=== PATIENT | male | born 1975 | race Caucasian/White ===

== ENCOUNTER 2019-10-26 13:00 | Inpatient (IN) | payer BC ==
[~2019-10-26] VITALS: Ht 180.3 cm; Wt 99.1 kg
[2019-10-26] MEDS ORDERED: GLUCOSE 4 GM CHEW TABLET PO PRN (14:00)
[2019-10-26] MEDS ORDERED: ACETAMINOPHEN TAB 650MG DOSE (2X325MG) PO PRN (14:00)
[2019-10-26] MEDS ORDERED: GLUCAGON FOR INJ 1 MG VIAL (J1610) SC PRN (14:00)
[2019-10-26] MEDS ORDERED: DEXTROSE 50% 50 ML SYRINGE IV PRN (14:00)
[2019-10-26] MEDS ORDERED: MOM 30ML SUSPENSION UDC PO PRN (14:00)
--- NOTE | 2019-10-26 14:39 | HPEPDOC ---
[place] [place] Worker Note DATE OF ADMISSION: 10-26-19 DATE OF SERVICE: 10-26-19 TIME OF ADMISSION: Please refer to physician's admission order. SOURCE OF ADMISSION INFORMATION:[facility] records and patient CHIEF COMPLAINT: stroke HISTORY OF PRESENT ILLNESS: 44 pmh htn, dm2, hereditary hypertriglyceridemia, smoker, obesity admitted to [facility] on 10-21-19 for left sided weakness and slurred speech and diagnosed with MRI finding of Acute infarct in the primarily [right] temporoparietal and right inferior lateral frontal region associated with punctate hemorrhages. CTH was negative for acute intracranial hemorrhage and he received TPA for a large vessel right MCA, inferior branch region and right SUPERVISORY AIDE territory occlusion. ECHO on 10-24-19 showed no interatrial shunt with an LVEF of 55-60%. The source of his stroke was deemed to be cardio embolic and he was instructed to follow-up as an outpatient for a loop recorder. . Repeat CTH on 10-24-19 showed, Redemonstration of an evolving infarct in the right temporal parietal region with no acute intracranial hemorrhage identified. No significant interval changes seen. He complained of left hip pain for which imaging was negative for fracture. He was evaluated by therapy, found to have impairments in mobility and ADLs and deemed medically appropriate for discharge to ARU on 10-26-19. REVIEW OF SYSTEMS: The following is a completed review of systems and has been reviewed. Review of systems otherwise unremarkable. PAIN: Patient self reports no pain EYES: No recent vision changes EARS, NOSE, & THROAT: +dysphagia CARDIOVASCULAR: Denies chest pain or palpitations PULMONARY: Denies shortness of breath GASTROINTESTINAL: Denies constipation/diarrhea GENITOURINARY: denies dysuria MUSCULOSKELETAL: left sided weakness NEUROLOGICAL:left sided paresis HEMATOLOGICAL: denies easy bruising SKIN:scattered shiny erythematous and papular lesions PSYCHIATRIC: Unremarkable All other review of systems found to be negative. PAST MEDICAL HISTORY: as per HPI PAST SURGICAL HISTORY: +pilonidal cyst removal ALLERGIES: Please see below. MEDICATIONS: Please see below. 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 GENERAL: Pleasant and cooperative. No acute distress. HEENT: PERRL. Extraocular movements intact. Clear conjunctiva CARDIOVASCULAR: Regular rate and rhythm. No murmurs, rubs, or gallops LUNGS: Clear to auscultation bilaterally. RLL + wheezes. No rhonchi ABDOMEN: Soft, nontender, nondistended. Positive bowel sounds. Normal active bowel sounds NEUROLOGICAL: Alert and oriented times three. Cranial nerves II through XII grossly intact. decreased sensation to light touch on LUE and LLE with left sdied inattention EXTREMITIES: 5\5 strength right upper extremities. Left 2/5 elbow flexors, 1/5 elbow extenors, 3/5 wrist extension, liberal arts dean 2/5 5\5 strength right lower extremity. 2/5 left hip flexors, 4/5 knee extensors/ankle DF/EHL. PF SKIN: sacral fold with healed incision, left elbow effusion, bilat anterior shins with shiny erythematous plaques with yellow pigmented papules, scattered papular lesions LABORATORY DATA: Please see below. IMAGING:Imaging documentation personally reviewed by record FUNCTIONAL STATUS: Premorbid: Independent with all activities of daily life as well as mobility On Admission: Maximum assistance for bathing, upper body dressing, bed chair and wheelchair transfers, toilet transfers, ambulation. GOALS: Mod-I household distances for ambulation, stairs, functional transfers, dressing, toileting, supervision for bathing, medical optimization ASSESSMENT:44-year-old M with past medical history of DM who presents status post right MCA territory infarct PLAN: 1. Rehab- PT/OT advance gait and ADL training, dynamic balance training, stren gthen/stretch/maintain ROM all 4 limbs -[employer] OFFICER evaluate for of and dysphagia- on level 2 and nectar 2. Neuro: s/p right MCA infarct having received tpa with left sided paresis and neglect -c/u ASA and statin for secondary stroke prevention, BP control -prozac for motor recovery -patient reporting right sided headache, suspect nicotine and caffeine withdrawal- will start Nicoderm patch, Fiorecet prn, and standing tylenol 3. Cardiac: hx of HTN, will start metoprolol here, c/u monitor-medicine consulted to assist in management -HLD with hypertriglyceridemia with scattered Xanthoma lesions-c/u statin and Tricor 4. resp: encourage incentive spirometry, monitor for infection -duonebs 5. Endo: pmh DM c/u Levemir and ISS, adjust prn 6. : with with urinary retention at LEO started on Flomax, will c/u- monitor PVRs 7. DVT ppx: Lovenox and TEDs, will order admission doppler 8. GI ppx: protonix 9. Pain: tylenol prn 10. Psych: trazodone qHS 11. Dispo: TBD POST ADMISSION PHYSICIAN EVALUATION: Medical and functional status: Description of medical status, medical assessment: As above. Rehabilitation diagnosis and current and prior cold morbid medical conditions as above. Risk of complications and plans to mitigate them as above. Description of functional status current status is as above. Prior status as above. Status compared to preadmission: There are no clinically significant differences between the patient's current status and the information described on the preadmission screening document. Treatment plan anticipated: Treatment plan is as described above. Required dis ciplines including physical therapy, occupational therapy, others as noted above. Intensity of services: 3 hours a day, 6 days a week. Special considerations: There are no specific special or safety considerations that would likely preclude immediate implementation of an intensive rehabilitation program or subsequently influence the plan of care. ATTESTATION: Considering all the information above, it is my best judgment that this patient requires intensive rehabilitation therapy as described above and an inpatient hospital environment due to the complexity of nursing, medical, and rehabilitation needs required by the patient. Furthermore, this patient can reasonably be expected to participate in an benefit from an inpatient rehabilitation stay with an interdisciplinary team approach to the delivery of rehabilitation care under the direction and supervision of rehabilitation physician. PROGNOSIS:good ESTIMATED LENGTH OF STAY: 28-31 days. PROJECTED DISCHARGE DESTINATION: Home with family support and any durable medical equipment required to increase functional safety and mobility. TIME SPENT COUNSELING AND COORDINATING INITIAL CARE: Greater than 70 minutes. Vital Signs Vital Signs Date Time Temp Pulse Resp B/P (MAP) Pulse Ox O2 Delivery O2 Flow Rate FiO2 10/26/19 14:55 97.9 72 20 166/87 (113) 95 Room Air Home Medications Scheduled Aspirin (Aspirin) 81 Mg Tab.chew, 81 MG PO DAILY, (Reported) Atorvastatin Calcium (Atorvastatin Calcium) 80 Mg Tablet, 80 MG PO DAILY, (Reported) Enoxaparin Sodium (Lovenox) 40 Mg/0.4 Ml Syringe, 40 MG SC DAILY, (Reported) Fenofibrate Nanocrystallized (Fenofibrate) 145 Mg Tablet, 145 MG PO DAILY, (Reported) Fluoxetine HCl (Prozac) 20 Mg Capsule, 20 MG PO DAILY, (Reported) Insulin Glargine (Lantus) 100 Unit/1 Ml Vial, 10 UNITS SC QHS, (Reported) Insulin Human Lispro (Humalog) 100 Unit/1 Ml Vial, 1 DOSE SC AC, (Reported) PER SLIDING SCALE Magnesium Oxide (Magnesium Oxide) 400 Mg Tablet, 400 MG PO DAILY, (Reported) Tamsulosin HCl (Flomax) 0.4 Mg Capsule, 0.4 MG PO DAILY, (Reported) Scheduled PRN Acetaminophen (Tylenol) 325 Mg Tablet, 650 MG PO Q6H PRN for PAIN, (Reported) Diclofenac Sodium (Voltaren) 100 Gm Gel..gram., 2 GRAMS TOP TID PRN for PAIN, (Reported) APPLY TO RIGHT HIP Ketorolac Tromethamine (Ketorolac Tromethamine) 10 Mg Tablet, 10 MG PO Q6H PRN for PAIN, (Reported) Allergies Coded Allergies: lactose (Verified Adverse Reaction, Mild, GI UPSET, 10/26/19) A-FIB/CHADSVASC A-FIB History Current/History of A-Fib/PAF?: No TERRANCE PULIDO MD Oct 26, 2019 14:38
[2019-10-26 14:55] VITALS: BP 166/87
[2019-10-26] MEDS ORDERED: FLOM0.4C39 PO (15:41)
[2019-10-26] MEDS ORDERED: KETO10TAB PO (15:41)
[2019-10-26] MEDS ORDERED: ATOR80TA59 PO (15:41)
[2019-10-26] MEDS ORDERED: ACET-907 PO (15:41)
[2019-10-26] MEDS ORDERED: FENO145T7 PO (15:41)
[2019-10-26] MEDS ORDERED: ASPI81CH33 PO (15:41)
[2019-10-26] MEDS ORDERED: PROZ20CA11 PO (15:41)
[2019-10-26] MEDS ORDERED: LOVE1INJ SC (15:41)
[2019-10-26] MEDS ORDERED: INSUHUMDS SC (15:41)
[2019-10-26] MEDS ORDERED: VOLT1GEL15 TOP (15:41)
[2019-10-26] MEDS ORDERED: MAGN400T2 PO (15:41)
[2019-10-26] MEDS ORDERED: INSULANT SC (15:41)
[2019-10-26] MEDS: NICOTINE 14 MG/24 HR TRANSDERMAL TD SCH (17:58)
[2019-10-26] MEDS: HumaLOG INSULIN (NovoLOG) PER UNIT SC SCH ×2 (17:58→21:00)
[2019-10-26] MEDS: ACETAMINOPHEN TAB 650MG DOSE (2X325MG) PO SCH ×2 (17:58→21:58)
[2019-10-26] MEDS: IPRATROPIUM 0.5MG/ALBUTEROL 2.5MG INH SOL UD 3ML (DUONEB)(J7620) NEB SCH ×2 (18:09→19:39)
[2019-10-26] MEDS ORDERED: LEVEMIR (INSULIN DETEMIR) 1 UNITS/0.01ML SC SCH (21:00)
[2019-10-26 21:17] VITALS: BP 150/79
[2019-10-26] MEDS: traZODone 25MG PER 1/2 TABLET PO SCH (21:57)
[2019-10-26] MEDS: METOPROLOL TART 25 MG TABLET PO SCH (21:58)
[2019-10-26] MEDS: DOCUSATE SODIUM 100 MG CAP PO SCH (21:58)
[2019-10-26] MEDS: SENNA 8.6 MG TAB (SENOKOT) PO SCH (21:59)
[2019-10-27] VITALS (9 sets, daily range): BP systolic 146–211; BP diastolic 71–110
[2019-10-27] MEDS: FIORICET TAB PO PRN ×3 (01:24→12:37)
[2019-10-27] MEDS: IPRATROPIUM 0.5MG/ALBUTEROL 2.5MG INH SOL UD 3ML (DUONEB)(J7620) NEB SCH ×3 (07:02→19:56)
[2019-10-27 07:06] LABS: BASO % 0.2 % (0.0-1.0); EOS # 0.3 10^3/uL (0.0-0.5); EOS % 4.6 % (0.0-3.0); HEMATOCRIT 42.7 % (42.0-52.0); HEMOGLOBIN 14.6 g/dl (13.5-17.5); LYMPH # 1.5 10^3/uL (1.5-5.0); LYMPH % 25.4 % (24.0-44.0); MEAN CORPUSCULAR HEMOGLOBIN 29.9 pg (27.0-33.0); MEAN CORPUSCULAR HGB CONC 34.2 g/dl (32.0-36.5); MEAN CORPUSCULAR VOLUME 87.3 fl (80.0-96.0); MONO # 0.6 10^3/uL (0.0-0.8); NEUTROPHILS # 3.5 10^3/uL (1.5-8.5); NEUTROPHILS % 59.5 % (36.0-66.0); PLATELET COUNT, AUTOMATED 180 10^3/uL (150-450); RED BLOOD COUNT 4.89 10^6/uL (4.30-6.10); WHITE BLOOD COUNT 5.9 10^3/uL (4.0-10.0)
[2019-10-27 07:41] LABS: ALBUMIN 3.2 GM/DL (3.2-5.2); ALT/SGPT 49 U/L (12-78); BLOOD UREA NITROGEN 15 MG/DL (7-18); CALCIUM LEVEL 8.6 MG/DL (8.5-10.1); CARBON DIOXIDE LEVEL 32 MEQ/L (21-32); CHLORIDE LEVEL 104 MEQ/L (98-107); GLOMERULAR FILTRATION RATE > 60.0 (>60); GLUCOSE, FASTING 164 MG/DL (70-100); SODIUM LEVEL 137 MEQ/L (136-145); TOTAL PROTEIN 6.3 GM/DL (6.4-8.2)
--- NOTE | 2019-10-27 08:44 | REP ---
Clinical: Immobility . Technique: Davila scale and color Doppler evaluation of the right and left lower extremities using linear high frequency transducer. Findings: Ultrasound examination of the right and left lower extremity deep venous structures from the common femoral vein to the popliteal vein demonstrates normal compressibility flow and wave patterns in response to respiration and augmentation. There is no evidence for deep venous thrombosis. Incidental duplicated left mid femoral vein. Impression: No evidence for deep venous thrombosis the bilateral lower extremities . Electronically Signed by Sina Wick MD 10/27/2019 08:36 A
[2019-10-27] MEDS: NICOTINE 14 MG/24 HR TRANSDERMAL TD SCH (08:55)
[2019-10-27] MEDS: HumaLOG INSULIN (NovoLOG) PER UNIT SC SCH ×4 (08:56→21:00)
[2019-10-27] MEDS: DOCUSATE SODIUM 100 MG CAP PO SCH ×2 (08:57→21:00)
[2019-10-27] MEDS: FLUoxetine 20 MG CAP PO SCH (08:57)
[2019-10-27] MEDS: ENOXAPARIN 40 MG/0.4 ML SYRINGE (J1650) SC SCH (08:57)
[2019-10-27] MEDS: ACETAMINOPHEN TAB 650MG DOSE (2X325MG) PO SCH ×3 (08:58→22:23)
[2019-10-27] MEDS: FENOFIBRATE 145 MG TAB (TRICOR) PO SCH (08:58)
[2019-10-27] MEDS: TAMSULOSIN 0.4 MG CAP PO SCH (08:59)
[2019-10-27] MEDS: ASPIRIN 81 MG ENTERIC TAB PO SCH (08:59)
[2019-10-27] MEDS: PANTOPRAZOLE 40MG TAB (PROTONIX) PO SCH (08:59)
[2019-10-27] MEDS: MAGNESIUM OXIDE 400 MG TAB (MAG-OX) PO SCH (08:59)
[2019-10-27] MEDS: METOPROLOL TART 25 MG TABLET PO SCH ×2 (08:59→22:23)
[2019-10-27] MEDS: REMEDY PHYTOPLEX Z-GUARD PASTE 113GM TUBE (FROM STOREROOM PRODUCT) TOP SCH ×3 (09:00→21:00)
[2019-10-27] MEDS ORDERED: BISACODYL 10 MG SUPP PR PRN (10:45)
[2019-10-27] MEDS ORDERED: LABETALOL 100 MG TAB PO ONE (12:30)
[2019-10-27] MEDS: traMADol 50 MG TAB PO PRN (12:38)
[2019-10-27] MEDS ORDERED: ASPIRIN 325 MG TAB PO STA (13:16)
[2019-10-27] MEDS ORDERED: NITROGLYCERIN 0.4 MG SUBL TABLET As Ordered ONE (13:22)
[2019-10-27] MEDS ORDERED: NITROGLYCERIN 0.4 MG SUBL TABLET SL PRN (13:30)
[2019-10-27] MEDS ORDERED: ONDANSETRON 4 MG ORAL DISINTEGRATING TAB (Q0162 PER 1MG) PO PRN (13:30)
[2019-10-27] MEDS ORDERED: ONDANSETRON 4MG/2ML VIAL (J2405) IV ONE ×2 (13:45→20:30)
--- NOTE | 2019-10-27 14:35 | REP ---
Clinical: Recent acute infarction. Findings: Large area of low density and vasogenic edema involves the right frontotemporal and parietal regions consistent with the given history of recent infarction there is mild mass effect with subtle compression to the right lateral ventricle without significant midline shift or evidence for obstructive hydrocephalus. No evidence for hemorrhage. Remainder of the examination appears relatively normal. Findings: 1. Progressive encephalomalacia and low density changes in the right hemisphere consistent with the given history of recent acute infarction. Mild mass effect without complete compression to the right lateral ventricle and without significant midline shift. 2. No evidence for parenchymal or extra-axial hemorrhage. Electronically Signed by Sina Wick MD 10/27/2019 02:27 P
[2019-10-27] MEDS: SENNA 8.6 MG TAB (SENOKOT) PO SCH (21:00)
--- NOTE | 2019-10-27 21:25 | HPEPDOC ---
General Date of Admission Oct 26, 2019 at 14:55 Date of Service: Oct 27, 2019 Attending Physician: BRIELLE CARTER MD Chief Complaint The patient is a 44-year-old male admitted with a reason for visit of Stroke. Source: Patient, Family Exam Limitations: No limitations Severity: Severe Associated Symptoms: Chest Pain, Headaches History of Present Illness 44 yo man with a history of DM2, familial hypertriglyceridemia, active smoker, obesity who is admitted to the ARU for rehabilitation post CVA who was recently admitted to [facility] on 10/21 for acute L sided weakness and slurred speech and had was diagnosed with R MCA stock, seen evolving on initial non con head CT without bleeding and therefore received tPA, had an MRI that confirmed R temporoparietal and right inferior lateral frontal lobe CVA with punctate hemorrhages within the R MCA distribution. Ultimately his stroke was deemed embolic though TTE with bubble study on 10/24 did not show a PFO and he did not have evidence of cardiac thrombi and EF was 55-60% and he was instructed to follow-up as an outpatient for a loop recorder and otherwise not started on anticoagulation. His repeat noncon headt CT on 10/24 did not show any interval bleeding and redemonstrated the initial findings. His course was c/b new onset severe headache that were managed with pain medications, with the best response being from toradol, as well as high anxiety. He was admitted to the ARU on 10/26 and his course was uneventful until this morning when I was called to bedside by nursing reporting an unremitting headache with associated hypertension and 2 hours later was having chest pain/pressure. I ordered an EKG that was stable from prior with RBBB and LAFB without ischemic changes, troponin that was negative, and gave him [id number] and SL nitro that tremendously unfortunately worsened his headache. However, given that he had a recent large CVA and tPA, I did a non con head CT that showed some vasogenic edema with mild midline shift but no hemorrhagic conversion. His headache finally remitted. Home Medications Scheduled Aspirin (Aspirin) 81 Mg Tab.chew, 81 MG PO DAILY, (Reported) Atorvastatin Calcium (Atorvastatin Calcium) 80 Mg Tablet, 80 MG PO DAILY, (Reported) Enoxaparin Sodium (Lovenox) 40 Mg/0.4 Ml Syringe, 40 MG SC DAILY, (Reported) Fenofibrate Nanocrystallized (Fenofibrate) 145 Mg Tablet, 145 MG PO DAILY, (Reported) Fluoxetine HCl (Prozac) 20 Mg Capsule, 20 MG PO DAILY, (Reported) Insulin Glargine (Lantus) 100 Unit/1 Ml Vial, 10 UNITS SC QHS, (Reported) Insulin Human Lispro (Humalog) 100 Unit/1 Ml Vial, 1 DOSE SC AC, (Reported) PER SLIDING SCALE Magnesium Oxide (Magnesium Oxide) 400 Mg Tablet, 400 MG PO DAILY, (Reported) Tamsulosin HCl (Flomax) 0.4 Mg Capsule, 0.4 MG PO DAILY, (Reported) Scheduled PRN Acetaminophen (Tylenol) 325 Mg Tablet, 650 MG PO Q6H PRN for PAIN, (Reported) Diclofenac Sodium (Voltaren) 100 Gm Gel..gram., 2 GRAMS TOP TID PRN for PAIN, (Reported) APPLY TO RIGHT HIP Ketorolac Tromethamine (Ketorolac Tromethamine) 10 Mg Tablet, 10 MG PO Q6H PRN for PAIN, (Reported) Allergies Coded Allergies: lactose (Verified Adverse Reaction, Mild, GI UPSET, 10/26/19) Past Medical History Medical History as per HPI Family History Significant Family History: No pertinent family hx Social History * Smoker: current smoker Alcohol: Denies Drugs: denies Recent Travel/Sick Contacts: Denies: Recent travel, Recent sick contacts Psychosocial History: Anxiety 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, 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, no 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/+ smoking/illicit drugs A-FIB/CHADSVASC A-FIB History Current/History of A-Fib/PAF?: No Current PO Anticoag Therapy: No Age/Risk Factor Scoring CHADSVASC: CHADSVASC Response (Comments) Value Age Risk Factor Age < 65 years old 0 Gender Risk Factor Male 0 Hx of CHF No 0 Hx of HTN Yes 1 Hx of Stroke/TIA/or VTE Yes 2 Hx of Diabetes Yes 1 Hx of Vascular Disease No 0 Total 4 Treatment Treatment ordered: NONE Reason Anticoagulant not given: Not indicated/[id number] Review of Systems Constitutional: Reports: Other (severe headaches recently); Denies: Chills, Fever, Night Sweats Eyes: Denies: Pain, Vision change ENT: Denies: Head Aches, Ear Pain, Dysphagia Skin: Denies: Rash, Lesions, Breakdown Pulmonary: Denies: Dyspnea, Cough Cardiovascular: Denies: Chest Pain, Palpitations, Orthopnea, Paroxysmal Noc. Dyspnea, Lt Headedness Gastrointestinal: Reports: Nausea, Vomiting; Denies: Abdominal Pain, Diarrhea Genitourinary: Denies: Dysuria, Frequency, Incontinence, Retention Hematologic: Denies: Bruising, Bleeding Excessively Endocrine: Denies: Polydipsia, Polyphagia, Polyuria, Heat Intolerance, Cold Intolerance, Other Endocrine Sx Neurological: Reports: Other Symptoms (Left sided hemiparesis) Psych: Reports: Anxiety Physical Examination General Exam: Positive: Alert, No Acute Distress, Other (initially when I met him, he was in no acute distress but he was in moderate distress by the time we were performing the noted work up, and when I returned, he was comfortably laying in bed a few hours later) Eye Exam: Positive: PERRLA, Conjunctiva & lids normal, EOMI; Negative: Sclera icteric ENT Exam: Positive: Atraumatic, Mucous membr. moist/pink, Pharynx Normal Neck Exam: Positive: Supple; Negative: JVD, thyromegaly Chest Exam: Positive: Clear to auscultation, Normal air movement Heart Exam: Positive: Rate Normal, Regular Rhythm, Normal S1, Normal S2; Negative: Murmurs, Rubs Abdomen Exam: Positive: Normal bowel sounds, Soft; Negative: Tenderness, Hepatospenomegaly Extremity Exam: Positive: Normal pulses; Negative: Clubbing, Cyanosis, Edema Skin Exam: Positive: Nl turgor and temperature; Negative: Breakdown, Lesion Neuro Exam: Positive: Strength at 5/5 X4 ext (Full strength, tone and sensation on R and flaccid L upper and lower extremities with little to no sensation at this time. Speech is clear. CN 2-12 are grossly normal) Psych Exam: Positive: Anxiety, Oriented x 3 Vital Signs Vital Signs Date Time Temp Pulse Resp B/P (MAP) Pulse Ox O2 Delivery O2 Flow Rate FiO2 10/27/19 16:15 98.3 76 20 160/88 (112) 95 Room Air Laboratory Data Labs 24H Laboratory Tests 2 10/26/19 20:47: Bedside Glucose (Misc Panel) 214H 10/27/19 06:15: Bedside Glucose (Misc Panel) 147H 10/27/19 06:48: Immature Granulocyte % (Auto) 0.3, Neutrophils (%) (Auto) 59.5, Lymphocytes (%) (Auto) 25.4, Monocytes (%) (Auto) 10.0H, Eosinophils (%) (Auto) 4.6H, Basophils (%) (Auto) 0.2, Neutrophils # (Auto) 3.5, Lymphocytes # (Auto) 1.5, Monocytes # (Auto) 0.6, Eosinophils # (Auto) 0.3, Basophils # (Auto) 0.0, Nucleated Red Blood Cells % (auto) 0.0, Anion Gap 1L, Glomerular Filtration Rate > 60.0, Calcium Level 8.6, Total Bilirubin 1.0, Aspartate Amino Transf (AST/SGOT) 33, Alanine Aminotransferase (ALT/SGPT) 49, Alkaline Phosphatase 64, Total Protein 6.3L, Albumin 3.2, Albumin/Globulin Ratio 1.03 10/27/19 11:39: Bedside Glucose (Misc Panel) 189H 10/27/19 13:37: Troponin I < 0.02 10/27/19 13:41: Bedside Glucose (Misc Panel) 170H 10/27/19 16:50: Bedside Glucose (Misc Panel) 178H CBC/BMP Laboratory Tests 10/27/19 06:48 Assessment/Plan 44-year-old M with past medical history of DM, smoker and HTN who is admitted to the ARU s/p large right MCA CVA with L sided hemiparesis and dysphagia with ongoing intensive rehabilitation with course c/b severe post CVA headaches and non cardiac, likely anxiety related chest pain. s/p right MCA CVA s/p tPA with left sided paresis: -continue ASA -maintain adequate BP control to SBP<160. Switch lopressor BID to amlodipine 10 daily Ongoing episodic severe headaches: -While he has a history of nicotine and caffeine addiction, the severity of the headaches may be due to post CVA with vasogenic edema - continue nicotine patch, Fiorecet prn, and standing tylenol started by PMR physician -Add tramadol 50Q8H PRN for severe headache, and if severe and not responsive to tramadol may give toradol (he reports that it worked well at [facility]) HTN: -may discontinue lopressor BID and start amlodipine 10 tomorrow morning HLD: -lipitor 80mg Hypertriglyceridemia: -fenofibrate DM: -continue home levemir and SSI, FSBG AC/HS and hypoglycemia protocol Dysphagia: -nectar thick per swallow eval recs Rehabilitation: per PMR recommendations DVT ppx: on TEDs and lovenox. Note sure why he had a doppler ultrasound. Plan / VTE VTE Prophylaxis Ordered?: Yes BRIELLE CARTER MD Oct 27, 2019 21:24
[2019-10-27] MEDS: traZODone 25MG PER 1/2 TABLET PO SCH (22:23)
[2019-10-27] MEDS: ATORVASTATIN 20 MG TAB PO SCH (22:23)
[2019-10-27] MEDS: LEVEMIR (INSULIN DETEMIR) 1 UNITS/0.01ML SC SCH (22:26)
--- NOTE | 2019-10-27 22:27 | ECGEPIP ---
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 No prior ECG available for comparison at the time of interpretation. Electronically Signed on 10-27-2019 22:26:57 EST by Jorge Lawson
[2019-10-28] MEDS: traMADol 50 MG TAB PO PRN (01:36)
[2019-10-28] MEDS ORDERED: KETOROLAC 30 MG/ML VIAL (J1885) IV ONE (03:30)
[2019-10-28] MEDS: FIORICET TAB PO PRN (04:53)
[2019-10-28 06:00] VITALS: BP 180/74
[2019-10-28] MEDS: IPRATROPIUM 0.5MG/ALBUTEROL 2.5MG INH SOL UD 3ML (DUONEB)(J7620) NEB SCH ×3 (07:21→19:58)
[2019-10-28] MEDS: METOPROLOL TART 25 MG TABLET PO SCH (07:23)
[2019-10-28] MEDS: ACETAMINOPHEN TAB 650MG DOSE (2X325MG) PO SCH ×4 (07:23→21:49)
[2019-10-28] MEDS: ASPIRIN 81 MG ENTERIC TAB PO SCH (08:47)
[2019-10-28] MEDS: HumaLOG INSULIN (NovoLOG) PER UNIT SC SCH ×4 (08:47→21:00)
[2019-10-28] MEDS: MAGNESIUM OXIDE 400 MG TAB (MAG-OX) PO SCH (08:47)
[2019-10-28] MEDS: TAMSULOSIN 0.4 MG CAP PO SCH (08:47)
[2019-10-28] MEDS: ENOXAPARIN 40 MG/0.4 ML SYRINGE (J1650) SC SCH (08:48)
[2019-10-28] MEDS: FENOFIBRATE 145 MG TAB (TRICOR) PO SCH (08:48)
[2019-10-28] MEDS: DOCUSATE SODIUM 100 MG CAP PO SCH ×2 (08:48→21:49)
[2019-10-28] MEDS: FLUoxetine 20 MG CAP PO SCH (08:48)
[2019-10-28] MEDS: NICOTINE 14 MG/24 HR TRANSDERMAL TD SCH (08:48)
[2019-10-28] MEDS: PANTOPRAZOLE 40MG TAB (PROTONIX) PO SCH (08:48)
[2019-10-28] MEDS: REMEDY PHYTOPLEX Z-GUARD PASTE 113GM TUBE (FROM STOREROOM PRODUCT) TOP SCH ×3 (08:49→21:00)
[2019-10-28] MEDS: **hydrALAZINE HCL** 25 MG TAB PO SCH ×3 (10:33→21:50)
[2019-10-28] MEDS ORDERED: ONDANSETRON 4MG/2ML VIAL (J2405) IV PRN (10:45)
[2019-10-28 14:26] VITALS: BP 140/79
[2019-10-28 20:30] VITALS: BP 132/74
[2019-10-28] MEDS: traZODone 25MG PER 1/2 TABLET PO SCH (21:48)
[2019-10-28] MEDS: SENNA 8.6 MG TAB (SENOKOT) PO SCH (21:48)
[2019-10-28] MEDS: ATORVASTATIN 20 MG TAB PO SCH (21:48)
[2019-10-28] MEDS: METOPROLOL TART 50 MG TAB PO SCH (21:49)
[2019-10-28] MEDS: LEVEMIR (INSULIN DETEMIR) 1 UNITS/0.01ML SC SCH (21:49)
[2019-10-29 05:23] VITALS: BP_SYST 128; BP_SYST 158; BP_DIAS 60; BP_DIAS 74
[2019-10-29] MEDS: FIORICET TAB PO PRN (06:00)
[2019-10-29] MEDS: traMADol 50 MG TAB PO PRN (06:05)
[2019-10-29 06:45] VITALS: BP 146/74
[2019-10-29] MEDS: IPRATROPIUM 0.5MG/ALBUTEROL 2.5MG INH SOL UD 3ML (DUONEB)(J7620) NEB SCH ×3 (07:35→20:36)
[2019-10-29] MEDS: DOCUSATE SODIUM 100 MG CAP PO SCH ×2 (07:58→20:43)
[2019-10-29] MEDS: ACETAMINOPHEN TAB 650MG DOSE (2X325MG) PO SCH ×3 (08:05→20:43)
[2019-10-29] MEDS: FENOFIBRATE 145 MG TAB (TRICOR) PO SCH (08:05)
[2019-10-29] MEDS: HumaLOG INSULIN (NovoLOG) PER UNIT SC SCH ×4 (08:05→20:44)
[2019-10-29] MEDS: ENOXAPARIN 40 MG/0.4 ML SYRINGE (J1650) SC SCH (08:05)
[2019-10-29] MEDS: NICOTINE 14 MG/24 HR TRANSDERMAL TD SCH (08:06)
[2019-10-29] MEDS: FLUoxetine 20 MG CAP PO SCH (08:06)
[2019-10-29] MEDS: TAMSULOSIN 0.4 MG CAP PO SCH (08:06)
[2019-10-29] MEDS: ASPIRIN 81 MG ENTERIC TAB PO SCH (08:06)
[2019-10-29] MEDS: PANTOPRAZOLE 40MG TAB (PROTONIX) PO SCH (08:06)
[2019-10-29] MEDS: MAGNESIUM OXIDE 400 MG TAB (MAG-OX) PO SCH (08:06)
[2019-10-29] MEDS: **hydrALAZINE HCL** 25 MG TAB PO SCH ×3 (08:06→20:43)
[2019-10-29] MEDS: METOPROLOL TART 50 MG TAB PO SCH ×2 (08:06→20:43)
[2019-10-29 08:52] LABS: HEMOGLOBIN 14.9 g/dl (13.5-17.5); MEAN CORPUSCULAR HEMOGLOBIN 30.3 pg (27.0-33.0); MEAN CORPUSCULAR HGB CONC 34.7 g/dl (32.0-36.5); MEAN CORPUSCULAR VOLUME 87.6 fl (80.0-96.0); PLATELET COUNT, AUTOMATED 177 10^3/uL (150-450); RED BLOOD COUNT 4.91 10^6/uL (4.30-6.10); WHITE BLOOD COUNT 6.7 10^3/uL (4.0-10.0)
[2019-10-29] MEDS: REMEDY PHYTOPLEX Z-GUARD PASTE 113GM TUBE (FROM STOREROOM PRODUCT) TOP SCH ×3 (09:00→20:45)
[2019-10-29] MEDS: GABAPENTIN 100 MG CAP PO SCH ×3 (10:50→20:42)
[2019-10-29] MEDS: DULoxetine 30 MG CAP (CYMBALTA) PO SCH (10:50)
[2019-10-29 14:00] VITALS: BP 138/70
[2019-10-29] MEDS: ATORVASTATIN 20 MG TAB PO SCH (20:43)
[2019-10-29] MEDS: traZODone 25MG PER 1/2 TABLET PO SCH (20:43)
[2019-10-29] MEDS: SENNA 8.6 MG TAB (SENOKOT) PO SCH (20:44)
[2019-10-29] MEDS: LEVEMIR (INSULIN DETEMIR) 1 UNITS/0.01ML SC SCH (20:45)
[2019-10-29 22:21] VITALS: BP 150/86
[2019-10-30 05:57] VITALS: BP 148/84
[2019-10-30] MEDS: IPRATROPIUM 0.5MG/ALBUTEROL 2.5MG INH SOL UD 3ML (DUONEB)(J7620) NEB SCH ×3 (07:14→19:46)
[2019-10-30] MEDS: HumaLOG INSULIN (NovoLOG) PER UNIT SC SCH ×4 (07:27→21:00)
[2019-10-30] MEDS: PANTOPRAZOLE 40MG TAB (PROTONIX) PO SCH (07:27)
[2019-10-30] MEDS: GABAPENTIN 100 MG CAP PO SCH ×3 (07:27→21:24)
[2019-10-30] MEDS: ENOXAPARIN 40 MG/0.4 ML SYRINGE (J1650) SC SCH (07:27)
[2019-10-30] MEDS: ASPIRIN 81 MG ENTERIC TAB PO SCH (07:28)
[2019-10-30] MEDS: FENOFIBRATE 145 MG TAB (TRICOR) PO SCH (07:28)
[2019-10-30] MEDS: DULoxetine 30 MG CAP (CYMBALTA) PO SCH (07:28)
[2019-10-30] MEDS: TAMSULOSIN 0.4 MG CAP PO SCH (07:28)
[2019-10-30] MEDS: MAGNESIUM OXIDE 400 MG TAB (MAG-OX) PO SCH (07:28)
[2019-10-30] MEDS: DOCUSATE SODIUM 100 MG CAP PO SCH ×2 (07:28→21:00)
[2019-10-30] MEDS: METOPROLOL TART 50 MG TAB PO SCH ×2 (07:28→21:21)
[2019-10-30] MEDS: **hydrALAZINE HCL** 25 MG TAB PO SCH ×3 (07:29→21:22)
[2019-10-30] MEDS: NICOTINE 14 MG/24 HR TRANSDERMAL TD SCH (07:29)
[2019-10-30] MEDS: ACETAMINOPHEN TAB 650MG DOSE (2X325MG) PO SCH ×3 (07:29→21:22)
[2019-10-30] MEDS: REMEDY PHYTOPLEX Z-GUARD PASTE 113GM TUBE (FROM STOREROOM PRODUCT) TOP SCH ×3 (07:29→21:00)
[2019-10-30 08:26] LABS: BLOOD UREA NITROGEN 18 MG/DL (7-18); CALCIUM LEVEL 8.8 MG/DL (8.5-10.1); CARBON DIOXIDE LEVEL 29 MEQ/L (21-32); CHLORIDE LEVEL 103 MEQ/L (98-107); CREATININE FOR GFR 0.85 MG/DL (0.70-1.30); GLOMERULAR FILTRATION RATE > 60.0 (>60); GLUCOSE, FASTING 199 MG/DL (70-100); SODIUM LEVEL 137 MEQ/L (136-145)
[2019-10-30] MEDS ORDERED: DULoxetine 30 MG CAP (CYMBALTA) PO SCH (09:00)
[2019-10-30] MEDS: traMADol 50 MG TAB PO PRN (12:32)
[2019-10-30 14:00] VITALS: BP 110/56
[2019-10-30 20:00] VITALS: BP 130/67
[2019-10-30] MEDS: SENNA 8.6 MG TAB (SENOKOT) PO SCH ×2 (21:00→21:20)
[2019-10-30] MEDS: LEVEMIR (INSULIN DETEMIR) 1 UNITS/0.01ML SC SCH (21:20)
[2019-10-30] MEDS: traZODone 25MG PER 1/2 TABLET PO SCH (21:23)
[2019-10-30] MEDS: ATORVASTATIN 20 MG TAB PO SCH (21:23)
[2019-10-31] VITALS: BP 146/77
[2019-10-31 06:00] VITALS: BP 144/70
[2019-10-31] MEDS: IPRATROPIUM 0.5MG/ALBUTEROL 2.5MG INH SOL UD 3ML (DUONEB)(J7620) NEB SCH ×3 (07:30→19:33)
--- NOTE | 2019-10-31 07:42 | REP ---
AP pelvis: There are no pelvic fractures. The hip articulations and sacroiliac articulations are unremarkable. Mineralization is normal. Impression: Negative AP pelvis. Right hip two views: There is no fracture or dislocation. Mineralization joint space are unremarkable. There are no calcifications or foreign bodies. Impression: Negative right hip. Electronically Signed by Philip Bryan MD 10/31/2019 07:33 A
[2019-10-31] MEDS: PANTOPRAZOLE 40MG TAB (PROTONIX) PO SCH (09:09)
[2019-10-31] MEDS: ASPIRIN 81 MG ENTERIC TAB PO SCH (09:09)
[2019-10-31] MEDS: DULoxetine 30 MG CAP (CYMBALTA) PO SCH (09:09)
[2019-10-31] MEDS: TAMSULOSIN 0.4 MG CAP PO SCH (09:09)
[2019-10-31] MEDS: NICOTINE 14 MG/24 HR TRANSDERMAL TD SCH (09:09)
[2019-10-31] MEDS: FENOFIBRATE 145 MG TAB (TRICOR) PO SCH (09:09)
[2019-10-31] MEDS: HumaLOG INSULIN (NovoLOG) PER UNIT SC SCH ×4 (09:09→20:32)
[2019-10-31] MEDS: **hydrALAZINE HCL** 25 MG TAB PO SCH ×3 (09:10→20:31)
[2019-10-31] MEDS: MAGNESIUM OXIDE 400 MG TAB (MAG-OX) PO SCH (09:11)
[2019-10-31] MEDS: DOCUSATE SODIUM 100 MG CAP PO SCH ×2 (09:11→20:30)
[2019-10-31] MEDS: GABAPENTIN 100 MG CAP PO SCH ×3 (09:12→20:30)
[2019-10-31] MEDS: ACETAMINOPHEN TAB 650MG DOSE (2X325MG) PO SCH ×3 (09:12→20:30)
[2019-10-31] MEDS: METOPROLOL TART 50 MG TAB PO SCH ×2 (09:12→20:31)
[2019-10-31] MEDS: REMEDY PHYTOPLEX Z-GUARD PASTE 113GM TUBE (FROM STOREROOM PRODUCT) TOP SCH ×3 (09:13→20:32)
[2019-10-31] MEDS: ENOXAPARIN 40 MG/0.4 ML SYRINGE (J1650) SC SCH (09:13)
[2019-10-31] MEDS ORDERED: traMADol 50 MG TAB PO PRN (11:15)
[2019-10-31] MEDS ORDERED: PILL CUTTER 1 EACH XX PRN (11:30)
[2019-10-31 14:00] VITALS: BP 116/64
--- NOTE | 2019-10-31 15:04 | IPNPDOC ---
PM&R Progress Note DATE OF SERVICE: Oct 31, 2019 [employer] Fore[employer] Progress Note Subjective: Patient reports his headaches are much better since starting cymalta and gabapentin. He denies ay new weakness. REVIEW OF SYSTEMS: The following is a completed review of systems and has been reviewed. Review of systems otherwise unremarkable. PAIN: Patient self reports no pain EYES: No recent vision changes EARS, NOSE, & THROAT: +dysphagia CARDIOVASCULAR: Denies chest pain or palpitations PULMONARY: Denies shortness of breath GASTROINTESTINAL: Denies constipation/diarrhea GENITOURINARY: denies dysuria MUSCULOSKELETAL: left sided weakness NEUROLOGICAL:left sided paresis HEMATOLOGICAL: denies easy bruising SKIN:scattered shiny erythematous and papular lesions PSYCHIATRIC: Unremarkable All other review of systems found to be negative. PHYSICAL EXAMINATION: VITAL SIGNS: Please see below. GENERAL: Pleasant and cooperative. No acute distress. HEENT: PERRL. Extraocular movements intact. Clear conjunctiva CARDIOVASCULAR: Regular rate and rhythm. No murmurs, rubs, or gallops LUNGS: Clear to auscultation bilaterally. RLL + wheezes. No rhonchi ABDOMEN: Soft, nontender, nondistended. Positive bowel sounds. Normal active bowel sounds NEUROLOGICAL: Alert and oriented times three. Cranial nerves II through XII grossly intact. decreased sensation to light touch on LUE and LLE with left sdied inattention EXTREMITIES: 5\5 strength right upper extremities. Left 2/5 elbow flexors, 1/5 elbow extenors, 3/5 wrist extension, collections director 2/5 5\5 strength right lower extremity. 2/5 left hip flexors, 4/5 knee extensors/ ankle DF/EHL. PF SKIN: sacral fold with healed incision, left elbow effusion, bilat anterior shins with shiny erythematous plaques with yellow pigmented papules, scattered papular lesions ASSESSMENT:44-year-old M with past medical history of DM who presents status post right MCA territory infarct PLAN: 1. 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 Neuro: s/p right MCA infarct having received tpa with left sided paresis and neglect -c/u ASA and statin for secondary stroke prevention, BP control -prozac for motor recovery -patient reporting right sided headache, suspect nicotine and caffeine withdrawal as patient reports he had >10 cups of coffee a day, headaches improving since initiation of Cymbalta and gabapentin over the weekend -CTH on 10-27-19 negative for new infarct, no new deficit on exam 3. Cardiac: hx of HTN-c/u metoprolol and hydralazine, c/u monitor-medicine consulted to assist in management -HLD with hypertriglyceridemia with scattered Xanthoma lesions-c/u statin and Tricor 4. resp: encourage incentive spirometry, monitor for infection -c/u duonebs 5. Endo: pmh DM c/u Levemir and ISS, adjust prn 6. : with with urinary retention at [facility] started on Flomax, will c/u- monitor PVRs 7. DVT ppx: Lovenox and TEDs,admission dopplers negative 8. GI ppx: protonix 9. Pain: patient with right sided headaches, c/u Cymbalta and gabapentin dosing, tramadol prn (patient not taking) 10. Psych: trazodone qHS, will increase to 50mg 11. Dispo: TBD Allergies Coded Allergies: lactose (Verified Adverse Reaction, Mild, GI UPSET, 10/26/19) Vital Signs Vital Signs Date Time Temp Pulse Resp B/P (MAP) Pulse Ox O2 Delivery O2 Flow Rate FiO2 10/31/19 14:00 97.4 75 16 116/64 (81) 96 Room Air Laboratory Data Labs 24H Laboratory Tests 2 10/30/19 16:31: Bedside Glucose (Misc Panel) 219H 10/30/19 20:08: Bedside Glucose (Misc Panel) 171H 10/31/19 08:18: Bedside Glucose (Misc Panel) 180H 10/31/19 12:08: Bedside Glucose (Misc Panel) 130H Current Medications Current Medications Current Medications Medications (Trade) Dose Ordered Sig/Anthony Route PRN Reason Start Time Stop Time Status Last Admin Dose Admin Acetaminophen (Tylenol Tab) 650 mg Q4HP PRN PO fever/MILD PAIN (PS 1-4) 10/26/19 14:00 10/26/19 17:07 DC Acetaminophen (Tylenol Tab) 650 mg TID PO 10/26/19 16:00 10/31/19 09:12 Acetaminophen/ Butalbital/ Caffeine (Fioricet) 1 ea Q4HP PRN PO HEADACHE 2/19/20 17:15 10/29/19 06:00 Albuterol/ Ipratropium (Duoneb (Ipr 0.5mg/Alb 2.5mg)) 3 ml RTID NEB 10/26/19 20:00 10/31/19 07:30 Aspirin (Aspirin) 325 mg STAT STAT PO 10/27/19 13:16 10/27/19 13:21 DC 10/27/19 13:26 Aspirin (Ecotrin) 81 mg DAILY PO 10/27/19 09:00 10/31/19 09:09 Atorvastatin Calcium (Lipitor) 80 mg QHS PO 10/27/19 21:00 10/30/19 21:23 Bisacodyl (Dulcolax Suppository) 10 mg DAILYPRN PRN GA BOWEL CARE/CONSTIPATION 10/27/19 10:45 Dextrose (Dextrose 50%) 25 ml ASDIRECTED PRN IV SEE LABEL COMMENTS 10/26/19 14:00 Docusate Sodium (Colace) 100 mg BID PO 10/26/19 21:00 10/31/19 09:11 Duloxetine HCl (Cymbalta) 30 mg DAILY PO 10/29/19 09:00 10/31/19 09:09 Duloxetine HCl (Cymbalta) 30 mg DAILY PO 10/30/19 09:00 10/29/19 10:05 DC Enoxaparin Sodium (Lovenox) 40 mg DAILY SC 10/27/19 09:00 10/31/19 09:13 Fenofibrate (Tricor) 145 mg DAILY PO 10/27/19 09:00 10/31/19 09:09 Fluoxetine HCl (PROzac) 20 mg DAILY PO 10/27/19 09:00 10/29/19 09:29 DC 10/29/19 08:06 Gabapentin (Neurontin) 100 mg TID PO 10/29/19 09:00 10/31/19 11:46 DC 10/31/19 09:12 Gabapentin (Neurontin) 200 mg TID PO 10/31/19 16:00 Glucagon (Glucagon) 1 mg ASDIRECTED PRN SC SEE LABEL COMMENTS 10/26/19 14:00 Glucose (Glucose) 16 GM ASDIRECTED PRN PO SEE LABEL COMMENTS 10/26/19 14:00 Home Med (Med Rec Complete!) ASDIRECTED XX 10/26/19 15:45 10/26/19 15:51 DC Hydralazine HCl (Apresoline) 25 mg TID PO 10/28/19 09:00 10/31/19 09:10 Insulin Detemir (Levemir Insulin) 5 units QHS SC 10/26/19 21:00 10/27/19 09:52 DC 10/26/19 21:59 Insulin Detemir (Levemir Insulin) 8 units QHS SC 10/27/19 21:00 10/30/19 21:20 Insulin Human Lispro (HumaLOG INSULIN) SEE PROTOCOL TABLE AC SC 10/26/19 17:30 10/31/19 13:15 Insulin Human Lispro (HumaLOG INSULIN) SEE PROTOCOL TABLE QHS OR 10/26/19 21:00 Magnesium Hydroxide (Milk Of Magnesia) 30 ml DAILYPRN PRN PO CONSTIPATION 10/26/19 14:00 Magnesium Oxide (Mag-Ox) 400 mg DAILY PO 10/27/19 09:00 10/31/19 09:11 Metoprolol Tartrate (Lopressor) 25 mg BID PO 10/26/19 21:00 10/28/19 09:40 DC 10/28/19 07:23 Metoprolol Tartrate (Lopressor) 50 mg BID PO 10/28/19 21:00 10/31/19 09:12 Nicotine (Nicoderm Cq 14mg) 1 patch DAILY TD 10/26/19 09:00 10/31/19 09:09 Nitroglycerin (Nitrostat (1/ 150)) 0.4 mg Q5MP PRN SL CHEST PAIN 10/27/19 13:30 10/27/19 15:57 Ondansetron HCl (ZOFRAN INJection) 4 mg Q8HP PRN IV NAUSEA OR VOMITING 10/28/19 10:45 Ondansetron HCl (Zofran Odt) 4 mg Q6HP PRN PO NAUSEA OR VOMITING 10/27/19 13:30 10/29/19 07:10 Pantoprazole Sodium (Protonix) 40 mg DAILY PO 10/27/19 09:00 10/31/19 09:09 Senna (Senokot) 1 tab QHS PO 10/26/19 21:00 10/28/19 21:48 Tamsulosin HCl (Flomax) 0.4 mg DAILY PO 10/27/19 09:00 10/31/19 09:09 Tramadol HCl (Ultram) 25 mg Q6H PRN PO SEVERE HEADACHE 10/31/19 11:15 Tramadol HCl (Ultram) 50 mg Q4H PRN PO SEVERE HEADACHE 10/28/19 09:45 10/31/19 11:15 DC 10/30/19 12:32 Tramadol HCl (Ultram) 50 mg Q8H PRN PO SEVERE HEADACHE 10/27/19 12:30 10/28/19 09:40 DC 10/28/19 01:36 Trazodone HCl (Desyrel) 25 mg QHS PO 10/26/19 21:00 10/31/19 11:46 DC 10/30/19 21:23 Trazodone HCl (Desyrel) 50 mg QHS PO 10/31/19 21:00 TERRANCE PULIDO MD Oct 31, 2019 15:04
[2019-10-31 20:00] VITALS: BP 134/78
[2019-10-31] MEDS: ATORVASTATIN 20 MG TAB PO SCH (20:30)
[2019-10-31] MEDS: traZODone 50 MG TAB PO SCH (20:31)
[2019-10-31] MEDS: LEVEMIR (INSULIN DETEMIR) 1 UNITS/0.01ML SC SCH (20:32)
[2019-10-31] MEDS: SENNA 8.6 MG TAB (SENOKOT) PO SCH (20:32)
[2019-11-01 06:00] VITALS: BP 133/67
[2019-11-01] MEDS: IPRATROPIUM 0.5MG/ALBUTEROL 2.5MG INH SOL UD 3ML (DUONEB)(J7620) NEB SCH ×3 (07:14→20:08)
[2019-11-01] MEDS: HumaLOG INSULIN (NovoLOG) PER UNIT SC SCH ×4 (07:32→20:01)
[2019-11-01] MEDS: GABAPENTIN 100 MG CAP PO SCH ×3 (07:33→21:09)
[2019-11-01] MEDS: ACETAMINOPHEN TAB 650MG DOSE (2X325MG) PO SCH ×3 (07:34→21:09)
[2019-11-01] MEDS: DOCUSATE SODIUM 100 MG CAP PO SCH ×2 (07:34→21:00)
[2019-11-01] MEDS: MAGNESIUM OXIDE 400 MG TAB (MAG-OX) PO SCH (07:34)
[2019-11-01] MEDS: DULoxetine 30 MG CAP (CYMBALTA) PO SCH (07:34)
[2019-11-01] MEDS: PANTOPRAZOLE 40MG TAB (PROTONIX) PO SCH (07:35)
[2019-11-01] MEDS: TAMSULOSIN 0.4 MG CAP PO SCH (07:35)
[2019-11-01] MEDS: **hydrALAZINE HCL** 25 MG TAB PO SCH ×3 (07:35→21:10)
[2019-11-01] MEDS: ASPIRIN 81 MG ENTERIC TAB PO SCH (07:35)
[2019-11-01] MEDS: METOPROLOL TART 50 MG TAB PO SCH ×2 (07:35→21:10)
[2019-11-01] MEDS: FENOFIBRATE 145 MG TAB (TRICOR) PO SCH (07:35)
[2019-11-01] MEDS: ENOXAPARIN 40 MG/0.4 ML SYRINGE (J1650) SC SCH (07:36)
[2019-11-01] MEDS: NICOTINE 14 MG/24 HR TRANSDERMAL TD SCH (07:36)
[2019-11-01 08:04] LABS: HEMATOCRIT 44.3 % (42.0-52.0); HEMOGLOBIN 15.3 g/dl (13.5-17.5); MEAN CORPUSCULAR HEMOGLOBIN 30.2 pg (27.0-33.0); MEAN CORPUSCULAR HGB CONC 34.5 g/dl (32.0-36.5); MEAN CORPUSCULAR VOLUME 87.5 fl (80.0-96.0); PLATELET COUNT, AUTOMATED 191 10^3/uL (150-450); RED BLOOD COUNT 5.06 10^6/uL (4.30-6.10); WHITE BLOOD COUNT 6.2 10^3/uL (4.0-10.0)
[2019-11-01 08:27] LABS: BLOOD UREA NITROGEN 17 MG/DL (7-18); CALCIUM LEVEL 8.7 MG/DL (8.5-10.1); CARBON DIOXIDE LEVEL 30 MEQ/L (21-32); CHLORIDE LEVEL 104 MEQ/L (98-107); CREATININE FOR GFR 0.83 MG/DL (0.70-1.30); GLOMERULAR FILTRATION RATE > 60.0 (>60); GLUCOSE, FASTING 164 MG/DL (70-100); POTASSIUM SERUM 4.4 MEQ/L (3.5-5.1); SODIUM LEVEL 139 MEQ/L (136-145)
[2019-11-01] MEDS: REMEDY PHYTOPLEX Z-GUARD PASTE 113GM TUBE (FROM STOREROOM PRODUCT) TOP SCH ×3 (09:00→21:00)
[2019-11-01 14:00] VITALS: BP 133/60
[2019-11-01 15:47] VITALS: BP 119/56
--- NOTE | 2019-11-01 17:49 | IPNPDOC ---
PM&R Progress Note DATE OF SERVICE: Nov 01, 2019 Digital Communications Manager Progress Note Subjective: Patient reports he is feeling well, but that he is having difficulty coordinating his left leg to move because his left arm starts to move instead. REVIEW OF SYSTEMS: The following is a completed review of systems and has been reviewed. Review of systems otherwise unremarkable. PAIN: Patient self reports no pain EYES: No recent vision changes EARS, NOSE, & THROAT: +dysphagia CARDIOVASCULAR: Denies chest pain or palpitations PULMONARY: Denies shortness of breath GASTROINTESTINAL: Denies constipation/diarrhea GENITOURINARY: denies dysuria MUSCULOSKELETAL: left sided weakness NEUROLOGICAL:left sided paresis HEMATOLOGICAL: denies easy bruising SKIN:scattered shiny erythematous and papular lesions PSYCHIATRIC: Unremarkable All other review of systems found to be negative. PHYSICAL EXAMINATION: VITAL SIGNS: Please see below. GENERAL: Pleasant and cooperative. No acute distress. HEENT: PERRL. Extraocular movements intact. Clear conjunctiva CARDIOVASCULAR: Regular rate and rhythm. No murmurs, rubs, or gallops LUNGS: Clear to auscultation bilaterally. no wheezes. No rhonchi ABDOMEN: Soft, nontender, nondistended. Positive bowel sounds. Normal active bowel sounds NEUROLOGICAL: Alert and oriented times three. Cranial nerves II through XII g rossly intact. decreased sensation to light touch on LUE and LLE with left sided inattention EXTREMITIES: 5\5 strength right upper extremities. Left 3/5 elbow flexors, 2/5 elbow extensors, 3/5 wrist extension, paper handler 2/5 5\5 strength right lower extremity. 3/5 left hip flexors, 4/5 knee extensors/a nkle DF/EHL. PF SKIN: sacral fold with healed incision, left elbow effusion, bilat anterior shins with shiny erythematous plaques with yellow pigmented papules, scattered papular lesions ASSESSMENT:44-year-old M with past medical history of DM who presents status post right MCA territory infarct PLAN: 1. 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 Neuro: s/p right MCA infarct having received tpa with left sided paresis and neglect -c/u ASA and statin for secondary stroke prevention, BP control -prozac for motor recovery -patient reporting right sided headache, suspect nicotine and caffeine withdrawal as patient reports he had >10 cups of coffee a day, headaches improving since initiation of Cymbalta and gabapentin over the weekend -CTH on 10-27-19 negative for new infarct, no new deficit on exam 3. Cardiac: hx of HTN-c/u metoprolol and hydralazine, c/u monitor-medicine consulted to assist in management -HLD with hypertriglyceridemia with scattered Xanthoma lesions-c/u statin and Tricor 4. resp: encourage incentive spirometry, monitor for infection -c/u duonebs 5. Endo: pmh DM c/u Levemir and ISS, adjust prn 6. : with with urinary retention at [facility] started on Flomax, will c/u- monitor PVRs, voiding well 7. DVT ppx: Lovenox and TEDs,admission dopplers negative 8. GI ppx: protonix 9. Pain: patient with right sided headaches that have resolved, c/u Cymbalta and gabapentin dosing, tramadol prn (patient not taking) 10. Psych: trazodone 50mg qHS 11. Dispo: 11-22-19 to home, progressing towards goals Allergies Coded Allergies: lactose (Verified Adverse Reaction, Mild, GI UPSET, 10/26/19) Vital Signs Vital Signs Date Time Temp Pulse Resp B/P (MAP) Pulse Ox O2 Delivery O2 Flow Rate FiO2 11/01/19 15:47 119/56 (77) 11/01/19 14:00 98.0 80 18 94 Room Air Laboratory Data CBC/BMP Laboratory Tests 11/01/19 07:42 Labs 24H Laboratory Tests 2 10/31/19 19:52: Bedside Glucose (Misc Panel) 195H 11/01/19 05:36: Bedside Glucose (Misc Panel) 162H 11/01/19 07:42: Nucleated Red Blood Cells % (auto) 0.0, Anion Gap 5L, Glomerular Filtration Rate > 60.0, Calcium Level 8.7 11/01/19 11:31: Bedside Glucose (Misc Panel) 292H 11/01/19 16:45: Bedside Glucose (Misc Panel) 187H Current Medications Current Medications Current Medications Medications (Trade) Dose Ordered Sig/Anthony Route PRN Reason Start Time Stop Time Status Last Admin Dose Admin Acetaminophen (Tylenol Tab) 650 mg Q4HP PRN PO fever/MILD PAIN (PS 1-4) 10/26/19 14:00 10/26/19 17:07 DC Acetaminophen (Tylenol Tab) 650 mg TID PO 10/26/19 16:00 11/01/19 15:43 Acetaminophen/ Butalbital/ Caffeine (Fioricet) 1 ea Q4HP PRN PO HEADACHE 10/26/19 17:15 10/29/19 06:00 Albuterol/ Ipratropium (Duoneb (Ipr 0.5mg/Alb 2.5mg)) 3 ml RTID NEB 10/26/19 20:00 11/01/19 13:19 Aspirin (Aspirin) 325 mg STAT STAT PO 10/27/19 13:16 10/27/19 13:21 DC 10/27/19 13:26 Aspirin (Ecotrin) 81 mg DAILY PO 10/27/19 09:00 11/01/19 07:35 Atorvastatin Calcium (Lipitor) 80 mg QHS PO 10/27/19 21:00 10/31/19 20:30 Bisacodyl (Dulcolax Suppository) 10 mg DAILYPRN PRN SD BOWEL CARE/CONSTIPATION 10/27/19 10:45 Dextrose (Dextrose 50%) 25 ml ASDIRECTED PRN IV SEE LABEL COMMENTS 10/26/19 14:00 Docusate Sodium (Colace) 100 mg BID PO 10/26/19 21:00 11/01/19 07:34 Duloxetine HCl (Cymbalta) 30 mg DAILY PO 10/29/19 09:00 11/01/19 07:34 Duloxetine HCl (Cymbalta) 30 mg DAILY PO 10/30/19 09:00 10/29/19 10:05 DC Enoxaparin Sodium (Lovenox) 40 mg DAILY SC 10/27/19 09:00 11/01/19 07:36 Fenofibrate (Tricor) 145 mg DAILY PO 10/27/19 09:00 11/01/19 07:35 Fluoxetine HCl (PROzac) 20 mg DAILY PO 10/27/19 09:00 10/29/19 09:29 DC 10/29/19 08:06 Gabapentin (Neurontin) 100 mg TID PO 10/29/19 09:00 10/31/19 11:46 DC 10/31/19 09:12 Gabapentin (Neurontin) 200 mg TID PO 10/31/19 16:00 11/01/19 15:43 Glucagon (Glucagon) 1 mg ASDIRECTED PRN SC SEE LABEL COMMENTS 10/26/19 14:00 Glucose (Glucose) 16 GM ASDIRECTED PRN PO SEE LABEL COMMENTS 10/26/19 14:00 Home Med (Med Rec Complete!) ASDIRECTED XX 10/26/19 15:45 10/26/19 15:51 DC Hydralazine HCl (Apresoline) 25 mg TID PO 10/28/19 09:00 11/01/19 15:43 Insulin Detemir (Levemir Insulin) 5 units QHS SC 10/26/19 21:00 10/27/19 09:52 DC 10/26/19 21:59 Insulin Detemir (Levemir Insulin) 8 units QHS SC 10/27/19 21:00 10/31/19 20:32 Insulin Human Lispro (HumaLOG INSULIN) SEE PROTOCOL TABLE AC SC 10/26/19 17:30 11/01/19 16:59 Insulin Human Lispro (HumaLOG INSULIN) SEE PROTOCOL TABLE QHS SC 10/26/19 21:00 Magnesium Hydroxide (Milk Of Magnesia) 30 ml DAILYPRN PRN PO CONSTIPATION 10/26/19 14:00 Magnesium Oxide (Mag-Ox) 400 mg DAILY PO 10/27/19 09:00 11/01/19 07:34 Metoprolol Tartrate (Lopressor) 25 mg BID PO 10/26/19 21:00 10/28/19 09:40 DC 10/28/19 07:23 Metoprolol Tartrate (Lopressor) 50 mg BID PO 10/28/19 21:00 11/01/19 07:35 Nicotine (Nicoderm Cq 14mg) 1 patch DAILY TD 10/26/19 09:00 11/01/19 07:36 Nitroglycerin (Nitrostat (1/ 150)) 0.4 mg Q5MP PRN SL CHEST PAIN 10/27/19 13:30 10/27/19 15:57 Ondansetron HCl (ZOFRAN INJection) 4 mg Q8HP PRN IV NAUSEA OR VOMITING 10/28/19 10:45 Ondansetron HCl (Zofran Odt) 4 mg Q6HP PRN PO NAUSEA OR VOMITING 10/27/19 13:30 10/29/19 07:10 Pantoprazole Sodium (Protonix) 40 mg DAILY PO 10/27/19 09:00 11/01/19 07:35 Senna (Senokot) 1 tab QHS PO 10/26/19 21:00 10/28/19 21:48 Tamsulosin HCl (Flomax) 0.4 mg DAILY PO 10/27/19 09:00 11/01/19 07:35 Tramadol HCl (Ultram) 25 mg Q6H PRN PO SEVERE HEADACHE 10/31/19 11:15 Tramadol HCl (Ultram) 50 mg Q4H PRN PO SEVERE HEADACHE 10/28/19 09:45 10/31/19 11:15 DC 10/30/19 12:32 Tramadol HCl (Ultram) 50 mg Q8H PRN PO SEVERE HEADACHE 10/27/19 12:30 10/28/19 09:40 DC 10/28/19 01:36 Trazodone HCl (Desyrel) 25 mg QHS PO 10/26/19 21:00 10/31/19 11:46 DC 10/30/19 21:23 Trazodone HCl (Desyrel) 50 mg QHS PO 10/31/19 21:00 10/31/19 20:31 TERRANCE PULIDO MD Nov 01, 2019 17:49
[2019-11-01 20:00] VITALS: BP 132/85
[2019-11-01] MEDS: SENNA 8.6 MG TAB (SENOKOT) PO SCH (21:00)
[2019-11-01] MEDS: LEVEMIR (INSULIN DETEMIR) 1 UNITS/0.01ML SC SCH (21:09)
[2019-11-01] MEDS: ATORVASTATIN 20 MG TAB PO SCH (21:09)
[2019-11-01] MEDS: traZODone 50 MG TAB PO SCH (21:10)
[2019-11-02 06:00] VITALS: BP 137/74
[2019-11-02] MEDS: IPRATROPIUM 0.5MG/ALBUTEROL 2.5MG INH SOL UD 3ML (DUONEB)(J7620) NEB SCH ×3 (07:18→20:00)
[2019-11-02] MEDS: ASPIRIN 81 MG ENTERIC TAB PO SCH (08:26)
[2019-11-02] MEDS: METOPROLOL TART 50 MG TAB PO SCH ×2 (08:26→21:16)
[2019-11-02] MEDS: PANTOPRAZOLE 40MG TAB (PROTONIX) PO SCH (08:26)
[2019-11-02] MEDS: ENOXAPARIN 40 MG/0.4 ML SYRINGE (J1650) SC SCH (08:26)
[2019-11-02] MEDS: TAMSULOSIN 0.4 MG CAP PO SCH (08:26)
[2019-11-02] MEDS: **hydrALAZINE HCL** 25 MG TAB PO SCH ×3 (08:26→21:16)
[2019-11-02] MEDS: GABAPENTIN 100 MG CAP PO SCH ×3 (08:26→21:16)
[2019-11-02] MEDS: DULoxetine 30 MG CAP (CYMBALTA) PO SCH (08:27)
[2019-11-02] MEDS: ACETAMINOPHEN TAB 650MG DOSE (2X325MG) PO SCH ×3 (08:27→21:18)
[2019-11-02] MEDS: FENOFIBRATE 145 MG TAB (TRICOR) PO SCH (08:27)
[2019-11-02] MEDS: MAGNESIUM OXIDE 400 MG TAB (MAG-OX) PO SCH (08:27)
[2019-11-02] MEDS: DOCUSATE SODIUM 100 MG CAP PO SCH ×2 (08:27→21:00)
[2019-11-02] MEDS: NICOTINE 14 MG/24 HR TRANSDERMAL TD SCH (08:27)
[2019-11-02] MEDS: REMEDY PHYTOPLEX Z-GUARD PASTE 113GM TUBE (FROM STOREROOM PRODUCT) TOP SCH ×3 (08:28→21:00)
[2019-11-02] MEDS: HumaLOG INSULIN (NovoLOG) PER UNIT SC SCH ×4 (08:28→21:00)
[2019-11-02 14:00] VITALS: BP 136/66
[2019-11-02] MEDS: SENNA 8.6 MG TAB (SENOKOT) PO SCH (21:00)
[2019-11-02] MEDS: ATORVASTATIN 20 MG TAB PO SCH (21:16)
[2019-11-02] MEDS: traZODone 50 MG TAB PO SCH (21:16)
[2019-11-02] MEDS: LEVEMIR (INSULIN DETEMIR) 1 UNITS/0.01ML SC SCH (21:17)
[2019-11-02 21:20] VITALS: BP 133/60
[2019-11-03 05:53] VITALS: BP 129/62
[2019-11-03] MEDS: IPRATROPIUM 0.5MG/ALBUTEROL 2.5MG INH SOL UD 3ML (DUONEB)(J7620) NEB SCH ×3 (06:12→19:16)
[2019-11-03] MEDS: REMEDY PHYTOPLEX Z-GUARD PASTE 113GM TUBE (FROM STOREROOM PRODUCT) TOP SCH ×3 (09:00→21:00)
[2019-11-03] MEDS: DOCUSATE SODIUM 100 MG CAP PO SCH ×2 (09:00→21:00)
[2019-11-03] MEDS: HumaLOG INSULIN (NovoLOG) PER UNIT SC SCH ×4 (09:16→21:00)
[2019-11-03] MEDS: ACETAMINOPHEN TAB 650MG DOSE (2X325MG) PO SCH ×3 (09:17→22:05)
[2019-11-03] MEDS: GABAPENTIN 100 MG CAP PO SCH ×3 (09:17→22:04)
[2019-11-03] MEDS: PANTOPRAZOLE 40MG TAB (PROTONIX) PO SCH (09:18)
[2019-11-03] MEDS: METOPROLOL TART 50 MG TAB PO SCH ×2 (09:18→22:04)
[2019-11-03] MEDS: MAGNESIUM OXIDE 400 MG TAB (MAG-OX) PO SCH (09:18)
[2019-11-03] MEDS: TAMSULOSIN 0.4 MG CAP PO SCH (09:18)
[2019-11-03] MEDS: DULoxetine 30 MG CAP (CYMBALTA) PO SCH (09:18)
[2019-11-03] MEDS: ASPIRIN 81 MG ENTERIC TAB PO SCH (09:18)
[2019-11-03] MEDS: FENOFIBRATE 145 MG TAB (TRICOR) PO SCH (09:19)
[2019-11-03] MEDS: ENOXAPARIN 40 MG/0.4 ML SYRINGE (J1650) SC SCH (09:19)
[2019-11-03] MEDS: **hydrALAZINE HCL** 25 MG TAB PO SCH ×3 (09:19→22:04)
[2019-11-03] MEDS: NICOTINE 14 MG/24 HR TRANSDERMAL TD SCH (09:20)
--- NOTE | 2019-11-03 12:08 | IPNPDOC ---
Text Note Date of Service The patient was seen on 11/03/19. NOTE Pt was seen and examined this morning. Now new complaints No over night events. PHYSICAL EXAMINATION: GENERAL: No acute distress. HEENT: PERRL. Extraocular movements intact. Clear conjunctiva CARDIOVASCULAR: Regular rate and rhythm. No murmurs, rubs, or gallops LUNGS: Clear to auscultation bilaterally. mild exp wheezes rt mid lung field. No rhonchi ABDOMEN: Soft, nontender, nondistended. Positive bowel sounds. Normal active bowel sounds NEUROLOGICAL: Alert and oriented times three. Cranial nerves II through XII grossly intact. decreased sensation to touch on LUE and LLE with left sided neglect. 5\5 strength right upper extremities. Left 2/5 elbow flexors, 1/5 elbow extenors, 3/5 wrist extension, 5\5 strength right lower extremity. 2/5 left hip flexors. SKIN: bilateral anterior shins with shiny erythematous plaques with yellow pigmented papules, scattered papular lesions Assessment/Plan 44-year-old M with past medical history of DM, smoker and HTN who is admitted to the ARU s/p large right MCA CVA with L sided hemiparesis and dysphagia with ongoing intensive rehabilitation with course c/b severe post CVA headaches 1: Right MCA CVA s/p tPA with left sided paresis: continue ASA and statin. maintain adequate BP control to SBP<160. amlodipine 10 daily 2: Ongoing episodic severe headaches: Cont symptomatic meds PRN . 3: HTN: amlodipine 10 daily 4: HLD: lipitor 80mg, and fenofibrate 5: DM: continue home levemir and SSI, FSBG AC/HS and hypoglycemia protocol 6: Dysphagia: nectar thick per swallow eval recs Rehabilitation: per PMR recommendations DVT ppx: on TEDs and lovenox. VS,Fishbone, I+O VS, Fishbone, I+O Vital Signs Date Time Temp Pulse Resp B/P (MAP) Pulse Ox O2 Delivery O2 Flow Rate FiO2 11/03/19 09:18 88 132/60 11/03/19 05:53 97.0 18 95 Room Air I&O- Last 24 Hours up to 6 AM 11/03/19 06:00 Intake Total 1110 ml Output Total 400 ml Balance 710 ml GAMA FRANZ MD Nov 03, 2019 12:08
--- NOTE | 2019-11-03 12:37 | IPNPDOC ---
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 He reports he is pleased with his progress. REVIEW OF SYSTEMS: The following is a completed review of systems and has been reviewed. Review of systems otherwise unremarkable. PAIN: Patient self reports no pain EYES: No recent vision changes EARS, NOSE, & THROAT: +dysphagia CARDIOVASCULAR: Denies chest pain or palpitations PULMONARY: Denies shortness of breath GASTROINTESTINAL: Denies constipation/diarrhea GENITOURINARY: denies dysuria MUSCULOSKELETAL: left sided weakness NEUROLOGICAL:left sided paresis HEMATOLOGICAL: denies easy bruising SKIN:scattered shiny erythematous and papular lesions PSYCHIATRIC: Unremarkable All other review of systems found to be negative. PHYSICAL EXAMINATION: VITAL SIGNS: Please see below. GENERAL: Pleasant and cooperative. No acute distress. HEENT: PERRL. Extraocular movements intact. Clear conjunctiva CARDIOVASCULAR: Regular rate and rhythm. No murmurs, rubs, or gallops LUNGS: Clear to auscultation bilaterally. no wheezes. No rhonchi ABDOMEN: Soft, nontender, nondistended. Positive bowel sounds. Normal active belinda wel sounds NEUROLOGICAL: Alert and oriented times three. Cranial nerves II through XII grossly intact. decreased sensation to light touch on LUE and LLE with left sided inattention EXTREMITIES: 5\5 strength right upper extremities. Left 3/5 elbow flexors, 2/5 elbow extensors, 3/5 wrist extension, health care recruiter 2/5 5\5 strength right lower extremity. 3/5 left hip flexors, 4/5 knee extenso rs/ankle DF/EHL. PF SKIN: sacral fold with healed incision, left elbow effusion, bilat anterior shins with shiny erythematous plaques with yellow pigmented papules, scattered papular lesions ASSESSMENT:44-year-old M with past medical history of DM who presents status post right MCA territory infarct PLAN: 1. Rehab- PT/OT advance gait and ADL training, dynamic balance training, strengthen/stretch/maintain ROM all 4 limbs- able to advance his left leg in PT -STUMP SHOOTER evaluate for of and dysphagia- on level 2 and upgraded to thins 2. Neuro: s/p right MCA infarct having received tpa with left sided paresis and neglect -c/u ASA and statin for secondary stroke prevention, BP control -prozac for motor recovery -patient reporting right sided headache, suspect nicotine and caffeine withdrawal as patient reports he had >10 cups of coffee a day, headaches improving since initiation of Cymbalta and gabapentin over the weekend -CTH on 10-27-19 negative for new infarct, no new deficit on exam 3. Cardiac: hx of HTN-c/u metoprolol and hydralazine, c/u monitor-medicine consulted to assist in management -HLD with hypertriglyceridemia with scattered Xanthoma lesions-c/u statin and Tricor 4. resp: encourage incentive spirometry, monitor for infection -c/u duonebs 5. Endo: pmh DM c/u Levemir and ISS, adjust prn 6. : with with urinary retention at [facility] started on Flomax, will c/u- monitor PVRs, voiding well 7. DVT ppx: Lovenox and TEDs,admission dopplers negative- 8. GI ppx: protonix 9. Pain: patient with right sided headaches that have resolved, c/u Cymbalta and gabapentin dosing, tramadol prn (patient not taking) 10. Psych: trazodone 50mg qHS 11. Dispo: 11-22-19 to home, progressing towards goals Allergies Coded Allergies: lactose (Verified Adverse Reaction, Mild, GI UPSET, 10/26/19) Vital Signs Vital Signs Date Time Temp Pulse Resp B/P (MAP) Pulse Ox O2 Delivery O2 Flow Rate FiO2 11/03/19 09:18 88 132/60 11/03/19 05:53 97.0 18 95 Room Air Laboratory Data Labs 24H Laboratory Tests 2 11/02/19 16:51: Bedside Glucose (Misc Panel) 163H 11/02/19 20:40: Bedside Glucose (Misc Panel) 209H 11/03/19 06:07: Bedside Glucose (Misc Panel) 197H 11/03/19 11:47: Bedside Glucose (Misc Panel) 165H Current Medications Current Medications Current Medications Medications (Trade) Dose Ordered Sig/Anthony Route PRN Reason Start Time Stop Time Status Last Admin Dose Admin Acetaminophen (Tylenol Tab) 650 mg Q4HP PRN PO fever/MILD PAIN (PS 1-4) 10/26/19 14:00 10/26/19 17:07 DC Acetaminophen (Tylenol Tab) 650 mg TID PO 10/26/19 16:00 11/03/19 09:17 Acetaminophen/ Butalbital/ Caffeine (Fioricet) 1 ea Q4HP PRN PO HEADACHE 10/26/19 17:15 10/29/19 06:00 Albuterol/ Ipratropium (Duoneb (Ipr 0.5mg/Alb 2.5mg)) 3 ml RTID NEB 10/26/19 20:00 11/03/19 06:12 Aspirin (Aspirin) 325 mg STAT STAT PO 10/27/19 13:16 10/27/19 13:21 DC 10/27/19 13:26 Aspirin (Ecotrin) 81 mg DAILY PO 10/27/19 09:00 11/03/19 09:18 Atorvastatin Calcium (Lipitor) 80 mg QHS PO 10/27/19 21:00 11/02/19 21:16 Bisacodyl (Dulcolax Suppository) 10 mg DAILYPRN PRN [place] BOWEL CARE/CONSTIPATION 10/27/19 10:45 Dextrose (Dextrose 50%) 25 ml ASDIRECTED PRN IV SEE LABEL COMMENTS 10/26/19 14:00 Docusate Sodium (Colace) 100 mg BID PO 10/26/19 21:00 11/01/19 07:34 Duloxetine HCl (Cymbalta) 30 mg DAILY PO 10/29/19 09:00 11/03/19 09:18 Duloxetine HCl (Cymbalta) 30 mg DAILY PO 10/30/19 09:00 10/29/19 10:05 DC Enoxaparin Sodium (Lovenox) 40 mg DAILY SC 10/27/19 09:00 11/03/19 09:19 Fenofibrate (Tricor) 145 mg DAILY PO 10/27/19 09:00 11/03/19 09:19 Fluoxetine HCl (PROzac) 20 mg DAILY PO 10/27/19 09:00 10/29/19 09:29 DC 10/29/19 08:06 Gabapentin (Neurontin) 100 mg TID PO 10/29/19 09:00 10/31/19 11:46 DC 10/31/19 09:12 Gabapentin (Neurontin) 200 mg TID PO 10/31/19 16:00 11/03/19 09:17 Glucagon (Glucagon) 1 mg ASDIRECTED PRN SC SEE LABEL COMMENTS 10/26/19 14:00 Glucose (Glucose) 16 GM ASDIRECTED PRN PO SEE LABEL COMMENTS 10/26/19 14:00 Home Med (Med Rec Complete!) ASDIRECTED XX 10/26/19 15:45 10/26/19 15:51 DC Hydralazine HCl (Apresoline) 25 mg TID PO 10/28/19 09:00 11/03/19 09:19 Insulin Detemir (Levemir Insulin) 5 units QHS SC 10/26/19 21:00 10/27/19 09:52 DC 10/26/19 21:59 Insulin Detemir (Levemir Insulin) 8 units QHS SC 10/27/19 21:00 11/02/19 10:45 DC 11/01/19 21:09 Insulin Detemir (Levemir Insulin) 10 units QHS SC 11/02/19 21:00 11/02/19 21:17 Insulin Human Lispro (HumaLOG INSULIN) SEE PROTOCOL TABLE AC SC 10/26/19 17:30 11/03/19 12:15 Insulin Human Lispro (HumaLOG INSULIN) SEE PROTOCOL TABLE QHS SC 10/26/19 21:00 Magnesium Hydroxide (Milk Of Magnesia) 30 ml DAILYPRN PRN PO CONSTIPATION 10/26/19 14:00 Magnesium Oxide (Mag-Ox) 400 mg DAILY PO 10/27/19 09:00 11/03/19 09:18 Metoprolol Tartrate (Lopressor) 25 mg BID PO 10/26/19 21:00 10/28/19 09:40 DC 10/28/19 07:23 Metoprolol Tartrate (Lopressor) 50 mg BID PO 10/28/19 21:00 11/03/19 09:18 Miscellaneous (Unresolved Clarification Entry) SEE LABEL COMMENTS DAILY XX 11/02/19 09:00 Nicotine (Nicoderm Cq 14mg) 1 patch DAILY TD 10/26/19 09:00 11/03/19 09:20 Nitroglycerin (Nitrostat (1/ 150)) 0.4 mg Q5MP PRN SL CHEST PAIN 10/27/19 13:30 10/27/19 15:57 Ondansetron HCl (ZOFRAN INJection) 4 mg Q8HP PRN IV NAUSEA OR VOMITING 10/28/19 10:45 Ondansetron HCl (Zofran Odt) 4 mg Q6HP PRN PO NAUSEA OR VOMITING 10/27/19 13:30 10/29/19 07:10 Pantoprazole Sodium (Protonix) 40 mg DAILY PO 10/27/19 09:00 11/03/19 09:18 Senna (Senokot) 1 tab QHS PO 10/26/19 21:00 10/28/19 21:48 Tamsulosin HCl (Flomax) 0.4 mg DAILY PO 10/27/19 09:00 11/03/19 09:18 Tramadol HCl (Ultram) 25 mg Q6H PRN PO SEVERE HEADACHE 10/31/19 11:15 Tramadol HCl (Ultram) 50 mg Q4H PRN PO SEVERE HEADACHE 10/28/19 09:45 10/31/19 11:15 DC 10/30/19 12:32 Tramadol HCl (Ultram) 50 mg Q8H PRN PO SEVERE HEADACHE 10/27/19 12:30 10/28/19 09:40 DC 10/28/19 01:36 Trazodone HCl (Desyrel) 25 mg QHS PO 10/26/19 21:00 10/31/19 11:46 DC 10/30/19 21:23 Trazodone HCl (Desyrel) 50 mg QHS PO 10/31/19 21:00 11/02/19 21:16 TERRANCE PULIDO MD Nov 03, 2019 12:37
--- NOTE | 2019-11-03 12:45 | IPNPDOC ---
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 He denies fevers or chills. REVIEW OF SYSTEMS: The following is a completed review of systems and has been reviewed. Review of systems otherwise unremarkable. PAIN: Patient self reports no pain EYES: No recent vision changes EARS, NOSE, & THROAT: +dysphagia CARDIOVASCULAR: Denies chest pain or palpitations PULMONARY: Denies shortness of breath GASTROINTESTINAL: Denies constipation/diarrhea GENITOURINARY: denies dysuria MUSCULOSKELETAL: left sided weakness NEUROLOGICAL:left sided paresis HEMATOLOGICAL: denies easy bruising SKIN:scattered shiny erythematous and papular lesions PSYCHIATRIC: Unremarkable All other review of systems found to be negative. PHYSICAL EXAMINATION: VITAL SIGNS: Please see below. GENERAL: Pleasant and cooperative. No acute distress. HEENT: PERRL. Extraocular movements intact. Clear conjunctiva CARDIOVASCULAR: Regular rate and rhythm. No murmurs, rubs, or gallops LUNGS: Clear to auscultation bilaterally. no wheezes. No rhonchi ABDOMEN: Soft, nontender, nondistended. Positive bowel sounds. Normal active bowel sounds NEUROLOGICAL: Alert and oriented times three. Cranial nerves II through XII grossly intact. decreased sensation to light touch on LUE and LLE with left sided inattention EXTREMITIES: 5\5 strength right upper extremities. Left 3/5 elbow flexors, 2/5 elbow extensors, 3/5 wrist extension, esthetician/spa coordinator 2/5 5\5 strength right lower extremity. 3/5 left hip flexors, 4/5 knee extensors/ankle DF/EHL. PF SKIN: sacral fold with healed incision, left elbow effusion, bilat anterior shins with shiny erythematous plaques with yellow pigmented papules, scattered papular lesions ASSESSMENT:44-year-old M with past medical history of DM who presents status p ost right MCA territory infarct PLAN: 1. 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 Neuro: s/p right MCA infarct having received tpa with left sided paresis and neglect -c/u ASA and statin for secondary stroke prevention, BP control -prozac for motor recovery -patient reporting right sided headache, suspect nicotine and caffeine w ithdrawal as patient reports he had >10 cups of coffee a day, headaches improving since initiation of Cymbalta and gabapentin -CTH on 10-27-19 negative for new infarct, no new deficit on exam 3. Cardiac: hx of HTN-c/u metoprolol and hydralazine, c/u monitor-medicine consulted to assist in management -HLD with hypertriglyceridemia with scattered Xanthoma lesions-c/u statin and Tricor 4. resp: encourage incentive spirometry, monitor for infection -c/u duonebs 5. Endo: pmh DM c/u Levemir and ISS, adjust prn 6. : with with urinary retention at [facility] started on Flomax, will c/u- monitor PVRs, voiding well 7. DVT ppx: Lovenox and TEDs, dopplers negative x2 8. GI ppx: protonix 9. Pain: patient with right sided headaches that have resolved, c/u Cymbalta and gabapentin dosing, tramadol (will d/c) 10. Psych: trazodone 50mg qHS 11. Dispo: 11-22-19 to home, progressing towards goals Allergies Coded Allergies: lactose (Verified Adverse Reaction, Mild, GI UPSET, 10/26/19) Vital Signs Vital Signs Date Time Temp Pulse Resp B/P (MAP) Pulse Ox O2 Delivery O2 Flow Rate FiO2 11/03/19 09:18 88 132/60 11/03/19 05:53 97.0 18 95 Room Air Laboratory Data Labs 24H Laboratory Tests 2 11/02/19 16:51: Bedside Glucose (Misc Panel) 163H 11/02/19 20:40: Bedside Glucose (Misc Panel) 209H 11/03/19 06:07: Bedside Glucose (Misc Panel) 197H 11/03/19 11:47: Bedside Glucose (Misc Panel) 165H Current Medications Current Medications Current Medications Medications (Trade) Dose Ordered Sig/Anthony Route PRN Reason Start Time Stop Time Status Last Admin Dose Admin Acetaminophen (Tylenol Tab) 650 mg Q4HP PRN PO fever/MILD PAIN (PS 1-4) 10/26/19 14:00 10/26/19 17:07 DC Acetaminophen (Tylenol Tab) 650 mg TID PO 2/19/20 16:00 11/03/19 09:17 Acetaminophen/ Butalbital/ Caffeine (Fioricet) 1 ea Q4HP PRN PO HEADACHE 10/26/19 17:15 10/29/19 06:00 Albuterol/ Ipratropium (Duoneb (Ipr 0.5mg/Alb 2.5mg)) 3 ml RTID NEB 10/26/19 20:00 11/03/19 06:12 Aspirin (Aspirin) 325 mg STAT STAT PO 10/27/19 13:16 10/27/19 13:21 DC 10/27/19 13:26 Aspirin (Ecotrin) 81 mg DAILY PO 10/27/19 09:00 11/03/19 09:18 Atorvastatin Calcium (Lipitor) 80 mg QHS PO 10/27/19 21:00 11/02/19 21:16 Bisacodyl (Dulcolax Suppository) 10 mg DAILYPRN PRN [place] BOWEL CARE/CONSTIPATION 10/27/19 10:45 Dextrose (Dextrose 50%) 25 ml ASDIRECTED PRN IV SEE LABEL COMMENTS 10/26/19 14:00 Docusate Sodium (Colace) 100 mg BID PO 10/26/19 21:00 11/01/19 07:34 Duloxetine HCl (Cymbalta) 30 mg DAILY PO 10/29/19 09:00 11/03/19 09:18 Duloxetine HCl (Cymbalta) 30 mg DAILY PO 10/30/19 09:00 10/29/19 10:05 DC Enoxaparin Sodium (Lovenox) 40 mg DAILY SC 10/27/19 09:00 11/03/19 09:19 Fenofibrate (Tricor) 145 mg DAILY PO 10/27/19 09:00 11/03/19 09:19 Fluoxetine HCl (PROzac) 20 mg DAILY PO 10/27/19 09:00 10/29/19 09:29 DC 10/29/19 08:06 Gabapentin (Neurontin) 100 mg TID PO 10/29/19 09:00 10/31/19 11:46 DC 10/31/19 09:12 Gabapentin (Neurontin) 200 mg TID PO 10/31/19 16:00 11/03/19 09:17 Glucagon (Glucagon) 1 mg ASDIRECTED PRN SC SEE LABEL COMMENTS 10/26/19 14:00 Glucose (Glucose) 16 GM ASDIRECTED PRN PO SEE LABEL COMMENTS 10/26/19 14:00 Home Med (Med Rec Complete!) ASDIRECTED XX 10/26/19 15:45 10/26/19 15:51 DC Hydralazine HCl (Apresoline) 25 mg TID PO 10/28/19 09:00 11/03/19 09:19 Insulin Detemir (Levemir Insulin) 5 units QHS SC 10/26/19 21:00 10/27/19 09:52 DC 10/26/19 21:59 Insulin Detemir (Levemir Insulin) 8 units QHS SC 10/27/19 21:00 11/02/19 10:45 DC 11/01/19 21:09 Insulin Detemir (Levemir Insulin) 10 units QHS SC 11/02/19 21:00 11/02/19 21:17 Insulin Human Lispro (HumaLOG INSULIN) SEE PROTOCOL TABLE AC SC 10/26/19 17:30 11/03/19 12:15 Insulin Human Lispro (HumaLOG INSULIN) SEE PROTOCOL TABLE QHS SC 10/26/19 21:00 Magnesium Hydroxide (Milk Of Magnesia) 30 ml DAILYPRN PRN PO CONSTIPATION 10/26/19 14:00 Magnesium Oxide (Mag-Ox) 400 mg DAILY PO 10/27/19 09:00 11/03/19 09:18 Metoprolol Tartrate (Lopressor) 25 mg BID PO 10/26/19 21:00 10/28/19 09:40 DC 10/28/19 07:23 Metoprolol Tartrate (Lopressor) 50 mg BID PO 10/28/19 21:00 11/03/19 09:18 Miscellaneous (Unresolved Clarification Entry) SEE LABEL COMMENTS DAILY XX 11/02/19 09:00 Nicotine (Nicoderm Cq 14mg) 1 patch DAILY TD 10/26/19 09:00 11/03/19 09:20 Nitroglycerin (Nitrostat (1/ 150)) 0.4 mg Q5MP PRN SL CHEST PAIN 10/27/19 13:30 10/27/19 15:57 Ondansetron HCl (ZOFRAN INJection) 4 mg Q8HP PRN IV NAUSEA OR VOMITING 10/28/19 10:45 Ondansetron HCl (Zofran Odt) 4 mg Q6HP PRN PO NAUSEA OR VOMITING 10/27/19 13:30 10/29/19 07:10 Pantoprazole Sodium (Protonix) 40 mg DAILY PO 10/27/19 09:00 11/03/19 09:18 Senna (Senokot) 1 tab QHS PO 10/26/19 21:00 10/28/19 21:48 Tamsulosin HCl (Flomax) 0.4 mg DAILY PO 10/27/19 09:00 11/03/19 09:18 Tramadol HCl (Ultram) 25 mg Q6H PRN PO SEVERE HEADACHE 10/31/19 11:15 Tramadol HCl (Ultram) 50 mg Q4H PRN PO SEVERE HEADACHE 10/28/19 09:45 10/31/19 11:15 DC 10/30/19 12:32 Tramadol HCl (Ultram) 50 mg Q8H PRN PO SEVERE HEADACHE 10/27/19 12:30 10/28/19 09:40 DC 10/28/19 01:36 Trazodone HCl (Desyrel) 25 mg QHS PO 10/26/19 21:00 10/31/19 11:46 DC 10/30/19 21:23 Trazodone HCl (Desyrel) 50 mg QHS PO 10/31/19 21:00 11/02/19 21:16 TERRANCE PULIDO MD Nov 03, 2019 12:45
[2019-11-03 14:36] VITALS: BP 127/73
--- NOTE | 2019-11-03 15:27 | REP ---
Bilateral lower extremity deep vein duplex ultrasound: A comparison is 10/27/2019. The deep veins demonstrate normal compression, normal Doppler color flow and normal Doppler waveforms with respiration augmentation from the popliteal veins to the common femoral veins bilaterally. Impression: There is no deep vein thrombus in the right or left lower extremities. Electronically Signed by Philip Bryan MD 11/03/2019 03:19 P
[2019-11-03] MEDS: SENNA 8.6 MG TAB (SENOKOT) PO SCH (21:00)
[2019-11-03 21:53] VITALS: BP 159/77
[2019-11-03] MEDS: LEVEMIR (INSULIN DETEMIR) 1 UNITS/0.01ML SC SCH (22:03)
[2019-11-03] MEDS: traZODone 50 MG TAB PO SCH (22:04)
[2019-11-03] MEDS: ATORVASTATIN 20 MG TAB PO SCH (22:05)
[2019-11-04 05:44] VITALS: BP 135/70
[2019-11-04] MEDS: IPRATROPIUM 0.5MG/ALBUTEROL 2.5MG INH SOL UD 3ML (DUONEB)(J7620) NEB SCH ×3 (07:40→19:29)
[2019-11-04] MEDS: **hydrALAZINE HCL** 25 MG TAB PO SCH ×3 (08:31→20:54)
[2019-11-04] MEDS: HumaLOG INSULIN (NovoLOG) PER UNIT SC SCH ×4 (08:31→20:57)
[2019-11-04] MEDS: DULoxetine 30 MG CAP (CYMBALTA) PO SCH (08:32)
[2019-11-04] MEDS: TAMSULOSIN 0.4 MG CAP PO SCH (08:32)
[2019-11-04] MEDS: DOCUSATE SODIUM 100 MG CAP PO SCH (08:32)
[2019-11-04] MEDS: NICOTINE 14 MG/24 HR TRANSDERMAL TD SCH (08:32)
[2019-11-04] MEDS: GABAPENTIN 100 MG CAP PO SCH ×3 (08:32→20:53)
[2019-11-04] MEDS: METOPROLOL TART 50 MG TAB PO SCH ×2 (08:32→20:54)
[2019-11-04] MEDS: ACETAMINOPHEN TAB 650MG DOSE (2X325MG) PO SCH ×3 (08:32→20:55)
[2019-11-04] MEDS: ENOXAPARIN 40 MG/0.4 ML SYRINGE (J1650) SC SCH (08:32)
[2019-11-04] MEDS: ASPIRIN 81 MG ENTERIC TAB PO SCH (08:32)
[2019-11-04] MEDS: FENOFIBRATE 145 MG TAB (TRICOR) PO SCH (08:32)
[2019-11-04] MEDS: MAGNESIUM OXIDE 400 MG TAB (MAG-OX) PO SCH (08:32)
[2019-11-04] MEDS: PANTOPRAZOLE 40MG TAB (PROTONIX) PO SCH (08:32)
[2019-11-04] MEDS: REMEDY PHYTOPLEX Z-GUARD PASTE 113GM TUBE (FROM STOREROOM PRODUCT) TOP SCH ×3 (08:33→20:56)
[2019-11-04 08:49] LABS: HEMOGLOBIN 14.4 g/dl (13.5-17.5); MEAN CORPUSCULAR HEMOGLOBIN 30.4 pg (27.0-33.0); MEAN CORPUSCULAR HGB CONC 34.3 g/dl (32.0-36.5); MEAN CORPUSCULAR VOLUME 88.8 fl (80.0-96.0); PLATELET COUNT, AUTOMATED 206 10^3/uL (150-450); RED BLOOD COUNT 4.73 10^6/uL (4.30-6.10)
[2019-11-04 09:14] LABS: BLOOD UREA NITROGEN 16 MG/DL (7-18); CALCIUM LEVEL 8.2 MG/DL (8.5-10.1); CARBON DIOXIDE LEVEL 31 MEQ/L (21-32); CHLORIDE LEVEL 104 MEQ/L (98-107); CREATININE FOR GFR 0.92 MG/DL (0.70-1.30); GLOMERULAR FILTRATION RATE > 60.0 (>60); GLUCOSE, FASTING 236 MG/DL (70-100); POTASSIUM SERUM 4.4 MEQ/L (3.5-5.1); SODIUM LEVEL 139 MEQ/L (136-145)
--- NOTE | 2019-11-04 12:15 | IPNPDOC ---
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 REVIEW OF SYSTEMS: The following is a completed review of systems and has been reviewed. Review of systems otherwise unremarkable. PAIN: Patient self reports no pain EYES: No recent vision changes EARS, NOSE, & THROAT: +dysphagia CARDIOVASCULAR: Denies chest pain or palpitations PULMONARY: Denies shortness of breath GASTROINTESTINAL: Denies constipation/diarrhea GENITOURINARY: denies dysuria MUSCULOSKELETAL: left sided weakness NEUROLOGICAL:left sided paresis HEMATOLOGICAL: denies easy bruising SKIN:scattered shiny erythematous and papular lesions PSYCHIATRIC: Unremarkable All other review of systems found to be negative. PHYSICAL EXAMINATION: VITAL SIGNS: Please see below. GENERAL: Pleasant and cooperative. No acute distress. HEENT: PERRL. Extraocular movements intact. Clear conjunctiva CARDIOVASCULAR: Regular rate and rhythm. No murmurs, rubs, or gallops LUNGS: Clear to auscultation bilaterally. no wheezes. No rhonchi ABDOMEN: Soft, nontender, nondistended. Positive bowel sounds. Normal active bowel sounds NEUROLOGICAL: Alert and oriented times three. Cranial nerves II through XII grossly intact. decreased sensation to light touch on LUE and LLE with left sided inattention EXTREMITIES: 5\5 strength right upper extremities. Left 3/5 elbow flexors, 2/5 elbow extensors, 3/5 wrist extension, theatre manager 2/5 5\5 strength right lower extremity. 3/5 left hip flexors, 4/5 knee extensors/ankle DF/EHL. PF SKIN: sacral fold with healed incision, left elbow effusion, bilat anterior shins with shiny erythematous plaques with yellow pigmented papules, scattered papular lesions ASSESSMENT:44-year-old M with past medical history of DM who presents status post right MCA territory infarct PLAN: 1. 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 Neuro: s/p right MCA infarct having received tpa with left sided paresis and neglect -c/u ASA and statin for secondary stroke prevention, BP control -prozac for motor recovery -patient reporting right sided headache, suspect nicotine and caffeine withdrawal as patient reports he had >10 cups of coffee a day, headaches improving since initiation of Cymbalta and gabapentin -CTH on 10-27-19 negative for new infarct, no new deficit on exam 3. Cardiac: hx of HTN-c/u metoprolol and hydralazine, c/u monitor-medicine consulted to assist in management -HLD with hypertriglyceridemia with scattered Xanthoma lesions-c/u statin and Tricor 4. resp: encourage incentive spirometry, monitor for infection -c/u duonebs 5. Endo: pmh DM c/u Levemir and ISS, adjust prn 6. : with with urinary retention at [facility] started on Flomax, will c/u- monitor PVRs, voiding well 7. DVT ppx: Lovenox and TEDs, dopplers negative x2 8. GI ppx: will hold protonix, colace, senna as can all contribute to loose stools -Imodium prn loose stools 9. Pain: patient with right sided headaches that have resolved, c/u Cymbalta and gabapentin dosing, tramadol (will d/c) 10. Psych: trazodone 50mg qHS 11. Dispo: 11-22-19 to home, progressing towards goals Allergies Coded Allergies: lactose (Verified Adverse Reaction, Mild, GI UPSET, 10/26/19) Vital Signs Vital Signs Date Time Temp Pulse Resp B/P (MAP) Pulse Ox O2 Delivery O2 Flow Rate FiO2 11/04/19 08:32 91 111/59 11/04/19 05:44 97.0 18 93 Room Air Laboratory Data CBC/BMP Laboratory Tests 11/04/19 08:10 Labs 24H Laboratory Tests 2 11/03/19 17:01: Bedside Glucose (Misc Panel) 155H 11/03/19 20:01: Bedside Glucose (Misc Panel) 215H 11/04/19 05:50: Bedside Glucose (Misc Panel) 162H 11/04/19 08:10: Nucleated Red Blood Cells % (auto) 0.0, Anion Gap 4L, Glomerular Filtration Rate > 60.0, Calcium Level 8.2L 11/04/19 11:28: Bedside Glucose (Misc Panel) 184H Current Medications Current Medications Current Medications Medications (Trade) Dose Ordered Sig/Anthony Route PRN Reason Start Time Stop Time Status Last Admin Dose Admin Acetaminophen (Tylenol Tab) 650 mg Q4HP PRN PO fever/MILD PAIN (PS 1-4) 10/26/19 14:00 10/26/19 17:07 DC Acetaminophen (Tylenol Tab) 650 mg TID PO 10/26/19 16:00 11/04/19 08:32 Acetaminophen/ Butalbital/ Caffeine (Fioricet) 1 ea Q4HP PRN PO HEADACHE 10/26/19 17:15 10/29/19 06:00 Albuterol/ Ipratropium (Duoneb (Ipr 0.5mg/Alb 2.5mg)) 3 ml RTID NEB 10/26/19 20:00 11/04/19 07:40 Aspirin (Aspirin) 325 mg STAT STAT PO 10/27/19 13:16 10/27/19 13:21 DC 10/27/19 13:26 Aspirin (Ecotrin) 81 mg DAILY PO 10/27/19 09:00 11/04/19 08:32 Atorvastatin Calcium (Lipitor) 80 mg QHS PO 10/27/19 21:00 11/03/19 22:05 Bisacodyl (Dulcolax Suppository) 10 mg DAILYPRN PRN [place] BOWEL CARE/CONSTIPATION 10/27/19 10:45 Dextrose (Dextrose 50%) 25 ml ASDIRECTED PRN IV SEE LABEL COMMENTS 10/26/19 14:00 Docusate Sodium (Colace) 100 mg BID PO 10/26/19 21:00 11/01/19 07:34 Duloxetine HCl (Cymbalta) 30 mg DAILY PO 10/29/19 09:00 11/04/19 08:32 Duloxetine HCl (Cymbalta) 30 mg DAILY PO 10/30/19 09:00 10/29/19 10:05 DC Enoxaparin Sodium (Lovenox) 40 mg DAILY SC 10/27/19 09:00 11/04/19 08:32 Fenofibrate (Tricor) 145 mg DAILY PO 10/27/19 09:00 11/04/19 08:32 Fluoxetine HCl (PROzac) 20 mg DAILY PO 10/27/19 09:00 10/29/19 09:29 DC 10/29/19 08:06 Gabapentin (Neurontin) 100 mg TID PO 10/29/19 09:00 10/31/19 11:46 DC 10/31/19 09:12 Gabapentin (Neurontin) 200 mg TID PO 10/31/19 16:00 11/04/19 08:32 Glucagon (Glucagon) 1 mg ASDIRECTED PRN SC SEE LABEL COMMENTS 10/26/19 14:00 Glucose (Glucose) 16 GM ASDIRECTED PRN PO SEE LABEL COMMENTS 10/26/19 14:00 Home Med (Med Rec Complete!) ASDIRECTED XX 10/26/19 15:45 10/26/19 15:51 DC Hydralazine HCl (Apresoline) 25 mg TID PO 10/28/19 09:00 11/04/19 08:31 Insulin Detemir (Levemir Insulin) 5 units QHS SC 10/26/19 21:00 10/27/19 09:52 DC 10/26/19 21:59 Insulin Detemir (Levemir Insulin) 8 units QHS SC 10/27/19 21:00 11/02/19 10:45 DC 11/01/19 21:09 Insulin Detemir (Levemir Insulin) 10 units QHS SC 11/02/19 21:00 11/03/19 22:03 Insulin Human Lispro (HumaLOG INSULIN) SEE PROTOCOL TABLE AC SC 10/26/19 17:30 11/04/19 12:06 Insulin Human Lispro (HumaLOG INSULIN) SEE PROTOCOL TABLE QHS SC 10/26/19 21:00 Magnesium Hydroxide (Milk Of Magnesia) 30 ml DAILYPRN PRN PO CONSTIPATION 10/26/19 14:00 Magnesium Oxide (Mag-Ox) 400 mg DAILY PO 10/27/19 09:00 11/04/19 08:32 Metoprolol Tartrate (Lopressor) 25 mg BID PO 10/26/19 21:00 10/28/19 09:40 DC 10/28/19 07:23 Metoprolol Tartrate (Lopressor) 50 mg BID PO 10/28/19 21:00 11/04/19 08:32 Miscellaneous (Unresolved Clarification Entry) SEE LABEL COMMENTS DAILY XX 11/02/19 09:00 11/03/19 14:47 DC Nicotine (Nicoderm Cq 14mg) 1 patch DAILY TD 10/26/19 09:00 11/04/19 08:32 Nitroglycerin (Nitrostat (1/ 150)) 0.4 mg Q5MP PRN SL CHEST PAIN 10/27/19 13:30 10/27/19 15:57 Ondansetron HCl (ZOFRAN INJection) 4 mg Q8HP PRN IV NAUSEA OR VOMITING 10/28/19 10:45 Ondansetron HCl (Zofran Odt) 4 mg Q6HP PRN PO NAUSEA OR VOMITING 10/27/19 13:30 10/29/19 07:10 Pantoprazole Sodium (Protonix) 40 mg DAILY PO 10/27/19 09:00 11/04/19 08:32 Senna (Senokot) 1 tab QHS PO 10/26/19 21:00 10/28/19 21:48 Tamsulosin HCl (Flomax) 0.4 mg DAILY PO 10/27/19 09:00 11/04/19 08:32 Tramadol HCl (Ultram) 25 mg Q6H PRN PO SEVERE HEADACHE 10/31/19 11:15 Tramadol HCl (Ultram) 50 mg Q4H PRN PO SEVERE HEADACHE 10/28/19 09:45 10/31/19 11:15 DC 10/30/19 12:32 Tramadol HCl (Ultram) 50 mg Q8H PRN PO SEVERE HEADACHE 10/27/19 12:30 10/28/19 09:40 DC 10/28/19 01:36 Trazodone HCl (Desyrel) 25 mg QHS PO 10/26/19 21:00 10/31/19 11:46 DC 10/30/19 21:23 Trazodone HCl (Desyrel) 50 mg QHS PO 10/31/19 21:00 11/03/19 22:04 TERRANCE PULIDO MD Nov 04, 2019 12:15
[2019-11-04 14:00] VITALS: BP 129/72
[2019-11-04] MEDS: LEVEMIR (INSULIN DETEMIR) 1 UNITS/0.01ML SC SCH (20:53)
[2019-11-04] MEDS: ATORVASTATIN 20 MG TAB PO SCH (20:54)
[2019-11-04] MEDS: traZODone 50 MG TAB PO SCH (20:54)
[2019-11-04 21:00] VITALS: BP 160/75
[2019-11-05 06:00] VITALS: BP 135/67
[2019-11-05] MEDS: IPRATROPIUM 0.5MG/ALBUTEROL 2.5MG INH SOL UD 3ML (DUONEB)(J7620) NEB SCH ×3 (07:42→20:30)
[2019-11-05] MEDS: NICOTINE 14 MG/24 HR TRANSDERMAL TD SCH (08:57)
[2019-11-05] MEDS: DULoxetine 30 MG CAP (CYMBALTA) PO SCH (08:58)
[2019-11-05] MEDS: GABAPENTIN 100 MG CAP PO SCH ×3 (08:58→20:48)
[2019-11-05] MEDS: **hydrALAZINE HCL** 25 MG TAB PO SCH ×3 (08:58→20:49)
[2019-11-05] MEDS: FENOFIBRATE 145 MG TAB (TRICOR) PO SCH (08:58)
[2019-11-05] MEDS: ENOXAPARIN 40 MG/0.4 ML SYRINGE (J1650) SC SCH (08:58)
[2019-11-05] MEDS: ASPIRIN 81 MG ENTERIC TAB PO SCH (08:58)
[2019-11-05] MEDS: TAMSULOSIN 0.4 MG CAP PO SCH (08:58)
[2019-11-05] MEDS: ACETAMINOPHEN TAB 650MG DOSE (2X325MG) PO SCH ×3 (08:59→20:49)
[2019-11-05] MEDS: METOPROLOL TART 50 MG TAB PO SCH ×2 (08:59→20:48)
[2019-11-05] MEDS: REMEDY PHYTOPLEX Z-GUARD PASTE 113GM TUBE (FROM STOREROOM PRODUCT) TOP SCH ×3 (09:01→20:50)
[2019-11-05] MEDS: HumaLOG INSULIN (NovoLOG) PER UNIT SC SCH ×4 (09:01→20:50)
[2019-11-05 14:02] VITALS: BP 135/74
[2019-11-05 20:00] VITALS: BP 140/71
[2019-11-05] MEDS: traZODone 50 MG TAB PO SCH (20:48)
[2019-11-05] MEDS: ATORVASTATIN 20 MG TAB PO SCH (20:48)
[2019-11-05] MEDS: LEVEMIR (INSULIN DETEMIR) 1 UNITS/0.01ML SC SCH (20:50)
[2019-11-06 06:00] VITALS: BP 142/67
[2019-11-06] MEDS: IPRATROPIUM 0.5MG/ALBUTEROL 2.5MG INH SOL UD 3ML (DUONEB)(J7620) NEB SCH ×3 (07:24→20:06)
[2019-11-06] MEDS: GABAPENTIN 100 MG CAP PO SCH ×3 (07:43→21:11)
[2019-11-06] MEDS: ACETAMINOPHEN TAB 650MG DOSE (2X325MG) PO SCH ×3 (07:43→21:11)
[2019-11-06] MEDS: NICOTINE 14 MG/24 HR TRANSDERMAL TD SCH (07:43)
[2019-11-06] MEDS: ASPIRIN 81 MG ENTERIC TAB PO SCH (07:43)
[2019-11-06] MEDS: DULoxetine 30 MG CAP (CYMBALTA) PO SCH (07:43)
[2019-11-06] MEDS: TAMSULOSIN 0.4 MG CAP PO SCH (07:43)
[2019-11-06] MEDS: FENOFIBRATE 145 MG TAB (TRICOR) PO SCH (07:43)
[2019-11-06] MEDS: **hydrALAZINE HCL** 25 MG TAB PO SCH ×3 (07:44→21:10)
[2019-11-06] MEDS: ENOXAPARIN 40 MG/0.4 ML SYRINGE (J1650) SC SCH (07:44)
[2019-11-06] MEDS: METOPROLOL TART 50 MG TAB PO SCH ×2 (07:44→21:10)
[2019-11-06] MEDS: REMEDY PHYTOPLEX Z-GUARD PASTE 113GM TUBE (FROM STOREROOM PRODUCT) TOP SCH ×3 (07:45→21:00)
[2019-11-06] MEDS: HumaLOG INSULIN (NovoLOG) PER UNIT SC SCH ×4 (07:45→21:00)
[2019-11-06 14:30] VITALS: BP 138/74
[2019-11-06 21:09] VITALS: BP 134/71
[2019-11-06] MEDS: traZODone 50 MG TAB PO SCH (21:10)
[2019-11-06] MEDS: ATORVASTATIN 20 MG TAB PO SCH (21:10)
[2019-11-06] MEDS: LEVEMIR (INSULIN DETEMIR) 1 UNITS/0.01ML SC SCH (21:11)
[2019-11-07 06:34] LABS: HEMATOCRIT 40.9 % (42.0-52.0); MEAN CORPUSCULAR HEMOGLOBIN 29.9 pg (27.0-33.0); MEAN CORPUSCULAR HGB CONC 34.2 g/dl (32.0-36.5); MEAN CORPUSCULAR VOLUME 87.2 fl (80.0-96.0); PLATELET COUNT, AUTOMATED 225 10^3/uL (150-450); RED BLOOD COUNT 4.69 10^6/uL (4.30-6.10); WHITE BLOOD COUNT 5.4 10^3/uL (4.0-10.0)
[2019-11-07 06:44] VITALS: BP 122/61
[2019-11-07 06:56] LABS: BLOOD UREA NITROGEN 15 MG/DL (7-18); CALCIUM LEVEL 8.4 MG/DL (8.5-10.1); CARBON DIOXIDE LEVEL 32 MEQ/L (21-32); CHLORIDE LEVEL 106 MEQ/L (98-107); CREATININE FOR GFR 0.92 MG/DL (0.70-1.30); GLOMERULAR FILTRATION RATE > 60.0 (>60); GLUCOSE, FASTING 165 MG/DL (70-100); POTASSIUM SERUM 4.3 MEQ/L (3.5-5.1); SODIUM LEVEL 141 MEQ/L (136-145)
[2019-11-07] MEDS: FENOFIBRATE 145 MG TAB (TRICOR) PO SCH (07:45)
[2019-11-07] MEDS: DULoxetine 30 MG CAP (CYMBALTA) PO SCH (07:45)
[2019-11-07] MEDS: TAMSULOSIN 0.4 MG CAP PO SCH (07:46)
[2019-11-07] MEDS: ACETAMINOPHEN TAB 650MG DOSE (2X325MG) PO SCH ×3 (07:46→20:42)
[2019-11-07] MEDS: ASPIRIN 81 MG ENTERIC TAB PO SCH (07:46)
[2019-11-07] MEDS: **hydrALAZINE HCL** 25 MG TAB PO SCH ×3 (07:46→20:42)
[2019-11-07] MEDS: GABAPENTIN 100 MG CAP PO SCH ×3 (07:46→20:42)
[2019-11-07] MEDS: METOPROLOL TART 50 MG TAB PO SCH ×2 (07:46→20:42)
[2019-11-07] MEDS: NICOTINE 14 MG/24 HR TRANSDERMAL TD SCH (07:47)
[2019-11-07] MEDS: ENOXAPARIN 40 MG/0.4 ML SYRINGE (J1650) SC SCH (07:47)
[2019-11-07] MEDS: HumaLOG INSULIN (NovoLOG) PER UNIT SC SCH ×4 (07:48→20:10)
[2019-11-07] MEDS: IPRATROPIUM 0.5MG/ALBUTEROL 2.5MG INH SOL UD 3ML (DUONEB)(J7620) NEB SCH ×3 (08:00→20:55)
[2019-11-07] MEDS: REMEDY PHYTOPLEX Z-GUARD PASTE 113GM TUBE (FROM STOREROOM PRODUCT) TOP SCH ×3 (08:23→20:43)
[2019-11-07] MEDS ORDERED: LIDOCAINE 5% (LIDODERM) PATCH TD SCH (09:00)
[2019-11-07 14:00] VITALS: BP 132/65
--- NOTE | 2019-11-07 14:48 | IPNPDOC ---
PM&R Progress Note DATE OF SERVICE: Nov 07, 2019 Insurance Sales Specialist Progress Note Subjective: Patient reporting his loose stools have greatly improved since stopping protonix and bowel meds. He reports his left posterior thigh aches when it is extended, he denies groin or buttock pain. REVIEW OF SYSTEMS: The following is a completed review of systems and has been reviewed. Review of systems otherwise unremarkable. PAIN: Patient self reports no pain EYES: No recent vision changes EARS, NOSE, & THROAT: +dysphagia CARDIOVASCULAR: Denies chest pain or palpitations PULMONARY: Denies shortness of breath GASTROINTESTINAL: Denies constipation/diarrhea GENITOURINARY: denies dysuria MUSCULOSKELETAL: left sided weakness NEUROLOGICAL:left sided paresis HEMATOLOGICAL: denies easy bruising SKIN:scattered shiny erythematous and papular lesions PSYCHIATRIC: Unremarkable All other review of systems found to be negative. PHYSICAL EXAMINATION: VITAL SIGNS: Please see below. GENERAL: Pleasant and cooperative. No acute distress. HEENT: PERRL. Extraocular movements intact. Clear conjunctiva CARDIOVASCULAR: Regular rate and rhythm. No murmurs, rubs, or gallops LUNGS: Clear to auscultation bilaterally. no wheezes. No rhonchi ABDOMEN: Soft, nontender, nondistended. Positive bowel sounds. Normal active bowel sounds NEUROLOGICAL: Alert and oriented times three. Cranial nerves II through XII grossly intact. decreased sensation to light touch on LUE and LLE with left sided inattention EXTREMITIES: 5\\5 strength right upper extremities. 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 3/5 left hip flexors, 4/5 knee extensors/ankle DF/EHL. PF (-) SLR on the left, no groin pain with left hip internal rotation, patient reports a "stretch" in the back of his left leg with extension SKIN: sacral fold with healed incision, left elbow effusion, bilat anterior shins with shiny erythematous plaques with yellow pigmented papules, scattered papular lesions ASSESSMENT:44-year-old M with past medical history of DM who presents status post right MCA territory infarct PLAN: 1. Rehab- PT/OT advance gait and ADL training, dynamic balance training, strengthen/stretch/maintain ROM all 4 limbs- able to advance his left leg in PT -HUC evaluate for of and dysphagia- regular solid and thins 2. Neuro: s/p right MCA infarct having received tpa with left sided paresis and neglect -c/u ASA and statin for secondary stroke prevention, BP control -prozac for motor recovery -patient reporting right sided headache, suspect nicotine and caffeine withdrawal as patient reports he had >10 cups of coffee a day, headaches improving since initiation of Cymbalta and gabapentin -CTH on 10-27-19 negative for new infarct, no new deficit on exam 3. Cardiac: hx of HTN-c/u metoprolol and hydralazine, c/u monitor-medicine consulted to assist in management -HLD with hypertriglyceridemia with scattered Xanthoma lesions-c/u statin and Tricor 4. resp: encourage incentive spirometry, monitor for infection -c/u duonebs 5. Endo: pmh DM c/u Levemir and ISS, adjust prn 6. : with with urinary retention at [facility] started on Flomax, will c/u- monitor PVRs, voiding well 7. DVT ppx: Lovenox and TEDs, dopplers negative x2 8. GI ppx: holding protonix, colace, senna as can all contribute to loose stoo ls- FOBT negative -Imodium prn loose stools 9. Pain: patient with right sided headaches that have resolved, c/u Cymbalta and gabapentin dosing -suspect left biceps femoris tendinitis, will start menthol salicylate rub, encourage stretching in therapy 10. Psych: trazodone 50mg qHS 11. Dispo: 11-22-19 to home, progressing towards goals Allergies Coded Allergies: lactose (Verified Adverse Reaction, Mild, GI UPSET, 10/26/19) Vital Signs Vital Signs Date Time Temp Pulse Resp B/P (MAP) Pulse Ox O2 Delivery O2 Flow Rate FiO2 11/07/19 07:46 128/68 11/07/19 07:46 82 11/07/19 06:44 97.7 18 93 Room Air Laboratory Data CBC/BMP Laboratory Tests 11/07/19 06:19 Labs 24H Laboratory Tests 2 11/06/19 16:27: Bedside Glucose (Misc Panel) 211H 11/06/19 20:04: Bedside Glucose (Misc Panel) 138H 11/07/19 06:11: Bedside Glucose (Misc Panel) 147H 11/07/19 06:19: Nucleated Red Blood Cells % (auto) 0.0, Anion Gap 3L, Glomerular Filtration Rate > 60.0, Calcium Level 8.4L 11/07/19 11:48: Bedside Glucose (Misc Panel) 156H Microbiology Microbiology 11/05/19 Stool Occult Blood (KATARINA) - Final, Complete Current Medications Current Medications Current Medications Medications (Trade) Dose Ordered Sig/Anthony Route PRN Reason Start Time Stop Time Status Last Admin Dose Admin Acetaminophen (Tylenol Tab) 650 mg Q4HP PRN PO fever/MILD PAIN (PS 1-4) 10/26/19 14:00 10/26/19 17:07 DC Acetaminophen (Tylenol Tab) 650 mg TID PO 10/26/19 16:00 11/07/19 07:46 Acetaminophen/ Butalbital/ Caffeine (Fioricet) 1 ea Q4HP PRN PO HEADACHE 10/26/19 17:15 10/29/19 06:00 Albuterol/ Ipratropium (Duoneb (Ipr 0.5mg/Alb 2.5mg)) 3 ml RTID NEB 10/26/19 20:00 11/06/19 20:06 Aspirin (Aspirin) 325 mg STAT STAT PO 10/27/19 13:16 10/27/19 13:21 DC 10/27/19 13:26 Aspirin (Ecotrin) 81 mg DAILY PO 10/27/19 09:00 11/07/19 07:46 Atorvastatin Calcium (Lipitor) 80 mg QHS PO 10/27/19 21:00 11/06/19 21:10 Bisacodyl (Dulcolax Suppository) 10 mg DAILYPRN PRN AR BOWEL CARE/CONSTIPATION 10/27/19 10:45 Dextrose (Dextrose 50%) 25 ml ASDIRECTED PRN IV SEE LABEL COMMENTS 10/26/19 14:00 Docusate Sodium (Colace) 100 mg BID PO 10/26/19 21:00 11/04/19 12:13 DC 11/01/19 07:34 Duloxetine HCl (Cymbalta) 30 mg DAILY PO 10/29/19 09:00 11/07/19 07:45 Duloxetine HCl (Cymbalta) 30 mg DAILY PO 10/30/19 09:00 10/29/19 10:05 DC Enoxaparin Sodium (Lovenox) 40 mg DAILY SC 10/27/19 09:00 11/07/19 07:47 Fenofibrate (Tricor) 145 mg DAILY PO 10/27/19 09:00 11/07/19 07:45 Fluoxetine HCl (PROzac) 20 mg DAILY PO 10/27/19 09:00 10/29/19 09:29 DC 10/29/19 08:06 Gabapentin (Neurontin) 100 mg TID PO 10/29/19 09:00 10/31/19 11:46 DC 10/31/19 09:12 Gabapentin (Neurontin) 200 mg TID PO 10/31/19 16:00 11/07/19 07:46 Glucagon (Glucagon) 1 mg ASDIRECTED PRN SC SEE LABEL COMMENTS 10/26/19 14:00 Glucose (Glucose) 16 GM ASDIRECTED PRN PO SEE LABEL COMMENTS 10/26/19 14:00 Home Med (Med Rec Complete!) ASDIRECTED XX 10/26/19 15:45 10/26/19 15:51 DC Hydralazine HCl (Apresoline) 25 mg TID PO 10/28/19 09:00 11/07/19 07:46 Insulin Detemir (Levemir Insulin) 5 units QHS SC 10/26/19 21:00 10/27/19 09:52 DC 10/26/19 21:59 Insulin Detemir (Levemir Insulin) 8 units QHS SC 10/27/19 21:00 11/02/19 10:45 DC 11/01/19 21:09 Insulin Detemir (Levemir Insulin) 10 units QHS SC 11/02/19 21:00 11/06/19 21:11 Insulin Human Lispro (HumaLOG INSULIN) SEE PROTOCOL TABLE AC SC 10/26/19 17:30 11/07/19 11:57 Insulin Human Lispro (HumaLOG INSULIN) SEE PROTOCOL TABLE QHS SC 10/26/19 21:00 Lidocaine (Lidoderm Patch) 2 patch DAILY TD 11/07/19 09:00 11/07/19 12:15 DC 11/07/19 11:56 Loperamide HCl (Imodium) 2 mg ASDIRECTED PRN PO DIARRHEA 11/04/19 12:15 Magnesium Hydroxide (Milk Of Magnesia) 30 ml DAILYPRN PRN PO CONSTIPATION 10/26/19 14:00 Magnesium Oxide (Mag-Ox) 400 mg DAILY PO 10/27/19 09:00 11/04/19 12:13 DC 11/04/19 08:32 Menthol/Methyl Salicylate (Bengay Cream) 1 dose TID TOP 11/07/19 16:00 Metoprolol Tartrate (Lopressor) 25 mg BID PO 10/26/19 21:00 10/28/19 09:40 DC 10/28/19 07:23 Metoprolol Tartrate (Lopressor) 50 mg BID PO 10/28/19 21:00 11/07/19 07:46 Miscellaneous (Unresolved Clarification Entry) SEE LABEL COMMENTS DAILY XX 11/02/19 09:00 11/03/19 14:47 DC Nicotine (Nicoderm Cq 14mg) 1 patch DAILY TD 10/26/19 09:00 11/07/19 07:47 Nitroglycerin (Nitrostat (1/ 150)) 0.4 mg Q5MP PRN SL CHEST PAIN 10/27/19 13:30 10/27/19 15:57 Non-Formulary Medication ( See Comment Field Below ) REMOVE LIDODERM PATCH DAILY@21 XX 11/07/19 21:00 11/07/19 12:17 DC Ondansetron HCl (ZOFRAN INJection) 4 mg Q8HP PRN IV NAUSEA OR VOMITING 10/28/19 10:45 Ondansetron HCl (Zofran Odt) 4 mg Q6HP PRN PO NAUSEA OR VOMITING 10/27/19 13:30 10/29/19 07:10 Pantoprazole Sodium (Protonix) 40 mg DAILY PO 10/27/19 09:00 11/04/19 12:16 DC 11/04/19 08:32 Senna (Senokot) 1 tab QHS PO 10/26/19 21:00 11/04/19 12:13 DC 10/28/19 21:48 Tamsulosin HCl (Flomax) 0.4 mg DAILY PO 10/27/19 09:00 11/07/19 07:46 Tramadol HCl (Ultram) 25 mg Q6H PRN PO SEVERE HEADACHE 10/31/19 11:15 11/04/19 12:14 DC Tramadol HCl (Ultram) 50 mg Q4H PRN PO SEVERE HEADACHE 2/21/20 09:45 10/31/19 11:15 DC 10/30/19 12:32 Tramadol HCl (Ultram) 50 mg Q8H PRN PO SEVERE HEADACHE 10/27/19 12:30 10/28/19 09:40 DC 10/28/19 01:36 Trazodone HCl (Desyrel) 25 mg QHS PO 10/26/19 21:00 10/31/19 11:46 DC 10/30/19 21:23 Trazodone HCl (Desyrel) 50 mg QHS PO 10/31/19 21:00 11/06/19 21:10 TERRANCE PULIDO MD Nov 07, 2019 14:48
[2019-11-07] MEDS: ANALGESIC BALM CRM 120 GM TOP SCH ×2 (16:00→20:43)
[2019-11-07 20:08] VITALS: BP 159/70
[2019-11-07] MEDS: ATORVASTATIN 20 MG TAB PO SCH (20:41)
[2019-11-07] MEDS: LEVEMIR (INSULIN DETEMIR) 1 UNITS/0.01ML SC SCH (20:41)
[2019-11-07] MEDS: traZODone 50 MG TAB PO SCH (20:42)
[2019-11-07] MEDS ORDERED: **NOTE PATIENT COMMENT** MISC XX SCH (21:00)
[2019-11-08 06:00] VITALS: BP 134/69
[2019-11-08] MEDS: IPRATROPIUM 0.5MG/ALBUTEROL 2.5MG INH SOL UD 3ML (DUONEB)(J7620) NEB SCH ×3 (07:33→21:03)
[2019-11-08] MEDS: NICOTINE 14 MG/24 HR TRANSDERMAL TD SCH (08:10)
[2019-11-08] MEDS: ENOXAPARIN 40 MG/0.4 ML SYRINGE (J1650) SC SCH (08:10)
[2019-11-08] MEDS: HumaLOG INSULIN (NovoLOG) PER UNIT SC SCH ×4 (08:11→21:00)
[2019-11-08] MEDS: ACETAMINOPHEN TAB 650MG DOSE (2X325MG) PO SCH ×3 (08:12→22:25)
[2019-11-08] MEDS: DULoxetine 30 MG CAP (CYMBALTA) PO SCH (08:13)
[2019-11-08] MEDS: TAMSULOSIN 0.4 MG CAP PO SCH (08:13)
[2019-11-08] MEDS: ASPIRIN 81 MG ENTERIC TAB PO SCH (08:13)
[2019-11-08] MEDS: METOPROLOL TART 50 MG TAB PO SCH ×2 (08:13→22:25)
[2019-11-08] MEDS: **hydrALAZINE HCL** 25 MG TAB PO SCH ×3 (08:13→22:25)
[2019-11-08] MEDS: GABAPENTIN 100 MG CAP PO SCH ×3 (08:13→22:25)
[2019-11-08] MEDS: FENOFIBRATE 145 MG TAB (TRICOR) PO SCH (08:13)
[2019-11-08] MEDS: REMEDY PHYTOPLEX Z-GUARD PASTE 113GM TUBE (FROM STOREROOM PRODUCT) TOP SCH ×3 (08:14→21:00)
[2019-11-08] MEDS: ANALGESIC BALM CRM 120 GM TOP SCH ×3 (11:59→22:26)
[2019-11-08 14:00] VITALS: BP 133/69
[2019-11-08 20:00] VITALS: BP 154/76
[2019-11-08] MEDS: ATORVASTATIN 20 MG TAB PO SCH (22:25)
[2019-11-08] MEDS: traZODone 50 MG TAB PO SCH (22:25)
[2019-11-08] MEDS: LEVEMIR (INSULIN DETEMIR) 1 UNITS/0.01ML SC SCH (22:26)
[2019-11-09 05:37] VITALS: BP 158/90
[2019-11-09] MEDS: IPRATROPIUM 0.5MG/ALBUTEROL 2.5MG INH SOL UD 3ML (DUONEB)(J7620) NEB SCH ×3 (07:42→19:16)
[2019-11-09] MEDS: ENOXAPARIN 40 MG/0.4 ML SYRINGE (J1650) SC SCH (08:53)
[2019-11-09] MEDS: NICOTINE 14 MG/24 HR TRANSDERMAL TD SCH (08:53)
[2019-11-09] MEDS: ASPIRIN 81 MG ENTERIC TAB PO SCH (08:54)
[2019-11-09] MEDS: DULoxetine 30 MG CAP (CYMBALTA) PO SCH (08:54)
[2019-11-09] MEDS: FENOFIBRATE 145 MG TAB (TRICOR) PO SCH (08:54)
[2019-11-09] MEDS: HumaLOG INSULIN (NovoLOG) PER UNIT SC SCH ×4 (08:54→21:00)
[2019-11-09] MEDS: TAMSULOSIN 0.4 MG CAP PO SCH (08:54)
[2019-11-09] MEDS: **hydrALAZINE HCL** 25 MG TAB PO SCH ×3 (08:54→21:57)
[2019-11-09] MEDS: METOPROLOL TART 50 MG TAB PO SCH ×2 (08:54→21:57)
[2019-11-09] MEDS: GABAPENTIN 100 MG CAP PO SCH ×3 (08:54→21:58)
[2019-11-09] MEDS: ACETAMINOPHEN TAB 650MG DOSE (2X325MG) PO SCH ×3 (08:54→21:57)
[2019-11-09] MEDS: REMEDY PHYTOPLEX Z-GUARD PASTE 113GM TUBE (FROM STOREROOM PRODUCT) TOP SCH ×3 (08:55→21:58)
[2019-11-09] MEDS: ANALGESIC BALM CRM 120 GM TOP SCH ×3 (08:55→21:58)
[2019-11-09 14:00] VITALS: BP 115/55
[2019-11-09 20:25] VITALS: BP 131/66
[2019-11-09] MEDS: traZODone 50 MG TAB PO SCH (21:57)
[2019-11-09] MEDS: ATORVASTATIN 20 MG TAB PO SCH (21:57)
[2019-11-09] MEDS: LEVEMIR (INSULIN DETEMIR) 1 UNITS/0.01ML SC SCH (21:58)
[2019-11-10 05:33] VITALS: BP 137/64
[2019-11-10] MEDS: LOPERAMIDE 2 MG CAPLET PO PRN ×2 (06:45→22:11)
[2019-11-10 07:42] LABS: BASO % 0.2 % (0.0-1.0); EOS # 0.3 10^3/uL (0.0-0.5); HEMATOCRIT 42.7 % (42.0-52.0); HEMOGLOBIN 14.4 g/dl (13.5-17.5); LYMPH # 1.5 10^3/uL (1.5-5.0); LYMPH % 23.3 % (24.0-44.0); MEAN CORPUSCULAR HEMOGLOBIN 30.1 pg (27.0-33.0); MEAN CORPUSCULAR HGB CONC 33.7 g/dl (32.0-36.5); MEAN CORPUSCULAR VOLUME 89.3 fl (80.0-96.0); MONO # 0.5 10^3/uL (0.0-0.8); MONO % 7.9 % (0.0-5.0); NEUTROPHILS # 4.2 10^3/uL (1.5-8.5); NEUTROPHILS % 64.3 % (36.0-66.0); PLATELET COUNT, AUTOMATED 250 10^3/uL (150-450); RED BLOOD COUNT 4.78 10^6/uL (4.30-6.10); WHITE BLOOD COUNT 6.6 10^3/uL (4.0-10.0)
[2019-11-10 08:07] LABS: BLOOD UREA NITROGEN 15 MG/DL (7-18); CALCIUM LEVEL 9.1 MG/DL (8.5-10.1); CARBON DIOXIDE LEVEL 31 MEQ/L (21-32); CHLORIDE LEVEL 104 MEQ/L (98-107); GLOMERULAR FILTRATION RATE > 60.0 (>60); GLUCOSE, FASTING 189 MG/DL (70-100); SODIUM LEVEL 137 MEQ/L (136-145)
[2019-11-10] MEDS: NICOTINE 7 MG/24 HR TRANSDERMAL TD SCH (08:13)
[2019-11-10] MEDS: HumaLOG INSULIN (NovoLOG) PER UNIT SC SCH ×4 (08:13→21:00)
[2019-11-10] MEDS: ENOXAPARIN 40 MG/0.4 ML SYRINGE (J1650) SC SCH (08:16)
[2019-11-10] MEDS: FENOFIBRATE 145 MG TAB (TRICOR) PO SCH (08:17)
[2019-11-10] MEDS: ACETAMINOPHEN TAB 650MG DOSE (2X325MG) PO SCH ×3 (08:17→22:08)
[2019-11-10] MEDS: **hydrALAZINE HCL** 25 MG TAB PO SCH ×3 (08:17→22:01)
[2019-11-10] MEDS: TAMSULOSIN 0.4 MG CAP PO SCH (08:17)
[2019-11-10] MEDS: GABAPENTIN 100 MG CAP PO SCH ×3 (08:17→22:00)
[2019-11-10] MEDS: DULoxetine 30 MG CAP (CYMBALTA) PO SCH (08:17)
[2019-11-10] MEDS: ASPIRIN 81 MG ENTERIC TAB PO SCH (08:17)
[2019-11-10] MEDS: METOPROLOL TART 50 MG TAB PO SCH ×2 (08:18→22:00)
[2019-11-10] MEDS: REMEDY PHYTOPLEX Z-GUARD PASTE 113GM TUBE (FROM STOREROOM PRODUCT) TOP SCH ×3 (08:18→22:12)
[2019-11-10] MEDS: ANALGESIC BALM CRM 120 GM TOP SCH ×3 (08:18→21:00)
[2019-11-10] MEDS: IPRATROPIUM 0.5MG/ALBUTEROL 2.5MG INH SOL UD 3ML (DUONEB)(J7620) NEB SCH ×3 (08:34→19:38)
[2019-11-10 09:00] VITALS: BP 114/68
--- NOTE | 2019-11-10 11:37 | IPNPDOC ---
PM&R Progress Note DATE OF SERVICE: Nov 08, 2019 Forensics Team Director Progress Note Subjective: Patient reporting his left thigh feels better with the muscle rub. He is concerned about his sexual function stating he is unable to sustain an erection. He was told it may be due to the stroke, beta-lolis, and/or SSRI. He was offered to be taken off Prozac given his good motor return, but states he would like to continue for now. He was told that options like Viagra were a possibility after having waited at least 6 months from time of stroke. REVIEW OF SYSTEMS: The following is a completed review of systems and has been reviewed. Review of systems otherwise unremarkable. PAIN: Patient self reports no pain EYES: No recent vision changes EARS, NOSE, & THROAT: +dysphagia CARDIOVASCULAR: Denies chest pain or palpitations PULMONARY: Denies shortness of breath GASTROINTESTINAL: Denies constipation/diarrhea GENITOURINARY: denies dysuria MUSCULOSKELETAL: left sided weakness NEUROLOGICAL:left sided paresis HEMATOLOGICAL: denies easy bruising SKIN:scattered shiny erythematous and papular lesions PSYCHIATRIC: Unremarkable All other review of systems found to be negative. PHYSICAL EXAMINATION: VITAL SIGNS: Please see below. GENERAL: Pleasant and cooperative. No acute distress. HEENT: PERRL. Extraocular movements intact. Clear conjunctiva CARDIOVASCULAR: Regular rate and rhythm. No murmurs, rubs, or gallops LUNGS: Clear to auscultation bilaterally. no wheezes. No rhonchi ABDOMEN: Soft, nontender, nondistended. Positive bowel sounds. Normal active bowel sounds NEUROLOGICAL: Alert and oriented times three. Cranial nerves II through XII g rossly intact. decreased sensation to light touch on LUE and LLE with left sided inattention EXTREMITIES: 5\\5 strength right upper extremities. Left 3/5 elbow flexors, 2/5 elbow extensors, 3/5 wrist extension, cardiology physician 2/5 5\\5 strength right lower extremity. 3/5 left hip flexors, 4/5 knee extensors/a nkle DF/EHL. PF (-) SLR on the left, no groin pain with left hip internal rotation, patient reports a "stretch" in the back of his left leg with extension SKIN: sacral fold with healed incision, left elbow effusion, bilat anterior shins with shiny erythematous plaques with yellow pigmented papules, scattered papular lesions ASSESSMENT:44-year-old M with past medical history of DM who presents status post right MCA territory infarct PLAN: 1. Rehab- PT/OT advance gait and ADL training, dynamic balance training, strengthen/stretch/maintain ROM all 4 limbs- able to advance his left leg in PT -[employer] evaluate for of and dysphagia- regular solid and thins 2. Neuro: s/p right MCA infarct having received tpa with left sided paresis and neglect -c/u ASA and statin for secondary stroke prevention, BP control -prozac for motor recovery -patient reporting right sided headache, suspect nicotine and caffeine withdrawal as patient reports he had >10 cups of coffee a day, headaches improving since initiation of Cymbalta and gabapentin -CTH on 10-27-19 negative for new infarct, no new deficit on exam 3. Cardiac: hx of HTN-c/u metoprolol and hydralazine, c/u monitor-medicine consulted to assist in management -HLD with hypertriglyceridemia with scattered Xanthoma lesions-c/u statin and Tricor 4. resp: encourage incentive spirometry, monitor for infection -c/u duonebs 5. Endo: pmh DM c/u Levemir and ISS, adjust prn 6. : with with urinary retention at [facility] started on Flomax, will c/u- monitor PVRs, voiding well -erectile dysfunction, causes likely multi-fold, will encourage patient to stop SSRI after total of 3 months, f/u with urology on d/c and avoid use of Viagra until at least 6 months following stroke 7. DVT ppx: Lovenox and TEDs, dopplers negative x2 8. GI ppx: holding protonix, colace, senna as can all contribute to loose stools- FOBT negative -Imodium prn loose stools 9. Pain: patient with right sided headaches that have resolved, c/u Cymbalta and gabapentin dosing -suspect left biceps femoris tendinitis, improving, c/u menthol salicylate rub, encourage stretching in therapy 10. Psych: trazodone 50mg qHS 11. Dispo: 11-22-19 to home, progressing towards goals Allergies Coded Allergies: lactose (Verified Adverse Reaction, Mild, GI UPSET, 10/26/19) Vital Signs Vital Signs Date Time Temp Pulse Resp B/P (MAP) Pulse Ox O2 Delivery O2 Flow Rate FiO2 11/10/19 09:00 85 114/68 (83) 11/10/19 05:33 98.0 17 95 Room Air Laboratory Data CBC/BMP Laboratory Tests 11/10/19 07:01 Labs 24H Laboratory Tests 2 11/09/19 12:15: Bedside Glucose (Misc Panel) 86 11/09/19 16:38: Bedside Glucose (Misc Panel) 177H 11/09/19 19:53: Bedside Glucose (Misc Panel) 214H 11/10/19 05:25: Bedside Glucose (Misc Panel) 190H 11/10/19 07:01: Immature Granulocyte % (Auto) 0.3, Neutrophils (%) (Auto) 64.3, Lymphocytes (%) (Auto) 23.3L, Monocytes (%) (Auto) 7.9H, Eosinophils (%) (Auto) 4.0H, Basophils (%) (Auto) 0.2, Neutrophils # (Auto) 4.2, Lymphocytes # (Auto) 1.5, Monocytes # (Auto) 0.5, Eosinophils # (Auto) 0.3, Basophils # (Auto) 0.0, Nucleated Red Blood Cells % (auto) 0.0, Anion Gap 2L, Glomerular Filtration Rate > 60.0, Calcium Level 9.1 11/10/19 11:26: Bedside Glucose (Misc Panel) 185H Microbiology Microbiology 11/05/19 Stool Occult Blood (KATARINA) - Final, Complete Current Medications Current Medications Current Medications Medications (Trade) Dose Ordered Sig/Anthony Route PRN Reason Start Time Stop Time Status Last Admin Dose Admin Acetaminophen (Tylenol Tab) 650 mg Q4HP PRN PO fever/MILD PAIN (PS 1-4) 10/26/19 14:00 10/26/19 17:07 DC Acetaminophen (Tylenol Tab) 650 mg TID PO 10/26/19 16:00 11/10/19 08:17 Acetaminophen/ Butalbital/ Caffeine (Fioricet) 1 ea Q4HP PRN PO HEADACHE 10/26/19 17:15 10/29/19 06:00 Albuterol/ Ipratropium (Duoneb (Ipr 0.5mg/Alb 2.5mg)) 3 ml RTID NEB 10/26/19 20:00 11/10/19 08:34 Aspirin (Aspirin) 325 mg STAT STAT PO 10/27/19 13:16 10/27/19 13:21 DC 10/27/19 13:26 Aspirin (Ecotrin) 81 mg DAILY PO 10/27/19 09:00 11/10/19 08:17 Atorvastatin Calcium (Lipitor) 80 mg QHS PO 10/27/19 21:00 11/09/19 21:57 Bisacodyl (Dulcolax Suppository) 10 mg DAILYPRN PRN SD BOWEL CARE/CONSTIPATION 10/27/19 10:45 Dextrose (Dextrose 50%) 25 ml ASDIRECTED PRN IV SEE LABEL COMMENTS 10/26/19 14:00 Docusate Sodium (Colace) 100 mg BID PO 10/26/19 21:00 11/04/19 12:13 DC 11/01/19 07:34 Duloxetine HCl (Cymbalta) 30 mg DAILY PO 10/29/19 09:00 11/10/19 08:17 Duloxetine HCl (Cymbalta) 30 mg DAILY PO 10/30/19 09:00 10/29/19 10:05 DC Enoxaparin Sodium (Lovenox) 40 mg DAILY SC 10/27/19 09:00 11/10/19 08:16 Fenofibrate (Tricor) 145 mg DAILY PO 10/27/19 09:00 11/10/19 08:17 Fluoxetine HCl (PROzac) 20 mg DAILY PO 10/27/19 09:00 10/29/19 09:29 DC 10/29/19 08:06 Gabapentin (Neurontin) 100 mg TID PO 10/29/19 09:00 10/31/19 11:46 DC 10/31/19 09:12 Gabapentin (Neurontin) 200 mg TID PO 10/31/19 16:00 11/10/19 08:17 Glucagon (Glucagon) 1 mg ASDIRECTED PRN SC SEE LABEL COMMENTS 10/26/19 14:00 Glucose (Glucose) 16 GM ASDIRECTED PRN PO SEE LABEL COMMENTS 10/26/19 14:00 Home Med (Med Rec Complete!) ASDIRECTED XX 10/26/19 15:45 10/26/19 15:51 DC Hydralazine HCl (Apresoline) 25 mg TID PO 10/28/19 09:00 11/10/19 08:17 Insulin Detemir (Levemir Insulin) 5 units QHS SC 10/26/19 21:00 10/27/19 09:52 DC 10/26/19 21:59 Insulin Detemir (Levemir Insulin) 8 units QHS SC 10/27/19 21:00 11/02/19 10:45 DC 11/01/19 21:09 Insulin Detemir (Levemir Insulin) 10 units QHS SC 11/02/19 21:00 11/09/19 21:58 Insulin Human Lispro (HumaLOG INSULIN) SEE PROTOCOL TABLE AC SC 10/26/19 17:30 11/10/19 08:13 Insulin Human Lispro (HumaLOG INSULIN) SEE PROTOCOL TABLE [facility] 10/26/19 21:00 Lidocaine (Lidoderm Patch) 2 patch DAILY TD 11/07/19 09:00 11/07/19 12:15 DC 11/07/19 11:56 Loperamide HCl (Imodium) 2 mg ASDIRECTED PRN PO DIARRHEA 11/04/19 12:15 11/10/19 06:45 Magnesium Hydroxide (Milk Of Magnesia) 30 ml DAILYPRN PRN PO CONSTIPATION 10/26/19 14:00 Magnesium Oxide (Mag-Ox) 400 mg DAILY PO 10/27/19 09:00 11/04/19 12:13 DC 11/04/19 08:32 Menthol/Methyl Salicylate (Bengay Cream) 1 dose TID TOP 11/07/19 16:00 11/09/19 21:58 Metoprolol Tartrate (Lopressor) 25 mg BID PO 10/26/19 21:00 10/28/19 09:40 DC 10/28/19 07:23 Metoprolol Tartrate (Lopressor) 50 mg BID PO 10/28/19 21:00 11/10/19 08:18 Miscellaneous (Unresolved Clarification Entry) SEE LABEL COMMENTS DAILY XX 11/02/19 09:00 11/03/19 14:47 DC Miscellaneous (Unresolved Clarification Entry) SEE LABEL COMMENTS DAILY XX 11/08/19 09:00 11/08/19 10:48 DC Nicotine (Nicoderm Cq 14mg) 1 patch DAILY TD 10/26/19 09:00 11/09/19 16:58 DC 11/09/19 08:53 Nicotine (Nicoderm Cq 7 Mg) 1 patch DAILY TD 11/10/19 09:00 11/10/19 08:13 Nitroglycerin (Nitrostat (1/ 150)) 0.4 mg Q5MP PRN SL CHEST PAIN 10/27/19 13:30 10/27/19 15:57 Non-Formulary Medication ( See Comment Field Below ) REMOVE LIDODERM PATCH DAILY@21 XX 11/07/19 21:00 11/07/19 12:17 DC Ondansetron HCl (ZOFRAN INJection) 4 mg Q8HP PRN IV NAUSEA OR VOMITING 10/28/19 10:45 Ondansetron HCl (Zofran Odt) 4 mg Q6HP PRN PO NAUSEA OR VOMITING 10/27/19 13:30 10/29/19 07:10 Pantoprazole Sodium (Protonix) 40 mg DAILY PO 10/27/19 09:00 11/04/19 12:16 DC 11/04/19 08:32 Senna (Senokot) 1 tab QHS PO 10/26/19 21:00 11/04/19 12:13 DC 10/28/19 21:48 Tamsulosin HCl (Flomax) 0.4 mg DAILY PO 10/27/19 09:00 11/10/19 08:17 Tramadol HCl (Ultram) 25 mg Q6H PRN PO SEVERE HEADACHE 10/31/19 11:15 11/04/19 12:14 DC Tramadol HCl (Ultram) 50 mg Q4H PRN PO SEVERE HEADACHE 10/28/19 09:45 10/31/19 11:15 DC 10/30/19 12:32 Tramadol HCl (Ultram) 50 mg Q8H PRN PO SEVERE HEADACHE 10/27/19 12:30 10/28/19 09:40 DC 10/28/19 01:36 Trazodone HCl (Desyrel) 25 mg QHS PO 10/26/19 21:00 10/31/19 11:46 DC 10/30/19 21:23 Trazodone HCl (Desyrel) 50 mg QHS PO 10/31/19 21:00 11/09/19 21:57 TERRANCE PULIDO MD Nov 10, 2019 11:37
--- NOTE | 2019-11-10 11:40 | IPNPDOC ---
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 REVIEW OF SYSTEMS: The following is a completed review of systems and has been reviewed. Review of systems otherwise unremarkable. PAIN: Patient self reports no pain EYES: No recent vision changes EARS, NOSE, & THROAT: +dysphagia CARDIOVASCULAR: Denies chest pain or palpitations PULMONARY: Denies shortness of breath GASTROINTESTINAL: Denies constipation/diarrhea GENITOURINARY: denies dysuria MUSCULOSKELETAL: left sided weakness NEUROLOGICAL:left sided paresis HEMATOLOGICAL: denies easy bruising SKIN:scattered shiny erythematous and papular lesions PSYCHIATRIC: Unremarkable All other review of systems found to be negative. PHYSICAL EXAMINATION: VITAL SIGNS: Please see below. GENERAL: Pleasant and cooperative. No acute distress. HEENT: PERRL. Extraocular movements intact. Clear conjunctiva CARDIOVASCULAR: Regular rate and rhythm. No murmurs, rubs, or gallops LUNGS: Clear to auscultation bilaterally. no wheezes. No rhonchi ABDOMEN: Soft, nontender, nondistended. Positive bowel sounds. Normal active bowel sounds NEUROLOGICAL: Alert and oriented times three. Cranial nerves II through XII grossly intact. decreased sensation to light touch on LUE and LLE with left sided inattention EXTREMITIES: 5\\5 strength right upper extremities. Left 3/5 elbow flexors, 2/5 elbow extensors, 3/5 wrist extension, firearms inspector 2/5 5\\5 strength right lower extremity. 3/5 left hip flexors, 4/5 knee extensors/ankle DF/EHL. PF (-) SLR on the left, no groin pain with left hip internal rotation, patient reports a "stretch" in the back of his left leg with extension SKIN: sacral fold with healed incision, left elbow effusion, bilat anterior shins with shiny erythematous plaques with yellow pigmented papules, scattered papular lesions ASSESSMENT:44-year-old M with past medical history of DM who presents status post right MCA territory infarct PLAN: 1. Rehab- PT/OT advance gait and ADL training, dynamic balance training, strengthen/stretch/maintain ROM all 4 limbs- able to advance his left leg in PT -[employer] evaluate for of and dysphagia- regular solid and thins 2. Neuro: s/p right MCA infarct having received tpa with left sided paresis and neglect -c/u ASA and statin for secondary stroke prevention, BP control -prozac for motor recovery -patient reporting right sided headache, suspect nicotine and caffeine withdrawal as patient reports he had >10 cups of coffee a day, headaches improving since initiation of Cymbalta and gabapentin-resolved, will taper Nicotine patch -CTH on 10-27-19 negative for new infarct, no new deficit on exam 3. Cardiac: hx of HTN-c/u metoprolol and hydralazine, c/u monitor-medicine consulted to assist in management -HLD with hypertriglyceridemia with scattered Xanthoma lesions-c/u statin and Tricor 4. resp: encourage incentive spirometry, monitor for infection -c/u duonebs 5. Endo: pmh DM c/u Levemir and ISS, adjust prn 6. : with with urinary retention at [facility] started on Flomax, will c/u- monitor PVRs, voiding well -erectile dysfunction, causes likely multi-fold, will encourage patient to stop SSRI after total of 3 months, f/u with urology on d/c and avoid use of Viagra until at least 6 months following stroke 7. DVT ppx: Lovenox and TEDs, dopplers negative x2 8. GI ppx: holding protonix, colace, senna as can all contribute to loose stools- FOBT negative -Imodium prn loose stools 9. Pain: patient with right sided headaches that have resolved, c/u Cymbalta and gabapentin dosing -suspect left biceps femoris tendinitis, improving, c/u menthol salicylate rub, encourage stretching in therapy 10. Psych: trazodone 50mg qHS 11. Dispo: 11-22-19 to home, progressing towards goals Allergies Coded Allergies: lactose (Verified Adverse Reaction, Mild, GI UPSET, 10/26/19) Vital Signs Vital Signs Date Time Temp Pulse Resp B/P (MAP) Pulse Ox O2 Delivery O2 Flow Rate FiO2 11/10/19 09:00 85 114/68 (83) 11/10/19 05:33 98.0 17 95 Room Air Laboratory Data CBC/BMP Laboratory Tests 11/10/19 07:01 Labs 24H Laboratory Tests 2 11/09/19 12:15: Bedside Glucose (Misc Panel) 86 11/09/19 16:38: Bedside Glucose (Misc Panel) 177H 11/09/19 19:53: Bedside Glucose (Misc Panel) 214H 11/10/19 05:25: Bedside Glucose (Misc Panel) 190H 11/10/19 07:01: Immature Granulocyte % (Auto) 0.3, Neutrophils (%) (Auto) 64.3, Lymphocytes (%) (Auto) 23.3L, Monocytes (%) (Auto) 7.9H, Eosinophils (%) (Auto) 4.0H, Basophils (%) (Auto) 0.2, Neutrophils # (Auto) 4.2, Lymphocytes # (Auto) 1.5, Monocytes # (Auto) 0.5, Eosinophils # (Auto) 0.3, Basophils # (Auto) 0.0, Nucleated Red Blood Cells % (auto) 0.0, Anion Gap 2L, Glomerular Filtration Rate > 60.0, Calcium Level 9.1 11/10/19 11:26: Bedside Glucose (Misc Panel) 185H Microbiology Microbiology 11/05/19 Stool Occult Blood (KATARINA) - Final, Complete Current Medications Current Medications Current Medications Medications (Trade) Dose Ordered Sig/Anthony Route PRN Reason Start Time Stop Time Status Last Admin Dose Admin Acetaminophen (Tylenol Tab) 650 mg Q4HP PRN PO fever/MILD PAIN (PS 1-4) 10/26/19 14:00 10/26/19 17:07 DC Acetaminophen (Tylenol Tab) 650 mg TID PO 10/26/19 16:00 11/10/19 08:17 Acetaminophen/ Butalbital/ Caffeine (Fioricet) 1 ea Q4HP PRN PO HEADACHE 10/26/19 17:15 10/29/19 06:00 Albuterol/ Ipratropium (Duoneb (Ipr 0.5mg/Alb 2.5mg)) 3 ml RTID NEB 10/26/19 20:00 11/10/19 08:34 Aspirin (Aspirin) 325 mg STAT STAT PO 10/27/19 13:16 10/27/19 13:21 DC 10/27/19 13:26 Aspirin (Ecotrin) 81 mg DAILY PO 10/27/19 09:00 11/10/19 08:17 Atorvastatin Calcium (Lipitor) 80 mg QHS PO 10/27/19 21:00 11/09/19 21:57 Bisacodyl (Dulcolax Suppository) 10 mg DAILYPRN PRN ND BOWEL CARE/CONSTIPATION 10/27/19 10:45 Dextrose (Dextrose 50%) 25 ml ASDIRECTED PRN IV SEE LABEL COMMENTS 10/26/19 14:00 Docusate Sodium (Colace) 100 mg BID PO 10/26/19 21:00 11/04/19 12:13 DC 11/01/19 07:34 Duloxetine HCl (Cymbalta) 30 mg DAILY PO 10/29/19 09:00 11/10/19 08:17 Duloxetine HCl (Cymbalta) 30 mg DAILY PO 10/30/19 09:00 10/29/19 10:05 DC Enoxaparin Sodium (Lovenox) 40 mg DAILY SC 10/27/19 09:00 11/10/19 08:16 Fenofibrate (Tricor) 145 mg DAILY PO 10/27/19 09:00 11/10/19 08:17 Fluoxetine HCl (PROzac) 20 mg DAILY PO 10/27/19 09:00 10/29/19 09:29 DC 10/29/19 08:06 Gabapentin (Neurontin) 100 mg TID PO 10/29/19 09:00 10/31/19 11:46 DC 10/31/19 09:12 Gabapentin (Neurontin) 200 mg TID PO 10/31/19 16:00 11/10/19 08:17 Glucagon (Glucagon) 1 mg ASDIRECTED PRN SC SEE LABEL COMMENTS 10/26/19 14:00 Glucose (Glucose) 16 GM ASDIRECTED PRN PO SEE LABEL COMMENTS 10/26/19 14:00 Home Med (Med Rec Complete!) ASDIRECTED XX 10/26/19 15:45 10/26/19 15:51 DC Hydralazine HCl (Apresoline) 25 mg TID PO 10/28/19 09:00 11/10/19 08:17 Insulin Detemir (Levemir Insulin) 5 units QHS SC 10/26/19 21:00 10/27/19 09:52 DC 10/26/19 21:59 Insulin Detemir (Levemir Insulin) 8 units QHS SC 10/27/19 21:00 11/02/19 10:45 DC 11/01/19 21:09 Insulin Detemir (Levemir Insulin) 10 units QHS SC 11/02/19 21:00 11/09/19 21:58 Insulin Human Lispro (HumaLOG INSULIN) SEE PROTOCOL TABLE AC SC 10/26/19 17:30 11/10/19 08:13 Insulin Human Lispro (HumaLOG INSULIN) SEE PROTOCOL TABLE QHS SC 10/26/19 21:00 Lidocaine (Lidoderm Patch) 2 patch DAILY TD 11/07/19 09:00 11/07/19 12:15 DC 11/07/19 11:56 Loperamide HCl (Imodium) 2 mg ASDIRECTED PRN PO DIARRHEA 11/04/19 12:15 11/10/19 06:45 Magnesium Hydroxide (Milk Of Magnesia) 30 ml DAILYPRN PRN PO CONSTIPATION 10/26/19 14:00 Magnesium Oxide (Mag-Ox) 400 mg DAILY PO 10/27/19 09:00 11/04/19 12:13 DC 11/04/19 08:32 Menthol/Methyl Salicylate (Bengay Cream) 1 dose TID TOP 11/07/19 16:00 11/09/19 21:58 Metoprolol Tartrate (Lopressor) 25 mg BID PO 10/26/19 21:00 10/28/19 09:40 DC 10/28/19 07:23 Metoprolol Tartrate (Lopressor) 50 mg BID PO 10/28/19 21:00 11/10/19 08:18 Miscellaneous (Unresolved Clarification Entry) SEE LABEL COMMENTS DAILY XX 11/02/19 09:00 11/03/19 14:47 DC Miscellaneous (Unresolved Clarification Entry) SEE LABEL COMMENTS DAILY XX 11/08/19 09:00 11/08/19 10:48 DC Nicotine (Nicoderm Cq 14mg) 1 patch DAILY TD 10/26/19 09:00 11/09/19 16:58 DC 11/09/19 08:53 Nicotine (Nicoderm Cq 7 Mg) 1 patch DAILY TD 11/10/19 09:00 11/10/19 08:13 Nitroglycerin (Nitrostat (1/ 150)) 0.4 mg Q5MP PRN SL CHEST PAIN 10/27/19 13:30 10/27/19 15:57 Non-Formulary Medication ( See Comment Field Below ) REMOVE LIDODERM PATCH DAILY@21 XX 11/07/19 21:00 3/2/20 12:17 DC Ondansetron HCl (ZOFRAN INJection) 4 mg Q8HP PRN IV NAUSEA OR VOMITING 10/28/19 10:45 Ondansetron HCl (Zofran Odt) 4 mg Q6HP PRN PO NAUSEA OR VOMITING 10/27/19 13:30 10/29/19 07:10 Pantoprazole Sodium (Protonix) 40 mg DAILY PO 10/27/19 09:00 11/04/19 12:16 DC 11/04/19 08:32 Senna (Senokot) 1 tab QHS PO 10/26/19 21:00 11/04/19 12:13 DC 10/28/19 21:48 Tamsulosin HCl (Flomax) 0.4 mg DAILY PO 10/27/19 09:00 11/10/19 08:17 Tramadol HCl (Ultram) 25 mg Q6H PRN PO SEVERE HEADACHE 10/31/19 11:15 11/04/19 12:14 DC Tramadol HCl (Ultram) 50 mg Q4H PRN PO SEVERE HEADACHE 10/28/19 09:45 10/31/19 11:15 DC 10/30/19 12:32 Tramadol HCl (Ultram) 50 mg Q8H PRN PO SEVERE HEADACHE 10/27/19 12:30 10/28/19 09:40 DC 10/28/19 01:36 Trazodone HCl (Desyrel) 25 mg QHS PO 10/26/19 21:00 10/31/19 11:46 DC 10/30/19 21:23 Trazodone HCl (Desyrel) 50 mg QHS PO 10/31/19 21:00 11/09/19 21:57 TERRANCE PULIDO MD Nov 10, 2019 11:40
--- NOTE | 2019-11-10 11:51 | IPNPDOC ---
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 The sensation lasts only a few seconds and is not accompanied by new focal weakness. REVIEW OF SYSTEMS: The following is a completed review of systems and has been reviewed. Review of systems otherwise unremarkable. PAIN: Patient self reports no pain EYES: No recent vision changes EARS, NOSE, & THROAT: +dysphagia (improving) CARDIOVASCULAR: Denies chest pain or palpitations PULMONARY: Denies shortness of breath GASTROINTESTINAL: Denies constipation/diarrhea GENITOURINARY: denies dysuria MUSCULOSKELETAL: left sided weakness NEUROLOGICAL:left sided paresis HEMATOLOGICAL: denies easy bruising SKIN:scattered shiny erythematous and papular lesions PSYCHIATRIC: Unremarkable All other review of systems found to be negative. PHYSICAL EXAMINATION: VITAL SIGNS: Please see below. GENERAL: Pleasant and cooperative. No acute distress. HEENT: PERRL. Extraocular movements intact. Clear conjunctiva CARDIOVASCULAR: Regular rate and rhythm. No murmurs, rubs, or gallops LUNGS: Clear to auscultation bilaterally. no wheezes. No rhonchi ABDOMEN: Soft, nontender, nondistended. Positive bowel sounds. Normal active bowel sounds NEUROLOGICAL: Alert and oriented times three. Cranial nerves II through XII grossly intact. decreased sensation to light touch on LUE and LLE with left sided inattention EXTREMITIES: 5\5 strength right upper extremities. Left 3/5 elbow flexors, 2/5 elbow extensors, 3/5 wrist extension, wearing apparel shaker 2/5 5\5 strength right lower extremity. 3/5 left hip flexors, 4/5 knee extensor s/ankle DF/EHL. PF (-) SLR on the left, no groin pain with left hip internal rotation SKIN: sacral fold with healed incision, left elbow effusion, bilat anterior shins with shiny erythematous plaques with yellow pigmented papules, scattered papular lesions ASSESSMENT:44-year-old M with past medical history of DM who presents status post right MCA territory infarct PLAN: 1. 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 Neuro: s/p right MCA infarct having received tpa with left sided paresis and neglect -c/u ASA and statin for secondary stroke prevention, BP control -prozac for motor recovery - right sided headache, suspect nicotine and caffeine withdrawal as patient reports he had >10 cups of coffee a day, headaches resolved since initiation of Cymbalta and gabapentin-resolved, c/u Nicotine patch taper -CTH on 10-27-19 negative for new infarct, no new deficit on exam -neck paresthesias likely due to diabetic polyneuropathy 3. Cardiac: hx of HTN-c/u metoprolol and hydralazine, c/u monitor-medicine consulted to assist in management -HLD with hypertriglyceridemia with scattered Xanthoma lesions-c/u statin and Tricor 4. resp: encourage incentive spirometry, monitor for infection -c/u duonebs 5. Endo: pmh DM c/u Levemir and ISS, adjust prn 6. : with with urinary retention at [facility] started on Flomax, will c/u- monitor PVRs, voiding well -erectile dysfunction, causes likely multi-fold, will encourage patient to stop SSRI after total of 3 months, f/u with urology on d/c and avoid use of Viagra until at least 6 months following stroke 7. DVT ppx: Lovenox and TEDs, dopplers negative x2 8. GI ppx: holding protonix, colace, senna as can all contribute to loose stools- FOBT negative -Imodium prn loose stools 9. Pain: patient with right sided headaches that have resolved, c/u Cymbalta and gabapentin dosing -suspect left biceps femoris tendinitis, improving, c/u menthol salicylate rub, encourage stretching in therapy 10. Psych: trazodone 50mg qHS 11. Dispo: 11-22-19 to home, progressing towards goals Allergies Coded Allergies: lactose (Verified Adverse Reaction, Mild, GI UPSET, 10/26/19) Vital Signs Vital Signs Date Time Temp Pulse Resp B/P (MAP) Pulse Ox O2 Delivery O2 Flow Rate FiO2 11/10/19 09:00 85 114/68 (83) 11/10/19 05:33 98.0 17 95 Room Air Laboratory Data CBC/BMP Laboratory Tests 11/10/19 07:01 Labs 24H Laboratory Tests 2 11/09/19 12:15: Bedside Glucose (Misc Panel) 86 11/09/19 16:38: Bedside Glucose (Misc Panel) 177H 11/09/19 19:53: Bedside Glucose (Misc Panel) 214H 11/10/19 05:25: Bedside Glucose (Misc Panel) 190H 11/10/19 07:01: Immature Granulocyte % (Auto) 0.3, Neutrophils (%) (Auto) 64.3, Lymphocytes (%) (Auto) 23.3L, Monocytes (%) (Auto) 7.9H, Eosinophils (%) (Auto) 4.0H, Basophils (%) (Auto) 0.2, Neutrophils # (Auto) 4.2, Lymphocytes # (Auto) 1.5, Monocytes # (Auto) 0.5, Eosinophils # (Auto) 0.3, Basophils # (Auto) 0.0, Nucleated Red Blo od Cells % (auto) 0.0, Anion Gap 2L, Glomerular Filtration Rate > 60.0, Calcium Level 9.1 11/10/19 11:26: Bedside Glucose (Misc Panel) 185H Microbiology Microbiology 11/05/19 Stool Occult Blood (KATARINA) - Final, Complete Current Medications Current Medications Current Medications Medications (Trade) Dose Ordered Sig/Anthony Route PRN Reason Start Time Stop Time Status Last Admin Dose Admin Acetaminophen (Tylenol Tab) 650 mg Q4HP PRN PO fever/MILD PAIN (PS 1-4) 10/26/19 14:00 10/26/19 17:07 DC Acetaminophen (Tylenol Tab) 650 mg TID PO 10/26/19 16:00 11/10/19 08:17 Acetaminophen/ Butalbital/ Caffeine (Fioricet) 1 ea Q4HP PRN PO HEADACHE 10/26/19 17:15 10/29/19 06:00 Albuterol/ Ipratropium (Duoneb (Ipr 0.5mg/Alb 2.5mg)) 3 ml RTID NEB 10/26/19 20:00 11/10/19 08:34 Aspirin (Aspirin) 325 mg STAT STAT PO 10/27/19 13:16 10/27/19 13:21 DC 10/27/19 13:26 Aspirin (Ecotrin) 81 mg DAILY PO 10/27/19 09:00 11/10/19 08:17 Atorvastatin Calcium (Lipitor) 80 mg QHS PO 10/27/19 21:00 11/09/19 21:57 Bisacodyl (Dulcolax Suppository) 10 mg DAILYPRN PRN SD BOWEL CARE/CONSTIPATION 10/27/19 10:45 Dextrose (Dextrose 50%) 25 ml ASDIRECTED PRN IV SEE LABEL COMMENTS 10/26/19 14:00 Docusate Sodium (Colace) 100 mg BID PO 10/26/19 21:00 11/04/19 12:13 DC 11/01/19 07:34 Duloxetine HCl (Cymbalta) 30 mg DAILY PO 10/29/19 09:00 11/10/19 08:17 Duloxetine HCl (Cymbalta) 30 mg DAILY PO 10/30/19 09:00 10/29/19 10:05 DC Enoxaparin Sodium (Lovenox) 40 mg DAILY SC 10/27/19 09:00 11/10/19 08:16 Fenofibrate (Tricor) 145 mg DAILY PO 10/27/19 09:00 11/10/19 08:17 Fluoxetine HCl (PROzac) 20 mg DAILY PO 10/27/19 09:00 10/29/19 09:29 DC 10/29/19 08:06 Gabapentin (Neurontin) 100 mg TID PO 10/29/19 09:00 10/31/19 11:46 DC 10/31/19 09:12 Gabapentin (Neurontin) 200 mg TID PO 10/31/19 16:00 11/10/19 08:17 Glucagon (Glucagon) 1 mg ASDIRECTED PRN SC SEE LABEL COMMENTS 10/26/19 14:00 Glucose (Glucose) 16 GM ASDIRECTED PRN PO SEE LABEL COMMENTS 10/26/19 14:00 Home Med (Med Rec Complete!) ASDIRECTED XX 10/26/19 15:45 10/26/19 15:51 DC Hydralazine HCl (Apresoline) 25 mg TID PO 10/28/19 09:00 11/10/19 08:17 Insulin Detemir (Levemir Insulin) 5 units QHS SC 10/26/19 21:00 10/27/19 09:52 DC 10/26/19 21:59 Insulin Detemir (Levemir Insulin) 8 units QHS SC 10/27/19 21:00 11/02/19 10:45 DC 11/01/19 21:09 Insulin Detemir (Levemir Insulin) 10 units QHS SC 11/02/19 21:00 11/09/19 21:58 Insulin Human Lispro (HumaLOG INSULIN) SEE PROTOCOL TABLE AC SC 10/26/19 17:30 11/10/19 08:13 Insulin Human Lispro (HumaLOG INSULIN) SEE PROTOCOL TABLE QHS CA 10/26/19 21:00 Lidocaine (Lidoderm Patch) 2 patch DAILY TD 11/07/19 09:00 11/07/19 12:15 DC 11/07/19 11:56 Loperamide HCl (Imodium) 2 mg ASDIRECTED PRN PO DIARRHEA 11/04/19 12:15 11/10/19 06:45 Magnesium Hydroxide (Milk Of Magnesia) 30 ml DAILYPRN PRN PO CONSTIPATION 10/26/19 14:00 Magnesium Oxide (Mag-Ox) 400 mg DAILY PO 10/27/19 09:00 11/04/19 12:13 DC 11/04/19 08:32 Menthol/Methyl Salicylate (Bengay Cream) 1 dose TID TOP 11/07/19 16:00 11/09/19 21:58 Metoprolol Tartrate (Lopressor) 25 mg BID PO 10/26/19 21:00 10/28/19 09:40 DC 10/28/19 07:23 Metoprolol Tartrate (Lopressor) 50 mg BID PO 10/28/19 21:00 11/10/19 08:18 Miscellaneous (Unresolved Clarification Entry) SEE LABEL COMMENTS DAILY XX 11/02/19 09:00 11/03/19 14:47 DC Miscellaneous (Unresolved Clarification Entry) SEE LABEL COMMENTS DAILY XX 11/08/19 09:00 11/08/19 10:48 DC Nicotine (Nicoderm Cq 14mg) 1 patch DAILY TD 10/26/19 09:00 11/09/19 16:58 DC 11/09/19 08:53 Nicotine (Nicoderm Cq 7 Mg) 1 patch DAILY TD 11/10/19 09:00 11/10/19 08:13 Nitroglycerin (Nitrostat (1/ 150)) 0.4 mg Q5MP PRN SL CHEST PAIN 10/27/19 13:30 10/27/19 15:57 Non-Formulary Medication ( See Comment Field Below ) REMOVE LIDODERM PATCH DAILY@21 XX 11/07/19 21:00 11/07/19 12:17 DC Ondansetron HCl (ZOFRAN INJection) 4 mg Q8HP PRN IV NAUSEA OR VOMITING 10/28/19 10:45 Ondansetron HCl (Zofran Odt) 4 mg Q6HP PRN PO NAUSEA OR VOMITING 10/27/19 13:30 10/29/19 07:10 Pantoprazole Sodium (Protonix) 40 mg DAILY PO 10/27/19 09:00 11/04/19 12:16 DC 11/04/19 08:32 Senna (Senokot) 1 tab QHS PO 10/26/19 21:00 11/04/19 12:13 DC 10/28/19 21:48 Tamsulosin HCl (Flomax) 0.4 mg DAILY PO 10/27/19 09:00 11/10/19 08:17 Tramadol HCl (Ultram) 25 mg Q6H PRN PO SEVERE HEADACHE 10/31/19 11:15 11/04/19 12:14 DC Tramadol HCl (Ultram) 50 mg Q4H PRN PO SEVERE HEADACHE 10/28/19 09:45 10/31/19 11:15 DC 10/30/19 12:32 Tramadol HCl (Ultram) 50 mg Q8H PRN PO SEVERE HEADACHE 10/27/19 12:30 10/28/19 09:40 DC 10/28/19 01:36 Trazodone HCl (Desyrel) 25 mg QHS PO 10/26/19 21:00 10/31/19 11:46 DC 10/30/19 21:23 Trazodone HCl (Desyrel) 50 mg QHS PO 10/31/19 21:00 11/09/19 21:57 TERRANCE PULIDO MD Nov 10, 2019 11:51
[2019-11-10 15:00] VITALS: BP 124/60
[2019-11-10 20:00] VITALS: BP 121/71
[2019-11-10] MEDS: ATORVASTATIN 20 MG TAB PO SCH (21:59)
[2019-11-10] MEDS: traZODone 50 MG TAB PO SCH (21:59)
[2019-11-10] MEDS: LEVEMIR (INSULIN DETEMIR) 1 UNITS/0.01ML SC SCH (22:01)
[2019-11-11 06:00] VITALS: BP 142/68
[2019-11-11] MEDS: IPRATROPIUM 0.5MG/ALBUTEROL 2.5MG INH SOL UD 3ML (DUONEB)(J7620) NEB SCH ×3 (07:08→19:43)
[2019-11-11] MEDS: REMEDY PHYTOPLEX Z-GUARD PASTE 113GM TUBE (FROM STOREROOM PRODUCT) TOP SCH ×3 (09:00→20:10)
[2019-11-11] MEDS: ANALGESIC BALM CRM 120 GM TOP SCH ×3 (09:00→20:10)
[2019-11-11] MEDS: HumaLOG INSULIN (NovoLOG) PER UNIT SC SCH ×4 (09:27→20:09)
[2019-11-11] MEDS: DULoxetine 30 MG CAP (CYMBALTA) PO SCH (09:27)
[2019-11-11] MEDS: ENOXAPARIN 40 MG/0.4 ML SYRINGE (J1650) SC SCH (09:27)
[2019-11-11] MEDS: GABAPENTIN 100 MG CAP PO SCH ×3 (09:27→20:08)
[2019-11-11] MEDS: TAMSULOSIN 0.4 MG CAP PO SCH (09:27)
[2019-11-11] MEDS: ASPIRIN 81 MG ENTERIC TAB PO SCH (09:27)
[2019-11-11] MEDS: FENOFIBRATE 145 MG TAB (TRICOR) PO SCH (09:27)
[2019-11-11] MEDS: ACETAMINOPHEN TAB 650MG DOSE (2X325MG) PO SCH ×3 (09:28→20:08)
[2019-11-11] MEDS: NICOTINE 7 MG/24 HR TRANSDERMAL TD SCH (09:28)
[2019-11-11] MEDS: METOPROLOL TART 50 MG TAB PO SCH ×2 (09:29→20:08)
[2019-11-11] MEDS: **hydrALAZINE HCL** 25 MG TAB PO SCH ×3 (09:29→20:09)
[2019-11-11 15:00] VITALS: BP 143/75
[2019-11-11 19:54] VITALS: BP 155/83
[2019-11-11] MEDS: traZODone 50 MG TAB PO SCH (20:08)
[2019-11-11] MEDS: ATORVASTATIN 20 MG TAB PO SCH (20:08)
[2019-11-11] MEDS: LOPERAMIDE 2 MG CAPLET PO PRN (20:08)
[2019-11-11] MEDS: LEVEMIR (INSULIN DETEMIR) 1 UNITS/0.01ML SC SCH (20:09)
[2019-11-12 06:00] VITALS: BP 131/62
[2019-11-12] MEDS: IPRATROPIUM 0.5MG/ALBUTEROL 2.5MG INH SOL UD 3ML (DUONEB)(J7620) NEB SCH ×3 (07:08→20:11)
[2019-11-12] MEDS: HumaLOG INSULIN (NovoLOG) PER UNIT SC SCH ×4 (08:10→21:00)
[2019-11-12] MEDS: ENOXAPARIN 40 MG/0.4 ML SYRINGE (J1650) SC SCH (08:11)
[2019-11-12] MEDS: NICOTINE 7 MG/24 HR TRANSDERMAL TD SCH (08:11)
[2019-11-12] MEDS: ASPIRIN 81 MG ENTERIC TAB PO SCH (08:11)
[2019-11-12] MEDS: FENOFIBRATE 145 MG TAB (TRICOR) PO SCH (08:11)
[2019-11-12] MEDS: DULoxetine 30 MG CAP (CYMBALTA) PO SCH (08:12)
[2019-11-12] MEDS: ACETAMINOPHEN TAB 650MG DOSE (2X325MG) PO SCH ×3 (08:13→21:05)
[2019-11-12] MEDS: METOPROLOL TART 50 MG TAB PO SCH ×2 (08:14→21:05)
[2019-11-12] MEDS: **hydrALAZINE HCL** 25 MG TAB PO SCH ×3 (08:14→21:04)
[2019-11-12] MEDS: TAMSULOSIN 0.4 MG CAP PO SCH (08:15)
[2019-11-12] MEDS: REMEDY PHYTOPLEX Z-GUARD PASTE 113GM TUBE (FROM STOREROOM PRODUCT) TOP SCH ×3 (08:15→21:00)
[2019-11-12] MEDS: GABAPENTIN 100 MG CAP PO SCH ×3 (08:15→21:05)
[2019-11-12] MEDS: ANALGESIC BALM CRM 120 GM TOP SCH ×3 (09:00→21:00)
[2019-11-12 14:00] VITALS: BP 124/60
[2019-11-12] MEDS: LOPERAMIDE 2 MG CAPLET PO PRN (18:02)
[2019-11-12 20:07] VITALS: BP 124/64
[2019-11-12] MEDS: ATORVASTATIN 20 MG TAB PO SCH (21:04)
[2019-11-12] MEDS: traZODone 50 MG TAB PO SCH (21:05)
[2019-11-12] MEDS: LEVEMIR (INSULIN DETEMIR) 1 UNITS/0.01ML SC SCH (21:06)
[2019-11-13 05:41] VITALS: BP 124/73
[2019-11-13] MEDS: IPRATROPIUM 0.5MG/ALBUTEROL 2.5MG INH SOL UD 3ML (DUONEB)(J7620) NEB SCH ×3 (07:10→19:45)
[2019-11-13] MEDS: HumaLOG INSULIN (NovoLOG) PER UNIT SC SCH ×4 (07:34→20:46)
[2019-11-13] MEDS: ENOXAPARIN 40 MG/0.4 ML SYRINGE (J1650) SC SCH (07:35)
[2019-11-13] MEDS: **hydrALAZINE HCL** 25 MG TAB PO SCH ×3 (07:36→20:46)
[2019-11-13] MEDS: ACETAMINOPHEN TAB 650MG DOSE (2X325MG) PO SCH ×3 (07:36→20:46)
[2019-11-13] MEDS: DULoxetine 30 MG CAP (CYMBALTA) PO SCH (07:36)
[2019-11-13] MEDS: LOPERAMIDE 2 MG CAPLET PO PRN ×2 (07:37→20:45)
[2019-11-13] MEDS: FENOFIBRATE 145 MG TAB (TRICOR) PO SCH (07:37)
[2019-11-13] MEDS: METOPROLOL TART 50 MG TAB PO SCH ×2 (07:37→20:45)
[2019-11-13] MEDS: GABAPENTIN 100 MG CAP PO SCH ×3 (07:37→20:45)
[2019-11-13] MEDS: ASPIRIN 81 MG ENTERIC TAB PO SCH (07:37)
[2019-11-13] MEDS: TAMSULOSIN 0.4 MG CAP PO SCH (07:38)
[2019-11-13] MEDS: NICOTINE 7 MG/24 HR TRANSDERMAL TD SCH (07:42)
[2019-11-13] MEDS: ANALGESIC BALM CRM 120 GM TOP SCH ×3 (07:42→20:47)
[2019-11-13] MEDS: REMEDY PHYTOPLEX Z-GUARD PASTE 113GM TUBE (FROM STOREROOM PRODUCT) TOP SCH ×3 (07:43→20:47)
[2019-11-13 13:59] VITALS: BP 132/64
[2019-11-13 20:00] VITALS: BP 160/80
[2019-11-13] MEDS: ATORVASTATIN 20 MG TAB PO SCH (20:45)
[2019-11-13] MEDS: LEVEMIR (INSULIN DETEMIR) 1 UNITS/0.01ML SC SCH (20:46)
[2019-11-13] MEDS: traZODone 50 MG TAB PO SCH (20:46)
[2019-11-14 05:32] VITALS: BP 156/67
[2019-11-14 06:45] LABS: BASO % 0.2 % (0.0-1.0); EOS # 0.2 10^3/uL (0.0-0.5); EOS % 4.8 % (0.0-3.0); HEMATOCRIT 37.5 % (42.0-52.0); HEMOGLOBIN 12.8 g/dl (13.5-17.5); LYMPH # 1.5 10^3/uL (1.5-5.0); LYMPH % 33.6 % (24.0-44.0); MEAN CORPUSCULAR HEMOGLOBIN 29.7 pg (27.0-33.0); MEAN CORPUSCULAR HGB CONC 34.1 g/dl (32.0-36.5); MONO # 0.4 10^3/uL (0.0-0.8); MONO % 8.3 % (0.0-5.0); NEUTROPHILS # 2.4 10^3/uL (1.5-8.5); NEUTROPHILS % 52.9 % (36.0-66.0); PLATELET COUNT, AUTOMATED 200 10^3/uL (150-450); RED BLOOD COUNT 4.31 10^6/uL (4.30-6.10); WHITE BLOOD COUNT 4.6 10^3/uL (4.0-10.0)
[2019-11-14 07:11] LABS: BLOOD UREA NITROGEN 15 MG/DL (7-18); CALCIUM LEVEL 8.8 MG/DL (8.5-10.1); CARBON DIOXIDE LEVEL 29 MEQ/L (21-32); CHLORIDE LEVEL 107 MEQ/L (98-107); CREATININE FOR GFR 0.87 MG/DL (0.70-1.30); GLOMERULAR FILTRATION RATE > 60.0 (>60); GLUCOSE, FASTING 181 MG/DL (70-100); POTASSIUM SERUM 3.8 MEQ/L (3.5-5.1); SODIUM LEVEL 141 MEQ/L (136-145)
[2019-11-14] MEDS: IPRATROPIUM 0.5MG/ALBUTEROL 2.5MG INH SOL UD 3ML (DUONEB)(J7620) NEB SCH ×3 (07:16→19:23)
[2019-11-14] MEDS: NICOTINE 7 MG/24 HR TRANSDERMAL TD SCH (08:11)
[2019-11-14] MEDS: GABAPENTIN 100 MG CAP PO SCH ×3 (08:11→21:58)
[2019-11-14] MEDS: LOPERAMIDE 2 MG CAPLET PO PRN ×2 (08:11→22:15)
[2019-11-14] MEDS: ENOXAPARIN 40 MG/0.4 ML SYRINGE (J1650) SC SCH (08:11)
[2019-11-14] MEDS: ASPIRIN 81 MG ENTERIC TAB PO SCH (08:11)
[2019-11-14] MEDS: ACETAMINOPHEN TAB 650MG DOSE (2X325MG) PO SCH ×3 (08:11→22:02)
[2019-11-14] MEDS: METOPROLOL TART 50 MG TAB PO SCH ×2 (08:11→21:58)
[2019-11-14] MEDS: **hydrALAZINE HCL** 25 MG TAB PO SCH ×3 (08:12→21:59)
[2019-11-14] MEDS: DULoxetine 30 MG CAP (CYMBALTA) PO SCH (08:12)
[2019-11-14] MEDS: FENOFIBRATE 145 MG TAB (TRICOR) PO SCH (08:12)
[2019-11-14] MEDS: TAMSULOSIN 0.4 MG CAP PO SCH (08:12)
[2019-11-14] MEDS: HumaLOG INSULIN (NovoLOG) PER UNIT SC SCH ×4 (08:13→21:00)
[2019-11-14] MEDS: ANALGESIC BALM CRM 120 GM TOP SCH ×3 (08:14→21:00)
[2019-11-14] MEDS: REMEDY PHYTOPLEX Z-GUARD PASTE 113GM TUBE (FROM STOREROOM PRODUCT) TOP SCH ×3 (08:15→21:00)
--- NOTE | 2019-11-14 11:11 | IPNPDOC ---
Subjective Date Seen The patient was seen on 11/10/19. Subjective Chief Complaint/HPI Mr Bashir is a 44 year old male who is admitted to ARU following R MCA stroke on . Pt is seen sitting up in his chair, talking to on the telephone. He reported he is doing very well, he is impressed with the rehab team and is please with his progress. He denied any new or worsening issues at this time. See ROS. General: Reports: Normal Appetite; Denies: Chills, Night Sweats, Fatigue, Malaise Constitutional: Denies: Chills, Fever, Night Sweats Eyes: Denies: Pain, Vision change ENT: Denies: Head Aches Skin: Denies: Rash Pulmonary: Denies: Dyspnea, Cough Cardiovascular: Denies: Chest Pain, Palpitations, Orthopnea, Paroxysmal Noc. Dyspnea, Lt Headedness Gastrointestinal: Denies: Nausea, Vomiting, Abdominal Pain, Diarrhea, Constipation Genitourinary: Denies: Dysuria Hematologic: Denies: Bruising Musculoskeletal: Denies: Neck Pain, Back Pain, Joint Pain, Muscle Pain, Spasms Neurological: Denies: Weakness, Numbness, Change in speech, Confusion Objective Physical Examination General Exam: Positive: Alert, Cooperative, No Acute Distress Eye Exam: Positive: PERRLA, Conjunctiva & lids normal, EOMI; Negative: Sclera icteric ENT Exam: Positive: Atraumatic Neck Exam: Positive: Supple; Negative: thyromegaly Chest Exam: Positive: Clear to auscultation, Normal air movement Heart Exam: Positive: Rate Normal, Regular Rhythm, Normal S1, Normal S2; Negative: Murmurs, Rubs Abdomen Exam: Positive: Normal bowel sounds, Soft; Negative: Tenderness Extremity Exam: Negative: Clubbing, Cyanosis, Edema Skin Exam: Positive: Nl turgor and temperature Neuro Exam: Positive: Cranial Nerves 3-12 NL; Negative: Strength at 5/5 X4 ext (4/5 strength R upper and lower extremities; flaccid LUE and LLE ) Psych Exam: Positive: Mood NL, Oriented x 3 Assessment /Plan Assessment Mr Bashir is a 44 year old male who is admitted to ARU following R MCA stroke on . He continues to experience L sided hemiparesis as a sequela. Pt has a PMHx which includes: DM, HTN and nicotine dependence. #1. Right-sided MCA stroke, with ongoing left-sided paresis -s/p tPA - Continues ASA and statin -Tight BP control -Continued acute rehab per chief counsel #2. Severe, episodic HAs - currently resolved with consistent use of analgesics as directed #3. HTN - Currently Hydralazine and Lopressor with stable BPs #4. DM - continue with Levemir and ISS with FBS achs - consistent carbohydrate diet #5. HLD/HTD - Continue statin and fibrate #6. History of dysphagia following stroke -Improved, now level 4 solids. DVT prophylaxis: Lovenox Plan/VTE VTE Prophylaxis Ordered?: Yes (Lovenox ) VS, I&O, 24H, Fishbone Vital Signs/I&O Vital Signs Date Time Temp Pulse Resp B/P (MAP) Pulse Ox O2 Delivery O2 Flow Rate FiO2 11/14/19 08:12 156/67 11/14/19 08:11 78 11/14/19 05:32 97.4 16 93 Room Air I&O- Last 24 Hours up to 6 AM 11/14/19 06:00 Intake Total 1040 ml Output Total 700 ml Balance 340 ml Laboratory Data 24H LABS Laboratory Tests 2 11/13/19 11:38: Bedside Glucose (Misc Panel) 139H 11/13/19 16:40: Bedside Glucose (Misc Panel) 198H 11/13/19 20:03: Bedside Glucose (Misc Panel) 200H 11/14/19 05:16: Bedside Glucose (Misc Panel) 184H 11/14/19 06:22: Immature Granulocyte % (Auto) 0.2, Neutrophils (%) (Auto) 52.9, Lymphocytes (%) (Auto) 33.6, Monocytes (%) (Auto) 8.3H, Eosinophils (%) (Auto) 4.8H, Basophils (%) (Auto) 0.2, Neutrophils # (Auto) 2.4, Lymphocytes # (Auto) 1.5, Monocytes # (Auto) 0.4, Eosinophils # (Auto) 0.2, Basophils # (Auto) 0.0, Nucleated Red Blood Cells % (auto) 0.0, Anion Gap 5L, Glomerular Filtration Rate > 60.0, Calcium Level 8.8 CBC/BMP Laboratory Tests 11/14/19 06:22 Microbiology Microbiology 2/29/20 Stool Occult Blood (KATARINA) - Final, Complete GUERO ZHENG PA-C Nov 14, 2019 11:11
--- NOTE | 2019-11-14 11:19 | IPNPDOC ---
Text Note Date of Service The patient was seen on 11/14/19. NOTE Chief Complaint/HPI Mr Bashir is a 44 year old male who is admitted to ARU following R MCA stroke on . Pt is seen sitting up in his chair, this morning. He is excited as he has spoken to a brother he didn't know he had over the weekend. He has also found out some of his father's medical Hx - father 2018, following his second stroke, attributable to what sound like A-fib and medication/lifestyle non- compliance. Pt stated he has quit smoking, he plans to institute the necessary lifestyle changes as he wants to be there for his family. General: Reports: Normal Appetite; Denies: Chills, Night Sweats, Fatigue, Malaise Constitutional: Denies: Chills, Fever, Night Sweats Eyes: Denies: Pain, Vision change ENT: Denies: Head Aches Skin: Denies: Rash Pulmonary: Denies: Dyspnea, Cough Cardiovascular: Denies: Chest Pain, Palpitations, Orthopnea, Paroxysmal Noc. Dyspnea, Lt Headedness Gastrointestinal: Denies: Nausea, Vomiting, Abdominal Pain, Diarrhea, Constipation Genitourinary: Denies: Dysuria Hematologic: Denies: Bruising Musculoskeletal: Denies: Neck Pain, Back Pain, Joint Pain, Muscle Pain, Spasms Neurological: Denies: Weakness, Numbness, Change in speech, Confusion Objective Physical Examination General Exam: Positive: Alert, Cooperative, No Acute Distress Eye Exam: Positive: PERRLA, Conjunctiva & lids normal; Negative: Sclera icteric ENT Exam: Positive: Atraumatic Neck Exam: Positive: Supple; Negative: thyromegaly Chest Exam: Positive: Clear to auscultation, Normal air movement Heart Exam: Positive: Rate Normal, Regular Rhythm, Normal S1, Normal S2; Negative: Murmurs, Rubs Abdomen Exam: Positive: Normal bowel sounds, Soft; Negative: Tenderness Extremity Exam: Negative: Clubbing, Cyanosis, Edema Skin Exam: Positive: Nl turgor and temperature Negative: moles/lentigo/SKs widely distributed across the back Neuro Exam: Positive: Cranial Nerves 3-12 NL; Negative: Strength at 5/5 X4 ext (4/5 strength R upper and lower extremities; flaccid LUE and LLE ) Psych Exam: Positive: Mood NL, Oriented x 3 Assessment /Plan Assessment Mr Bashir is a 44 year old male who is admitted to ARU following R MCA stroke on . He continues to experience L sided hemiparesis as a sequela. Pt has a PMHx which includes: DM, HTN and nicotine dependence. #1. Right-sided MCA stroke, with ongoing left-sided paresis -s/p tPA - Continues ASA and statin -Tight BP control -Continued acute rehab per supervisor [facility] #2. Severe, episodic HAs - currently resolved with consistent use of analgesics as directed #3. HTN - Currently Hydralazine and Lopressor with stable BPs #4. DM - continue with Levemir and ISS with FBS achs - consistent carbohydrate diet #5. HLD/HTD - Continue statin and fibrate #6. History of dysphagia following stroke -Improved, now level 4 solids. #7. Moles/lentigo/SKs -Diffuse across the back and trunk -Recommend dermatology f/u outpatient DVT prophylaxis: Lovenox Plan/VTE VTE Prophylaxis Ordered?: Yes (Lovenox ) VS,Fishbone, I+O VS, Fishbone, I+O Laboratory Tests 11/14/19 06:22 Vital Signs Date Time Temp Pulse Resp B/P (MAP) Pulse Ox O2 Delivery O2 Flow Rate FiO2 11/14/19 08:12 156/67 11/14/19 08:11 78 11/14/19 05:32 97.4 16 93 Room Air I&O- Last 24 Hours up to 6 AM 11/14/19 06:00 Intake Total 1040 ml Output Total 700 ml Balance 340 ml GUERO ZHENG PA-C Nov 14, 2019 11:19
[2019-11-14 14:00] VITALS: BP 137/65
[2019-11-14] MEDS: LEVEMIR (INSULIN DETEMIR) 1 UNITS/0.01ML SC SCH (21:58)
[2019-11-14] MEDS: ATORVASTATIN 20 MG TAB PO SCH (21:58)
[2019-11-14] MEDS: traZODone 50 MG TAB PO SCH (21:58)
[2019-11-14 22:00] VITALS: BP 131/62
[2019-11-15 06:00] VITALS: BP 133/68
[2019-11-15] MEDS: IPRATROPIUM 0.5MG/ALBUTEROL 2.5MG INH SOL UD 3ML (DUONEB)(J7620) NEB SCH ×4 (08:29→19:50)
[2019-11-15] MEDS: ENOXAPARIN 40 MG/0.4 ML SYRINGE (J1650) SC SCH (08:34)
[2019-11-15] MEDS: HumaLOG INSULIN (NovoLOG) PER UNIT SC SCH ×5 (08:34→21:00)
[2019-11-15] MEDS: NICOTINE 7 MG/24 HR TRANSDERMAL TD SCH (08:35)
[2019-11-15] MEDS: METOPROLOL TART 50 MG TAB PO SCH ×2 (08:36→21:11)
[2019-11-15] MEDS: DULoxetine 30 MG CAP (CYMBALTA) PO SCH (08:36)
[2019-11-15] MEDS: ACETAMINOPHEN TAB 650MG DOSE (2X325MG) PO SCH ×3 (08:36→21:10)
[2019-11-15] MEDS: **hydrALAZINE HCL** 25 MG TAB PO SCH ×3 (08:36→21:11)
[2019-11-15] MEDS: ASPIRIN 81 MG ENTERIC TAB PO SCH (08:36)
[2019-11-15] MEDS: TAMSULOSIN 0.4 MG CAP PO SCH (08:37)
[2019-11-15] MEDS: ANALGESIC BALM CRM 120 GM TOP SCH ×3 (08:37→21:00)
[2019-11-15] MEDS: FENOFIBRATE 145 MG TAB (TRICOR) PO SCH (08:37)
[2019-11-15] MEDS: REMEDY PHYTOPLEX Z-GUARD PASTE 113GM TUBE (FROM STOREROOM PRODUCT) TOP SCH ×3 (08:37→21:00)
[2019-11-15] MEDS: GABAPENTIN 100 MG CAP PO SCH ×3 (08:37→21:11)
[2019-11-15 14:00] VITALS: BP 128/58
--- NOTE | 2019-11-15 16:16 | IPNPDOC ---
PM&R Progress Note DATE OF SERVICE: Nov 15, 2019 [facility] Worker Progress Note Subjective: Patient reporting his neck sensation has not returned and he is in good spirits. REVIEW OF SYSTEMS: The following is a completed review of systems and has been reviewed. Review of systems otherwise unremarkable. PAIN: Patient self reports no pain EYES: No recent vision changes EARS, NOSE, & THROAT: +dysphagia (improving) CARDIOVASCULAR: Denies chest pain or palpitations PULMONARY: Denies shortness of breath GASTROINTESTINAL: Denies constipation/diarrhea GENITOURINARY: denies dysuria MUSCULOSKELETAL: left sided weakness NEUROLOGICAL:left sided paresis HEMATOLOGICAL: denies easy bruising SKIN:scattered shiny erythematous and papular lesions PSYCHIATRIC: Unremarkable All other review of systems found to be negative. PHYSICAL EXAMINATION: VITAL SIGNS: Please see below. GENERAL: Pleasant and cooperative. No acute distress. HEENT: PERRL. Extraocular movements intact. Clear conjunctiva CARDIOVASCULAR: Regular rate and rhythm. No murmurs, rubs, or gallops LUNGS: Clear to auscultation bilaterally. no wheezes. No rhonchi ABDOMEN: Soft, nontender, nondistended. Positive bowel sounds. Normal active bowel sounds NEUROLOGICAL: Alert and oriented times three. Cranial nerves II through XII grossly intact. decreased sensation to light touch on LUE and LLE with left sided inattention EXTREMITIES: 5\5 strength right upper extremities. Left 3/5 elbow flexors, 2/5 elbow extensors, 3/5 wrist extension, loom inspector 2/5 5\5 strength right lower extremity. 3/5 left hip flexors, 4/5 knee extensors/ankle DF/EHL. PF (-) SLR on the left, no groin pain with left hip internal rotation SKIN: sacral fold with healed incision, left elbow effusion, bilat anterior shins with shiny erythematous plaques with yellow pigmented papules, scattered papular lesions ASSESSMENT:44-year-old M with past medical history of DM who presents status post right MCA territory infarct PLAN: 1. 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 Neuro: s/p right MCA infarct having received tpa with left sided paresis and neglect -c/u ASA and statin for secondary stroke prevention, BP control -prozac for motor recovery - right sided headache, suspect nicotine and caffeine withdrawal as patient reports he had >10 cups of coffee a day, headaches resolved since initiation of Cymbalta and gabapentin-resolved, c/u Nicotine patch taper -CTH on 10-27-19 negative for new infarct, no new deficit on exam -neck paresthesias likely due to diabetic polyneuropathy 3. Cardiac: hx of HTN-c/u metoprolol and hydralazine, c/u monitor-medicine consulted to assist in management -HLD with hypertriglyceridemia with scattered Xanthoma lesions-c/u statin and Tricor 4. resp: encourage incentive spirometry, monitor for infection -c/u duonebs 5. Endo: pmh DM c/u Levemir and ISS, adjust prn 6. : with with urinary retention at [facility] started on Flomax, will c/u- monitor PVRs, voiding well -erectile dysfunction, causes likely multi-fold, will encourage patient to stop SSRI after total of 3 months, f/u with urology on d/c and avoid use of Viagra until at least 6 months following stroke 7. DVT ppx: Lovenox and TEDs, dopplers negative x2 8. GI ppx: holding Protonix, Colace, senna as can all contribute to loose stools- FOBT negative -Imodium prn loose stools 9. Pain: patient with right sided headaches that have resolved, c/u Cymbalta and gabapentin dosing -suspect left biceps femoris tendinitis, improving, c/u menthol salicylate rub, encourage stretching in therapy 10. Psych: trazodone 50mg qHS 11. Dispo: 11-22-19 to home, progressing towards goals Allergies Coded Allergies: lactose (Verified Adverse Reaction, Mild, GI UPSET, 10/26/19) Vital Signs Vital Signs Date Time Temp Pulse Resp B/P (MAP) Pulse Ox O2 Delivery O2 Flow Rate FiO2 11/15/19 14:00 97.9 85 20 128/58 (81) 96 Room Air Laboratory Data Labs 24H Laboratory Tests 2 11/14/19 16:35: Bedside Glucose (Misc Panel) 106H 11/14/19 19:48: Bedside Glucose (Misc Panel) 225H 11/15/19 05:29: Bedside Glucose (Misc Panel) 154H 11/15/19 11:24: Bedside Glucose (Misc Panel) 140H Microbiology Microbiology 11/05/19 Stool Occult Blood (KATARINA) - Final, Complete Current Medications Current Medications Current Medications Medications (Trade) Dose Ordered Sig/Anthony Route PRN Reason Start Time Stop Time Status Last Admin Dose Admin Acetaminophen (Tylenol Tab) 650 mg Q4HP PRN PO fever/MILD PAIN (PS 1-4) 10/26/19 14:00 10/26/19 17:07 DC Acetaminophen (Tylenol Tab) 650 mg TID PO 10/26/19 16:00 11/15/19 08:36 Acetaminophen/ Butalbital/ Caffeine (Fioricet) 1 ea Q4HP PRN PO HEADACHE 10/26/19 17:15 10/29/19 06:00 Albuterol/ Ipratropium (Duoneb (Ipr 0.5mg/Alb 2.5mg)) 3 ml RTID NEB 10/26/19 20:00 11/15/19 15:34 Aspirin (Aspirin) 325 mg STAT STAT PO 10/27/19 13:16 10/27/19 13:21 DC 10/27/19 13:26 Aspirin (Ecotrin) 81 mg DAILY PO 10/27/19 09:00 11/15/19 08:36 Atorvastatin Calcium (Lipitor) 80 mg QHS PO 10/27/19 21:00 11/14/19 21:58 Bisacodyl (Dulcolax Suppository) 10 mg DAILYPRN PRN [place] BOWEL CARE/CONSTIPATION 10/27/19 10:45 Dextrose (Dextrose 50%) 25 ml ASDIRECTED PRN IV SEE LABEL COMMENTS 10/26/19 14:00 Docusate Sodium (Colace) 100 mg BID PO 10/26/19 21:00 11/04/19 12:13 DC 11/01/19 07:34 Duloxetine HCl (Cymbalta) 30 mg DAILY PO 10/29/19 09:00 11/15/19 08:36 Duloxetine HCl (Cymbalta) 30 mg DAILY PO 10/30/19 09:00 10/29/19 10:05 DC Enoxaparin Sodium (Lovenox) 40 mg DAILY SC 10/27/19 09:00 11/15/19 08:34 Fenofibrate (Tricor) 145 mg DAILY PO 10/27/19 09:00 11/15/19 08:37 Fluoxetine HCl (PROzac) 20 mg DAILY PO 10/27/19 09:00 10/29/19 09:29 DC 10/29/19 08:06 Gabapentin (Neurontin) 100 mg TID PO 10/29/19 09:00 10/31/19 11:46 DC 10/31/19 09:12 Gabapentin (Neurontin) 200 mg TID PO 10/31/19 16:00 11/15/19 08:37 Glucagon (Glucagon) 1 mg ASDIRECTED PRN SC SEE LABEL COMMENTS 10/26/19 14:00 Glucose (Glucose) 16 GM ASDIRECTED PRN PO SEE LABEL COMMENTS 10/26/19 14:00 Home Med (Med Rec Complete!) ASDIRECTED XX 10/26/19 15:45 10/26/19 15:51 DC Hydralazine HCl (Apresoline) 25 mg TID PO 10/28/19 09:00 11/15/19 08:36 Insulin Detemir (Levemir Insulin) 5 units QHS SC 10/26/19 21:00 10/27/19 09:52 DC 10/26/19 21:59 Insulin Detemir (Levemir Insulin) 8 units QHS SC 10/27/19 21:00 11/02/19 10:45 DC 11/01/19 21:09 Insulin Detemir (Levemir Insulin) 10 units QHS SC 11/02/19 21:00 11/14/19 21:58 Insulin Human Lispro (HumaLOG INSULIN) SEE PROTOCOL TABLE AC SC 10/26/19 17:30 11/15/19 08:34 Insulin Human Lispro (HumaLOG INSULIN) SEE PROTOCOL TABLE QHS SC 10/26/19 21:00 11/11/19 20:09 Lidocaine (Lidoderm Patch) 2 patch DAILY TD 11/07/19 09:00 11/07/19 12:15 DC 11/07/19 11:56 Loperamide HCl (Imodium) 2 mg ASDIRECTED PRN PO DIARRHEA 11/04/19 12:15 11/14/19 22:15 Magnesium Hydroxide (Milk Of Magnesia) 30 ml DAILYPRN PRN PO CONSTIPATION 10/26/19 14:00 Magnesium Oxide (Mag-Ox) 400 mg DAILY PO 10/27/19 09:00 11/04/19 12:13 DC 11/04/19 08:32 Menthol/Methyl Salicylate (Bengay Cream) 1 dose TID TOP 11/07/19 16:00 11/11/19 20:10 Metoprolol Tartrate (Lopressor) 25 mg BID PO 10/26/19 21:00 10/28/19 09:40 DC 10/28/19 07:23 Metoprolol Tartrate (Lopressor) 50 mg BID PO 10/28/19 21:00 11/15/19 08:36 Miscellaneous (Unresolved Clarification Entry) SEE LABEL COMMENTS DAILY XX 11/02/19 09:00 11/03/19 14:47 DC Miscellaneous (Unresolved Clarification Entry) SEE LABEL COMMENTS DAILY XX 11/08/19 09:00 11/08/19 10:48 DC Nicotine (Nicoderm Cq 14mg) 1 patch DAILY TD 10/26/19 09:00 11/09/19 16:58 DC 11/09/19 08:53 Nicotine (Nicoderm Cq 7 Mg) 1 patch DAILY TD 11/10/19 09:00 11/15/19 08:35 Nitroglycerin (Nitrostat (1/ 150)) 0.4 mg Q5MP PRN SL CHEST PAIN 10/27/19 13:30 10/27/19 15:57 Non-Formulary Medication ( See Comment Field Below ) REMOVE LIDODERM PATCH DAILY@21 XX 11/07/19 21:00 11/07/19 12:17 DC Ondansetron HCl (ZOFRAN INJection) 4 mg Q8HP PRN IV NAUSEA OR VOMITING 10/28/19 10:45 Ondansetron HCl (Zofran Odt) 4 mg Q6HP PRN PO NAUSEA OR VOMITING 10/27/19 13:30 10/29/19 07:10 Pantoprazole Sodium (Protonix) 40 mg DAILY PO 10/27/19 09:00 11/04/19 12:16 DC 11/04/19 08:32 Senna (Senokot) 1 tab QHS PO 10/26/19 21:00 11/04/19 12:13 DC 10/28/19 21:48 Tamsulosin HCl (Flomax) 0.4 mg DAILY PO 10/27/19 09:00 11/15/19 08:37 Tramadol HCl (Ultram) 25 mg Q6H PRN PO SEVERE HEADACHE 10/31/19 11:15 11/04/19 12:14 DC Tramadol HCl (Ultram) 50 mg Q4H PRN PO SEVERE HEADACHE 10/28/19 09:45 10/31/19 11:15 DC 10/30/19 12:32 Tramadol HCl (Ultram) 50 mg Q8H PRN PO SEVERE HEADACHE 10/27/19 12:30 10/28/19 09:40 DC 10/28/19 01:36 Trazodone HCl (Desyrel) 25 mg QHS PO 10/26/19 21:00 10/31/19 11:46 DC 10/30/19 21:23 Trazodone HCl (Desyrel) 50 mg QHS PO 10/31/19 21:00 11/14/19 21:58 TERRANCE PULIDO MD Nov 15, 2019 16:16
[2019-11-15 21:00] VITALS: BP 127/78
[2019-11-15] MEDS: traZODone 50 MG TAB PO SCH (21:11)
[2019-11-15] MEDS: ATORVASTATIN 20 MG TAB PO SCH (21:11)
[2019-11-15] MEDS: LOPERAMIDE 2 MG CAPLET PO PRN (21:11)
[2019-11-15] MEDS: LEVEMIR (INSULIN DETEMIR) 1 UNITS/0.01ML SC SCH (21:12)
[2019-11-16 06:00] VITALS: BP 127/62
[2019-11-16 07:09] LABS: BASO % 0.3 % (0.0-1.0); EOS # 0.3 10^3/uL (0.0-0.5); HEMATOCRIT 40.9 % (42.0-52.0); LYMPH # 1.7 10^3/uL (1.5-5.0); LYMPH % 28.4 % (24.0-44.0); MEAN CORPUSCULAR HEMOGLOBIN 29.7 pg (27.0-33.0); MEAN CORPUSCULAR HGB CONC 34.2 g/dl (32.0-36.5); MEAN CORPUSCULAR VOLUME 86.7 fl (80.0-96.0); MONO # 0.5 10^3/uL (0.0-0.8); MONO % 7.9 % (0.0-5.0); NEUTROPHILS # 3.5 10^3/uL (1.5-8.5); NEUTROPHILS % 58.1 % (36.0-66.0); PLATELET COUNT, AUTOMATED 240 10^3/uL (150-450); RED BLOOD COUNT 4.72 10^6/uL (4.30-6.10)
[2019-11-16] MEDS: IPRATROPIUM 0.5MG/ALBUTEROL 2.5MG INH SOL UD 3ML (DUONEB)(J7620) NEB SCH ×3 (07:09→19:41)
[2019-11-16 07:34] LABS: BLOOD UREA NITROGEN 17 MG/DL (7-18); CALCIUM LEVEL 8.7 MG/DL (8.5-10.1); CARBON DIOXIDE LEVEL 27 MEQ/L (21-32); CHLORIDE LEVEL 109 MEQ/L (98-107); CREATININE FOR GFR 0.92 MG/DL (0.70-1.30); GLOMERULAR FILTRATION RATE > 60.0 (>60); GLUCOSE, FASTING 156 MG/DL (70-100); SODIUM LEVEL 141 MEQ/L (136-145)
[2019-11-16] MEDS: ASPIRIN 81 MG ENTERIC TAB PO SCH (08:12)
[2019-11-16] MEDS: LOPERAMIDE 2 MG CAPLET PO PRN (08:12)
[2019-11-16] MEDS: TAMSULOSIN 0.4 MG CAP PO SCH (08:12)
[2019-11-16] MEDS: GABAPENTIN 100 MG CAP PO SCH ×2 (08:12→20:29)
[2019-11-16] MEDS: **hydrALAZINE HCL** 25 MG TAB PO SCH ×3 (08:12→20:29)
[2019-11-16] MEDS: DULoxetine 30 MG CAP (CYMBALTA) PO SCH (08:12)
[2019-11-16] MEDS: ACETAMINOPHEN TAB 650MG DOSE (2X325MG) PO SCH ×3 (08:13→20:28)
[2019-11-16] MEDS: NICOTINE 7 MG/24 HR TRANSDERMAL TD SCH (08:13)
[2019-11-16] MEDS: FENOFIBRATE 145 MG TAB (TRICOR) PO SCH (08:13)
[2019-11-16] MEDS: ENOXAPARIN 40 MG/0.4 ML SYRINGE (J1650) SC SCH (08:13)
[2019-11-16] MEDS: HumaLOG INSULIN (NovoLOG) PER UNIT SC SCH ×4 (08:14→20:29)
[2019-11-16] MEDS: ANALGESIC BALM CRM 120 GM TOP SCH ×3 (08:14→20:29)
[2019-11-16] MEDS: METOPROLOL TART 50 MG TAB PO SCH ×2 (08:14→20:29)
[2019-11-16] MEDS: REMEDY PHYTOPLEX Z-GUARD PASTE 113GM TUBE (FROM STOREROOM PRODUCT) TOP SCH ×3 (08:15→20:30)
[2019-11-16 14:00] VITALS: BP 125/56
--- NOTE | 2019-11-16 16:31 | IPNPDOC ---
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 he reports taking Immodium almost daily which is helping with his IBS. REVIEW OF SYSTEMS: The following is a completed review of systems and has been reviewed. Review of systems otherwise unremarkable. PAIN: Patient self reports no pain EYES: No recent vision changes EARS, NOSE, & THROAT: +dysphagia (improving) CARDIOVASCULAR: Denies chest pain or palpitations PULMONARY: Denies shortness of breath GASTROINTESTINAL: Denies constipation/diarrhea GENITOURINARY: denies dysuria MUSCULOSKELETAL: left sided weakness NEUROLOGICAL:left sided paresis HEMATOLOGICAL: denies easy bruising SKIN:scattered shiny erythematous and papular lesions PSYCHIATRIC: Unremarkable All other review of systems found to be negative. PHYSICAL EXAMINATION: VITAL SIGNS: Please see below. GENERAL: Pleasant and cooperative. No acute distress. HEENT: PERRL. Extraocular movements intact. Clear conjunctiva CARDIOVASCULAR: Regular rate and rhythm. No murmurs, rubs, or gallops LUNGS: Clear to auscultation bilaterally. no wheezes. No rhonchi ABDOMEN: Soft, nontender, nondistended. Positive bowel sounds. Normal active bowel sounds NEUROLOGICAL: Alert and oriented times three. Cranial nerves II through XII grossly intact. decreased sensation to light touch on LUE and LLE with left sided inattention EXTREMITIES: 5\5 strength right upper extremities. Left 3/5 elbow flexors, 2/5 elbow extensors, 3/5 wrist extension, electronic security technician 2/5 5\5 strength right lower extremity. 3/5 left hip flexors, 4/5 knee exten sors/ankle DF/EHL. PF (-) SLR on the left, no groin pain with left hip internal rotation (+) bilat LE edema L>R SKIN: sacral fold with healed incision, left elbow effusion, bilat anterior shins with shiny erythematous plaques with yellow pigmented papules, scattered papular lesions ASSESSMENT:44-year-old M with past medical history of DM who presents status post right MCA territory infarct PLAN: 1. 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 Neuro: s/p right MCA infarct having received tpa with left sided paresis and neglect -c/u ASA and statin for secondary stroke prevention, BP control -prozac for motor recovery - right sided headache, suspect nicotine and caffeine withdrawal as patient reports he had >10 cups of coffee a day, headaches resolved since initiation of Cymbalta and gabapentin-resolved, c/u Nicotine patch taper -CTH on 10-27-19 negative for new infarct, no new deficit on exam -neck paresthesias likely due to diabetic polyneuropathy 3. Cardiac: hx of HTN-c/u metoprolol and hydralazine, c/u monitor-medicine consulted to assist in management -HLD with hypertriglyceridemia with scattered Xanthoma lesions-c/u statin and Tricor -+peripheral edema on today's exam, will lower gabapentin dosing and start daily Lasix 20mg 4. resp: encourage incentive spirometry, monitor for infection -c/u duonebs 5. Endo: pmh DM c/u Levemir and ISS, adjust prn 6. : with with urinary retention at [facility] started on Flomax, will c/u- monitor PVRs, voiding well -erectile dysfunction, causes likely multi-fold, will encourage patient to stop SSRI after total of 3 months, f/u with urology on d/c and avoid use of Viagra until at least 6 months following stroke 7. DVT ppx: Lovenox and TEDs, dopplers negative x2 8. GI ppx: holding Protonix, Colace, senna as can all contribute to loose stools- FOBT negative -Imodium prn loose stools 9. Pain: patient with right sided headaches that have resolved, c/u Cymbalta and gabapentin dosing -suspect left biceps femoris tendinitis, improving, c/u menthol salicylate rub, encourage stretching in therapy 10. Psych: trazodone 50mg qHS 11. Dispo: 11-22-19 to home, progressing towards goals Allergies Coded Allergies: lactose (Verified Adverse Reaction, Mild, GI UPSET, 10/26/19) Vital Signs Vital Signs Date Time Temp Pulse Resp B/P (MAP) Pulse Ox O2 Delivery O2 Flow Rate FiO2 11/16/19 14:00 97.5 85 17 125/56 (79) 94 Room Air Laboratory Data CBC/BMP Laboratory Tests 11/16/19 06:46 Labs 24H Laboratory Tests 2 11/15/19 16:28: Bedside Glucose (Misc Panel) 174H 11/15/19 20:28: Bedside Glucose (Misc Panel) 228H 11/16/19 06:02: Bedside Glucose (Misc Panel) 162H 11/16/19 06:46: Immature Granulocyte % (Auto) 0.3, Neutrophils (%) (Auto) 58.1, Lymphocytes (%) (Auto) 28.4, Monocytes (%) (Auto) 7.9H, Eosinophils (%) (Auto) 5.0H, Basophils (%) (Auto) 0.3, Neutrophils # (Auto) 3.5, Lymphocytes # (Auto) 1.7, Monocytes # (Auto) 0.5, Eosinophils # (Auto) 0.3, Basophils # (Auto) 0.0, Nucleated Red Blood Cells % (auto) 0.0, Anion Gap 5L, Glomerular Filtration Rate > 60.0, Calcium Level 8.7 11/16/19 11:31: Bedside Glucose (Misc Panel) 96 11/16/19 16:19: Bedside Glucose (Misc Panel) 171H Current Medications Current Medications Current Medications Medications (Trade) Dose Ordered Sig/Anthony Route PRN Reason Start Time Stop Time Status Last Admin Dose Admin Acetaminophen (Tylenol Tab) 650 mg Q4HP PRN PO fever/MILD PAIN (PS 1-4) 10/26/19 14:00 10/26/19 17:07 DC Acetaminophen (Tylenol Tab) 650 mg TID PO 10/26/19 16:00 11/16/19 08:13 Acetaminophen/ Butalbital/ Caffeine (Fioricet) 1 ea Q4HP PRN PO HEADACHE 10/26/19 17:15 10/29/19 06:00 Albuterol/ Ipratropium (Duoneb (Ipr 0.5mg/Alb 2.5mg)) 3 ml RTID NEB 10/26/19 20:00 11/16/19 15:06 Aspirin (Aspirin) 325 mg STAT STAT PO 10/27/19 13:16 10/27/19 13:21 DC 10/27/19 13:26 Aspirin (Ecotrin) 81 mg DAILY PO 10/27/19 09:00 11/16/19 08:12 Atorvastatin Calcium (Lipitor) 80 mg QHS PO 10/27/19 21:00 11/15/19 21:11 Bisacodyl (Dulcolax Suppository) 10 mg DAILYPRN PRN [place] BOWEL CARE/CONSTIPATION 10/27/19 10:45 Dextrose (Dextrose 50%) 25 ml ASDIRECTED PRN IV SEE LABEL COMMENTS 10/26/19 14:00 Docusate Sodium (Colace) 100 mg BID PO 10/26/19 21:00 11/04/19 12:13 DC 11/01/19 07:34 Duloxetine HCl (Cymbalta) 30 mg DAILY PO 10/29/19 09:00 11/16/19 08:12 Duloxetine HCl (Cymbalta) 30 mg DAILY PO 10/30/19 09:00 10/29/19 10:05 DC Enoxaparin Sodium (Lovenox) 40 mg DAILY SC 10/27/19 09:00 11/16/19 08:13 Fenofibrate (Tricor) 145 mg DAILY PO 10/27/19 09:00 11/16/19 08:13 Fluoxetine HCl (PROzac) 20 mg DAILY PO 10/27/19 09:00 10/29/19 09:29 DC 10/29/19 08:06 Gabapentin (Neurontin) 100 mg TID PO 10/29/19 09:00 10/31/19 11:46 DC 10/31/19 09:12 Gabapentin (Neurontin) 200 mg TID PO 10/31/19 16:00 11/16/19 08:12 Glucagon (Glucagon) 1 mg ASDIRECTED PRN SC SEE LABEL COMMENTS 10/26/19 14:00 Glucose (Glucose) 16 GM ASDIRECTED PRN PO SEE LABEL COMMENTS 10/26/19 14:00 Home Med (Med Rec Complete!) ASDIRECTED XX 10/26/19 15:45 10/26/19 15:51 DC Hydralazine HCl (Apresoline) 25 mg TID PO 10/28/19 09:00 11/16/19 08:12 Insulin Detemir (Levemir Insulin) 5 units QHS SC 10/26/19 21:00 10/27/19 09:52 DC 10/26/19 21:59 Insulin Detemir (Levemir Insulin) 8 units QHS SC 10/27/19 21:00 11/02/19 10:45 DC 11/01/19 21:09 Insulin Detemir (Levemir Insulin) 10 units QHS SC 11/02/19 21:00 11/15/19 21:12 Insulin Human Lispro (HumaLOG INSULIN) SEE PROTOCOL TABLE AC SC 10/26/19 17:30 11/16/19 08:14 Insulin Human Lispro (HumaLOG INSULIN) SEE PROTOCOL TABLE QHS SC 10/26/19 21:00 11/11/19 20:09 Lidocaine (Lidoderm Patch) 2 patch DAILY TD 11/07/19 09:00 11/07/19 12:15 DC 11/07/19 11:56 Loperamide HCl (Imodium) 2 mg ASDIRECTED PRN PO DIARRHEA 11/04/19 12:15 11/16/19 08:12 Magnesium Hydroxide (Milk Of Magnesia) 30 ml DAILYPRN PRN PO CONSTIPATION 10/26/19 14:00 Magnesium Oxide (Mag-Ox) 400 mg DAILY PO 10/27/19 09:00 11/04/19 12:13 DC 11/04/19 08:32 Menthol/Methyl Salicylate (Bengay Cream) 1 dose TID TOP 11/07/19 16:00 11/11/19 20:10 Metoprolol Tartrate (Lopressor) 25 mg BID PO 10/26/19 21:00 10/28/19 09:40 DC 10/28/19 07:23 Metoprolol Tartrate (Lopressor) 50 mg BID PO 10/28/19 21:00 11/16/19 08:14 Miscellaneous (Unresolved Clarification Entry) SEE LABEL COMMENTS DAILY XX 11/02/19 09:00 11/03/19 14:47 DC Miscellaneous (Unresolved Clarification Entry) SEE LABEL COMMENTS DAILY XX 11/08/19 09:00 11/08/19 10:48 DC Nicotine (Nicoderm Cq 14mg) 1 patch DAILY TD 10/26/19 09:00 11/09/19 16:58 DC 11/09/19 08:53 Nicotine (Nicoderm Cq 7 Mg) 1 patch DAILY TD 11/10/19 09:00 11/16/19 08:13 Nitroglycerin (Nitrostat (1/ 150)) 0.4 mg Q5MP PRN SL CHEST PAIN 10/27/19 13:30 10/27/19 15:57 Non-Formulary Medication ( See Comment Field Below ) REMOVE LIDODERM PATCH DAILY@21 XX 11/07/19 21:00 11/07/19 12:17 DC Ondansetron HCl (ZOFRAN INJection) 4 mg Q8HP PRN IV NAUSEA OR VOMITING 10/28/19 10:45 Ondansetron HCl (Zofran Odt) 4 mg Q6HP PRN PO NAUSEA OR VOMITING 10/27/19 13:30 10/29/19 07:10 Pantoprazole Sodium (Protonix) 40 mg DAILY PO 10/27/19 09:00 11/04/19 12:16 DC 11/04/19 08:32 Senna (Senokot) 1 tab QHS PO 10/26/19 21:00 11/04/19 12:13 DC 10/28/19 21:48 Tamsulosin HCl (Flomax) 0.4 mg DAILY PO 10/27/19 09:00 11/16/19 08:12 Tramadol HCl (Ultram) 25 mg Q6H PRN PO SEVERE HEADACHE 10/31/19 11:15 11/04/19 12:14 DC Tramadol HCl (Ultram) 50 mg Q4H PRN PO SEVERE HEADACHE 10/28/19 09:45 10/31/19 11:15 DC 10/30/19 12:32 Tramadol HCl (Ultram) 50 mg Q8H PRN PO SEVERE HEADACHE 10/27/19 12:30 10/28/19 09:40 DC 10/28/19 01:36 Trazodone HCl (Desyrel) 25 mg QHS PO 10/26/19 21:00 10/31/19 11:46 DC 10/30/19 21:23 Trazodone HCl (Desyrel) 50 mg QHS PO 10/31/19 21:00 11/15/19 21:11 TERRANCE PULIDO MD Nov 16, 2019 16:31
[2019-11-16] MEDS: FUROSEMIDE 20 MG TAB PO SCH (17:22)
[2019-11-16 20:00] VITALS: BP 145/68
[2019-11-16] MEDS: LEVEMIR (INSULIN DETEMIR) 1 UNITS/0.01ML SC SCH (20:28)
[2019-11-16] MEDS: ATORVASTATIN 20 MG TAB PO SCH (20:29)
[2019-11-16] MEDS: traZODone 50 MG TAB PO SCH (20:29)
[2019-11-17 06:00] VITALS: BP 125/60
[2019-11-17] MEDS: IPRATROPIUM 0.5MG/ALBUTEROL 2.5MG INH SOL UD 3ML (DUONEB)(J7620) NEB SCH ×3 (07:43→19:37)
[2019-11-17] MEDS: ENOXAPARIN 40 MG/0.4 ML SYRINGE (J1650) SC SCH (07:43)
[2019-11-17] MEDS: ASPIRIN 81 MG ENTERIC TAB PO SCH (07:44)
[2019-11-17] MEDS: FUROSEMIDE 20 MG TAB PO SCH (07:44)
[2019-11-17] MEDS: DULoxetine 30 MG CAP (CYMBALTA) PO SCH (07:44)
[2019-11-17] MEDS: TAMSULOSIN 0.4 MG CAP PO SCH (07:44)
[2019-11-17] MEDS: ACETAMINOPHEN TAB 650MG DOSE (2X325MG) PO SCH ×3 (07:44→20:12)
[2019-11-17] MEDS: FENOFIBRATE 145 MG TAB (TRICOR) PO SCH (07:45)
[2019-11-17] MEDS: METOPROLOL TART 50 MG TAB PO SCH ×2 (07:45→20:09)
[2019-11-17] MEDS: LOPERAMIDE 2 MG CAPLET PO PRN ×2 (07:45→20:07)
[2019-11-17] MEDS: GABAPENTIN 100 MG CAP PO SCH ×3 (07:45→20:08)
[2019-11-17] MEDS: HumaLOG INSULIN (NovoLOG) PER UNIT SC SCH ×4 (07:46→20:09)
[2019-11-17] MEDS: **hydrALAZINE HCL** 25 MG TAB PO SCH ×3 (07:47→20:08)
[2019-11-17] MEDS: NICOTINE 7 MG/24 HR TRANSDERMAL TD SCH (07:48)
[2019-11-17] MEDS: REMEDY PHYTOPLEX Z-GUARD PASTE 113GM TUBE (FROM STOREROOM PRODUCT) TOP SCH ×3 (08:09→20:10)
[2019-11-17] MEDS: ANALGESIC BALM CRM 120 GM TOP SCH ×3 (08:09→20:09)
[2019-11-17 14:00] VITALS: BP 117/63
--- NOTE | 2019-11-17 15:20 | IPNPDOC ---
PM&R Progress Note DATE OF SERVICE: Nov 17, 2019 [employer] Progress Note Subjective: Patient seen with his who was trained today, stating he would like to stop the Nicotine patch altogether. REVIEW OF SYSTEMS: The following is a completed review of systems and has been reviewed. Review of systems otherwise unremarkable. PAIN: Patient self reports no pain EYES: No recent vision changes EARS, NOSE, & THROAT: +dysphagia (resolved) CARDIOVASCULAR: Denies chest pain or palpitations PULMONARY: Denies shortness of breath GASTROINTESTINAL: Denies constipation/diarrhea GENITOURINARY: denies dysuria MUSCULOSKELETAL: left sided weakness NEUROLOGICAL:left sided paresis HEMATOLOGICAL: denies easy bruising SKIN:scattered shiny erythematous and papular lesions PSYCHIATRIC: Unremarkable All other review of systems found to be negative. PHYSICAL EXAMINATION: VITAL SIGNS: Please see below. GENERAL: Pleasant and cooperative. No acute distress. HEENT: PERRL. Extraocular movements intact. Clear conjunctiva CARDIOVASCULAR: Regular rate and rhythm. No murmurs, rubs, or gallops LUNGS: Clear to auscultation bilaterally. no wheezes. No rhonchi ABDOMEN: Soft, nontender, nondistended. Positive bowel sounds. Normal active bowel sounds NEUROLOGICAL: Alert and oriented times three. Cranial nerves II through XII grossly intact. decreased sensation to light touch on LUE and LLE with left sided inattention EXTREMITIES: 5\5 strength right upper extremities. Left 3/5 elbow flexors, 2/5 elbow extensors, 3/5 wrist extension, switch inspector 2/5 5\5 strength right lower extremity. 3/5 left hip flexors, 4/5 knee e xtensors/ankle DF/EHL. PF (-) SLR on the left, no groin pain with left hip internal rotation (+) bilat LE edema L>R (improving) SKIN: sacral fold with healed incision, left elbow effusion, bilat anterior shins with shiny erythematous plaques ASSESSMENT:44-year-old M with past medical history of DM who presents status post right MCA territory infarct PLAN: 1. Rehab- PT/OT advance gait and ADL training, dynamic balance training, strengthen/stretch/maintain ROM all 4 limbs- ambulating well -MOUNTER HAND evaluate for of and dysphagia- regular solid and thins 2. Neuro: s/p right MCA infarct having received tpa with left sided paresis and neglect -c/u ASA and statin for secondary stroke prevention, BP control -prozac for motor recovery - right sided headache, suspect nicotine and caffeine withdrawal as patient reports he had >10 cups of coffee a day, headaches resolved since initiation of Cymbalta and gabapentin-resolved, c/u Nicotine patch taper -CTH on 10-27-19 negative for new infarct, no new deficit on exam -neck paresthesias likely due to diabetic polyneuropathy 3. Cardiac: hx of HTN-c/u metoprolol and hydralazine, c/u monitor-medicine consulted to assist in management -HLD with hypertriglyceridemia with scattered Xanthoma lesions-c/u statin and Tricor -+peripheral edema improving, c/u lower dose gabapentin dosing and daily Lasix 20mg 4. resp: encourage incentive spirometry, monitor for infection -c/u duonebs 5. Endo: pmh DM c/u Levemir and ISS, adjust prn 6. : with with urinary retention at [facility] started on Flomax, will c/u- monitor PVRs, voiding well -erectile dysfunction, causes likely multi-fold, will encourage patient to stop SSRI after total of 3 months, f/u with urology on d/c and avoid use of Viagra until at least 6 months following stroke 7. DVT ppx: Lovenox and TEDs, dopplers negative x2 8. GI ppx: holding Protonix, Colace, senna as can all contribute to loose stools- FOBT negative -Imodium prn loose stools 9. Pain: patient with right sided headaches that have resolved, c/u Cymbalta and gabapentin dosing -suspect left biceps femoris tendinitis, improving, c/u menthol salicylate rub, encourage stretching in therapy 10. Psych: trazodone 50mg qHS 11. Dispo: 11-22-19 to home, progressing towards goals Allergies Coded Allergies: lactose (Verified Adverse Reaction, Mild, GI UPSET, 10/26/19) Vital Signs Vital Signs Date Time Temp Pulse Resp B/P (MAP) Pulse Ox O2 Delivery O2 Flow Rate FiO2 11/17/19 14:00 97.9 89 18 117/63 (81) 92 Room Air Laboratory Data Labs 24H Laboratory Tests 2 11/16/19 16:19: Bedside Glucose (Misc Panel) 171H 11/16/19 20:14: Bedside Glucose (Misc Panel) 150H 11/17/19 06:08: Bedside Glucose (Misc Panel) 156H 11/17/19 12:10: Bedside Glucose (Misc Panel) 117H Current Medications Current Medications Current Medications Medications (Trade) Dose Ordered Sig/Anthony Route PRN Reason Start Time Stop Time Status Last Admin Dose Admin Acetaminophen (Tylenol Tab) 650 mg Q4HP PRN PO fever/MILD PAIN (PS 1-4) 10/26/19 14:00 10/26/19 17:07 DC Acetaminophen (Tylenol Tab) 650 mg TID PO 10/26/19 16:00 11/17/19 07:44 Acetaminophen/ Butalbital/ Caffeine (Fioricet) 1 ea Q4HP PRN PO HEADACHE 10/26/19 17:15 10/29/19 06:00 Albuterol/ Ipratropium (Duoneb (Ipr 0.5mg/Alb 2.5mg)) 3 ml RTID NEB 10/26/19 20:00 11/16/19 19:41 Aspirin (Aspirin) 325 mg STAT STAT PO 10/27/19 13:16 10/27/19 13:21 DC 10/27/19 13:26 Aspirin (Ecotrin) 81 mg DAILY PO 10/27/19 09:00 11/17/19 07:44 Atorvastatin Calcium (Lipitor) 80 mg QHS PO 10/27/19 21:00 11/16/19 20:29 Bisacodyl (Dulcolax Suppository) 10 mg DAILYPRN PRN [place] BOWEL CARE/CONSTIPATION 10/27/19 10:45 Dextrose (Dextrose 50%) 25 ml ASDIRECTED PRN IV SEE LABEL COMMENTS 10/26/19 14:00 Docusate Sodium (Colace) 100 mg BID PO 10/26/19 21:00 11/04/19 12:13 DC 11/01/19 07:34 Duloxetine HCl (Cymbalta) 30 mg DAILY PO 10/29/19 09:00 11/17/19 07:44 Duloxetine HCl (Cymbalta) 30 mg DAILY PO 10/30/19 09:00 10/29/19 10:05 DC Enoxaparin Sodium (Lovenox) 40 mg DAILY SC 10/27/19 09:00 11/17/19 07:43 Fenofibrate (Tricor) 145 mg DAILY PO 10/27/19 09:00 11/17/19 07:45 Fluoxetine HCl (PROzac) 20 mg DAILY PO 10/27/19 09:00 10/29/19 09:29 DC 10/29/19 08:06 Furosemide (Lasix) 20 mg DAILY PO 11/16/19 16:30 11/17/19 07:44 Gabapentin (Neurontin) 100 mg TID PO 10/29/19 09:00 10/31/19 11:46 DC 10/31/19 09:12 Gabapentin (Neurontin) 100 mg TID PO 11/16/19 21:00 11/17/19 07:45 Gabapentin (Neurontin) 200 mg TID PO 10/31/19 16:00 11/16/19 16:29 DC 11/16/19 08:12 Glucagon (Glucagon) 1 mg ASDIRECTED PRN SC SEE LABEL COMMENTS 10/26/19 14:00 Glucose (Glucose) 16 GM ASDIRECTED PRN PO SEE LABEL COMMENTS 10/26/19 14:00 Home Med (Med Rec Complete!) ASDIRECTED XX 10/26/19 15:45 10/26/19 15:51 DC Hydralazine HCl (Apresoline) 25 mg TID PO 10/28/19 09:00 11/17/19 07:47 Insulin Detemir (Levemir Insulin) 5 units QHS SC 10/26/19 21:00 10/27/19 09:52 DC 10/26/19 21:59 Insulin Detemir (Levemir Insulin) 8 units QHS SC 10/27/19 21:00 11/02/19 10:45 DC 11/01/19 21:09 Insulin Detemir (Levemir Insulin) 10 units QHS SC 11/02/19 21:00 11/16/19 20:28 Insulin Human Lispro (HumaLOG INSULIN) SEE PROTOCOL TABLE AC SC 10/26/19 17:30 11/17/19 12:28 Insulin Human Lispro (HumaLOG INSULIN) SEE PROTOCOL TABLE QHS SC 10/26/19 21:00 11/11/19 20:09 Lidocaine (Lidoderm Patch) 2 patch DAILY TD 11/07/19 09:00 11/07/19 12:15 DC 11/07/19 11:56 Loperamide HCl (Imodium) 2 mg ASDIRECTED PRN PO DIARRHEA 11/04/19 12:15 11/17/19 07:45 Magnesium Hydroxide (Milk Of Magnesia) 30 ml DAILYPRN PRN PO CONSTIPATION 10/26/19 14:00 Magnesium Oxide (Mag-Ox) 400 mg DAILY PO 10/27/19 09:00 11/04/19 12:13 DC 11/04/19 08:32 Menthol/Methyl Salicylate (Bengay Cream) 1 dose TID TOP 11/07/19 16:00 11/11/19 20:10 Metoprolol Tartrate (Lopressor) 25 mg BID PO 10/26/19 21:00 10/28/19 09:40 DC 10/28/19 07:23 Metoprolol Tartrate (Lopressor) 50 mg BID PO 10/28/19 21:00 11/17/19 07:45 Miscellaneous (Unresolved Clarification Entry) SEE LABEL COMMENTS DAILY XX 11/02/19 09:00 11/03/19 14:47 DC Miscellaneous (Unresolved Clarification Entry) SEE LABEL COMMENTS DAILY XX 11/08/19 09:00 11/08/19 10:48 DC Nicotine (Nicoderm Cq 14mg) 1 patch DAILY TD 10/26/19 09:00 11/09/19 16:58 DC 11/09/19 08:53 Nicotine (Nicoderm Cq 7 Mg) 1 patch DAILY TD 11/10/19 09:00 11/17/19 07:48 Nitroglycerin (Nitrostat (1/ 150)) 0.4 mg Q5MP PRN SL CHEST PAIN 10/27/19 13:30 10/27/19 15:57 Non-Formulary Medication ( See Comment Field Below ) REMOVE LIDODERM PATCH DAILY@21 XX 11/07/19 21:00 11/07/19 12:17 DC Ondansetron HCl (ZOFRAN INJection) 4 mg Q8HP PRN IV NAUSEA OR VOMITING 10/28/19 10:45 Ondansetron HCl (Zofran Odt) 4 mg Q6HP PRN PO NAUSEA OR VOMITING 10/27/19 13:30 10/29/19 07:10 Pantoprazole Sodium (Protonix) 40 mg DAILY PO 10/27/19 09:00 11/04/19 12:16 DC 11/04/19 08:32 Senna (Senokot) 1 tab QHS PO 10/26/19 21:00 11/04/19 12:13 DC 10/28/19 21:48 Tamsulosin HCl (Flomax) 0.4 mg DAILY PO 10/27/19 09:00 11/17/19 07:44 Tramadol HCl (Ultram) 25 mg Q6H PRN PO SEVERE HEADACHE 10/31/19 11:15 11/04/19 12:14 DC Tramadol HCl (Ultram) 50 mg Q4H PRN PO SEVERE HEADACHE 10/28/19 09:45 10/31/19 11:15 DC 10/30/19 12:32 Tramadol HCl (Ultram) 50 mg Q8H PRN PO SEVERE HEADACHE 10/27/19 12:30 10/28/19 09:40 DC 10/28/19 01:36 Trazodone HCl (Desyrel) 25 mg QHS PO 10/26/19 21:00 10/31/19 11:46 DC 10/30/19 21:23 Trazodone HCl (Desyrel) 50 mg QHS PO 10/31/19 21:00 11/16/19 20:29 TERRANCE PULIDO MD Nov 17, 2019 15:20
[2019-11-17] MEDS: ATORVASTATIN 20 MG TAB PO SCH (20:07)
[2019-11-17] MEDS: traZODone 50 MG TAB PO SCH (20:08)
[2019-11-17] MEDS: LEVEMIR (INSULIN DETEMIR) 1 UNITS/0.01ML SC SCH (20:09)
[2019-11-17 21:00] VITALS: BP 137/67
[2019-11-18 05:55] VITALS: BP 129/64
[2019-11-18 07:19] LABS: BASO % 0.3 % (0.0-1.0); EOS # 0.3 10^3/uL (0.0-0.5); HEMATOCRIT 40.2 % (42.0-52.0); HEMOGLOBIN 13.9 g/dl (13.5-17.5); LYMPH # 1.6 10^3/uL (1.5-5.0); LYMPH % 22.8 % (24.0-44.0); MEAN CORPUSCULAR HEMOGLOBIN 29.6 pg (27.0-33.0); MEAN CORPUSCULAR HGB CONC 34.6 g/dl (32.0-36.5); MEAN CORPUSCULAR VOLUME 85.7 fl (80.0-96.0); MONO # 0.5 10^3/uL (0.0-0.8); MONO % 7.1 % (0.0-5.0); NEUTROPHILS # 4.5 10^3/uL (1.5-8.5); NEUTROPHILS % 65.5 % (36.0-66.0); PLATELET COUNT, AUTOMATED 244 10^3/uL (150-450); RED BLOOD COUNT 4.69 10^6/uL (4.30-6.10); WHITE BLOOD COUNT 6.8 10^3/uL (4.0-10.0)
[2019-11-18 07:37] LABS: BLOOD UREA NITROGEN 17 MG/DL (7-18); CALCIUM LEVEL 8.5 MG/DL (8.5-10.1); CARBON DIOXIDE LEVEL 28 MEQ/L (21-32); CHLORIDE LEVEL 107 MEQ/L (98-107); CREATININE FOR GFR 0.94 MG/DL (0.70-1.30); GLOMERULAR FILTRATION RATE > 60.0 (>60); GLUCOSE, FASTING 174 MG/DL (70-100); POTASSIUM SERUM 4.1 MEQ/L (3.5-5.1); SODIUM LEVEL 140 MEQ/L (136-145)
[2019-11-18] MEDS: IPRATROPIUM 0.5MG/ALBUTEROL 2.5MG INH SOL UD 3ML (DUONEB)(J7620) NEB SCH ×3 (08:00→20:02)
[2019-11-18] MEDS: ANALGESIC BALM CRM 120 GM TOP SCH ×3 (09:00→20:41)
[2019-11-18] MEDS: REMEDY PHYTOPLEX Z-GUARD PASTE 113GM TUBE (FROM STOREROOM PRODUCT) TOP SCH ×3 (09:00→20:42)
[2019-11-18] MEDS: ENOXAPARIN 40 MG/0.4 ML SYRINGE (J1650) SC SCH (09:17)
[2019-11-18] MEDS: ASPIRIN 81 MG ENTERIC TAB PO SCH (09:17)
[2019-11-18] MEDS: ACETAMINOPHEN TAB 650MG DOSE (2X325MG) PO SCH ×3 (09:18→20:40)
[2019-11-18] MEDS: GABAPENTIN 100 MG CAP PO SCH ×3 (09:18→20:40)
[2019-11-18] MEDS: FUROSEMIDE 20 MG TAB PO SCH (09:18)
[2019-11-18] MEDS: FENOFIBRATE 145 MG TAB (TRICOR) PO SCH (09:18)
[2019-11-18] MEDS: DULoxetine 30 MG CAP (CYMBALTA) PO SCH (09:18)
[2019-11-18] MEDS: TAMSULOSIN 0.4 MG CAP PO SCH (09:18)
[2019-11-18] MEDS: **hydrALAZINE HCL** 25 MG TAB PO SCH ×3 (09:18→20:40)
[2019-11-18] MEDS: HumaLOG INSULIN (NovoLOG) PER UNIT SC SCH ×4 (09:19→20:41)
[2019-11-18] MEDS: METOPROLOL TART 50 MG TAB PO SCH ×2 (09:19→20:41)
--- NOTE | 2019-11-18 11:31 | IPNPDOC ---
PM&R Progress Note DATE OF SERVICE: Nov 18, 2019 [employer] Progress Note Subjective: Patient seen in his room stating his blood sugar dropped this morning stating he did eat breakfast, but had a more rigorous work-out. REVIEW OF SYSTEMS: The following is a completed review of systems and has been reviewed. Review of systems otherwise unremarkable. PAIN: Patient self reports no pain EYES: No recent vision changes EARS, NOSE, & THROAT: +dysphagia (resolved) CARDIOVASCULAR: Denies chest pain or palpitations PULMONARY: Denies shortness of breath GASTROINTESTINAL: Denies constipation/diarrhea GENITOURINARY: denies dysuria MUSCULOSKELETAL: left sided weakness NEUROLOGICAL:left sided paresis HEMATOLOGICAL: denies easy bruising SKIN:scattered shiny erythematous and papular lesions PSYCHIATRIC: Unremarkable All other review of systems found to be negative. PHYSICAL EXAMINATION: VITAL SIGNS: Please see below. GENERAL: Pleasant and cooperative. No acute distress. HEENT: PERRL. Extraocular movements intact. Clear conjunctiva CARDIOVASCULAR: Regular rate and rhythm. No murmurs, rubs, or gallops LUNGS: Clear to auscultation bilaterally. no wheezes. No rhonchi ABDOMEN: Soft, nontender, nondistended. Positive bowel sounds. Normal active bowel sounds NEUROLOGICAL: Alert and oriented times three. Cranial nerves II through XII shantanu ssly intact. decreased sensation to light touch on LUE and LLE with left sided inattention EXTREMITIES: 5\5 strength right upper extremities. Left 3/5 elbow flexors, 2/5 elbow extensors, 3/5 wrist extension, pipe fitter soft copper 2/5 5\5 strength right lower extremity. 3/5 left hip flexors, 4/5 knee extensors/ank le DF/EHL. PF (-) SLR on the left, no groin pain with left hip internal rotation (+) bilat LE edema L>R (improving) SKIN: sacral fold with healed incision, left elbow effusion, bilat anterior shins with shiny erythematous plaques ASSESSMENT:44-year-old M with past medical history of DM who presents status post right MCA territory infarct PLAN: 1. Rehab- PT/OT advance gait and ADL training, dynamic balance training, strengthen/stretch/maintain ROM all 4 limbs- ambulating well -RESTAURANT MGR evaluate for of and dysphagia- regular solid and thins 2. Neuro: s/p right MCA infarct having received tpa with left sided paresis and neglect -c/u ASA and statin for secondary stroke prevention, BP control -prozac for motor recovery - right sided headache, suspect nicotine and caffeine withdrawal as patient reports he had >10 cups of coffee a day, headaches resolved since initiation of Cymbalta and gabapentin-resolved, c/u Nicotine patch taper -CTH on 10-27-19 negative for new infarct, no new deficit on exam -neck paresthesias likely due to diabetic polyneuropathy 3. Cardiac: hx of HTN-c/u metoprolol and hydralazine, c/u monitor-medicine consulted to assist in management -HLD with hypertriglyceridemia with scattered Xanthoma lesions-c/u statin and Tricor -+peripheral edema improving, c/u lower dose gabapentin dosing and daily Lasix 20mg 4. resp: encourage incentive spirometry, monitor for infection -c/u duonebs 5. Endo: pmh DM will d/c Levemir and c/u ISS given drops in FS today 6. : with with urinary retention at [facility] started on Flomax, will c/u- monitor PVRs, voiding well -erectile dysfunction, causes likely multi-fold, will encourage patient to stop SSRI after total of 3 months, f/u with urology on d/c and avoid use of Viagra until at least 6 months following stroke 7. DVT ppx: Lovenox and TEDs, dopplers negative x2 8. GI ppx: holding Protonix, Colace, senna as can all contribute to loose stools- FOBT negative -Imodium prn loose stools 9. Pain: patient with right sided headaches that have resolved, c/u Cymbalta and gabapentin dosing -suspect left biceps femoris tendinitis, improving, c/u menthol salicylate rub, encourage stretching in therapy 10. Psych: trazodone 50mg qHS 11. Dispo: 11-22-19 to home, progressing towards goals DME: Patient will require a wheelchair to complete his MRADLs in a timely and safe manner. He cannot complete these MRADLs safely with any other assistive device. He is agreeable to using a wheelchair, his home is accessible, and his is willing to help him. Allergies Coded Allergies: lactose (Verified Adverse Reaction, Mild, GI UPSET, 10/26/19) Vital Signs Vital Signs Date Time Temp Pulse Resp B/P (MAP) Pulse Ox O2 Delivery O2 Flow Rate FiO2 11/18/19 09:19 64 129/64 11/18/19 05:55 98.3 16 97 Room Air Laboratory Data CBC/BMP Laboratory Tests 11/18/19 06:57 Labs 24H Laboratory Tests 2 11/17/19 12:10: Bedside Glucose (Misc Panel) 117H 11/17/19 16:48: Bedside Glucose (Misc Panel) 149H 11/17/19 20:05: Bedside Glucose (Misc Panel) 92 11/18/19 06:14: Bedside Glucose (Misc Panel) 165H 11/18/19 06:57: Immature Granulocyte % (Auto) 0.3, Neutrophils (%) (Auto) 65.5, Lymphocytes (%) (Auto) 22.8L, Monocytes (%) (Auto) 7.1H, Eosinophils (%) (Auto) 4.0H, Basophils (%) (Auto) 0.3, Neutrophils # (Auto) 4.5, Lymphocytes # (Auto) 1.6, Monocytes # (Auto) 0.5, Eosinophils # (Auto) 0.3, Basophils # (Auto) 0.0, Nucleated Red Blood Cells % (auto) 0.0, Anion Gap 5L, Glomerular Filtration Rate > 60.0, Calcium Level 8.5 11/18/19 11:04: Bedside Glucose (Misc Panel) 53L 11/18/19 11:19: Bedside Glucose (Misc Panel) 100 Current Medications Current Medications Current Medications Medications (Trade) Dose Ordered Sig/Anthony Route PRN Reason Start Time Stop Time Status Last Admin Dose Admin Acetaminophen (Tylenol Tab) 650 mg Q4HP PRN PO fever/MILD PAIN (PS 1-4) 10/26/19 14:00 10/26/19 17:07 DC Acetaminophen (Tylenol Tab) 650 mg TID PO 10/26/19 16:00 11/18/19 09:18 Acetaminophen/ Butalbital/ Caffeine (Fioricet) 1 ea Q4HP PRN PO HEADACHE 10/26/19 17:15 10/29/19 06:00 Albuterol/ Ipratropium (Duoneb (Ipr 0.5mg/Alb 2.5mg)) 3 ml RTID NEB 10/26/19 20:00 11/17/19 19:37 Aspirin (Aspirin) 325 mg STAT STAT PO 10/27/19 13:16 10/27/19 13:21 DC 10/27/19 13:26 Aspirin (Ecotrin) 81 mg DAILY PO 10/27/19 09:00 11/18/19 09:17 Atorvastatin Calcium (Lipitor) 80 mg QHS PO 10/27/19 21:00 11/17/19 20:07 Bisacodyl (Dulcolax Suppository) 10 mg DAILYPRN PRN [place] BOWEL CARE/CONSTIPATION 10/27/19 10:45 Dextrose (Dextrose 50%) 25 ml ASDIRECTED PRN IV SEE LABEL COMMENTS 10/26/19 14:00 Docusate Sodium (Colace) 100 mg BID PO 10/26/19 21:00 11/04/19 12:13 DC 11/01/19 07:34 Duloxetine HCl (Cymbalta) 30 mg DAILY PO 10/29/19 09:00 11/18/19 09:18 Duloxetine HCl (Cymbalta) 30 mg DAILY PO 10/30/19 09:00 10/29/19 10:05 DC Enoxaparin Sodium (Lovenox) 40 mg DAILY SC 10/27/19 09:00 11/18/19 09:17 Fenofibrate (Tricor) 145 mg DAILY PO 10/27/19 09:00 11/18/19 09:18 Fluoxetine HCl (PROzac) 20 mg DAILY PO 10/27/19 09:00 10/29/19 09:29 DC 10/29/19 08:06 Furosemide (Lasix) 20 mg DAILY PO 11/16/19 16:30 11/18/19 09:18 Gabapentin (Neurontin) 100 mg TID PO 10/29/19 09:00 10/31/19 11:46 DC 10/31/19 09:12 Gabapentin (Neurontin) 100 mg TID PO 11/16/19 21:00 11/18/19 09:18 Gabapentin (Neurontin) 200 mg TID PO 10/31/19 16:00 11/16/19 16:29 DC 11/16/19 08:12 Glucagon (Glucagon) 1 mg ASDIRECTED PRN SC SEE LABEL COMMENTS 10/26/19 14:00 Glucose (Glucose) 16 GM ASDIRECTED PRN PO SEE LABEL COMMENTS 10/26/19 14:00 Home Med (Med Rec Complete!) ASDIRECTED XX 10/26/19 15:45 10/26/19 15:51 DC Hydralazine HCl (Apresoline) 25 mg TID PO 10/28/19 09:00 11/18/19 09:18 Insulin Detemir (Levemir Insulin) 5 units QHS SC 10/26/19 21:00 10/27/19 09:52 DC 10/26/19 21:59 Insulin Detemir (Levemir Insulin) 8 units QHS SC 10/27/19 21:00 11/02/19 10:45 DC 11/01/19 21:09 Insulin Detemir (Levemir Insulin) 10 units QHS SC 11/02/19 21:00 11/18/19 11:23 DC 11/16/19 20:28 Insulin Human Lispro (HumaLOG INSULIN) SEE PROTOCOL TABLE AC SC 10/26/19 17:30 11/18/19 09:19 Insulin Human Lispro (HumaLOG INSULIN) SEE PROTOCOL TABLE QHS SC 10/26/19 21:00 11/11/19 20:09 Lidocaine (Lidoderm Patch) 2 patch DAILY TD 11/07/19 09:00 11/07/19 12:15 DC 11/07/19 11:56 Loperamide HCl (Imodium) 2 mg ASDIRECTED PRN PO DIARRHEA 11/04/19 12:15 11/17/19 20:07 Magnesium Hydroxide (Milk Of Magnesia) 30 ml DAILYPRN PRN PO CONSTIPATION 10/26/19 14:00 Magnesium Oxide (Mag-Ox) 400 mg DAILY PO 10/27/19 09:00 11/04/19 12:13 DC 11/04/19 08:32 Menthol/Methyl Salicylate (Bengay Cream) 1 dose TID TOP 11/07/19 16:00 11/11/19 20:10 Metoprolol Tartrate (Lopressor) 25 mg BID PO 10/26/19 21:00 10/28/19 09:40 DC 10/28/19 07:23 Metoprolol Tartrate (Lopressor) 50 mg BID PO 10/28/19 21:00 11/18/19 09:19 Miscellaneous (Unresolved Clarification Entry) SEE LABEL COMMENTS DAILY XX 11/02/19 09:00 11/03/19 14:47 DC Miscellaneous (Unresolved Clarification Entry) SEE LABEL COMMENTS DAILY XX 11/08/19 09:00 11/08/19 10:48 DC Nicotine (Nicoderm Cq 14mg) 1 patch DAILY TD 10/26/19 09:00 11/09/19 16:58 DC 11/09/19 08:53 Nicotine (Nicoderm Cq 7 Mg) 1 patch DAILY TD 11/10/19 09:00 11/17/19 16:36 DC 11/17/19 07:48 Nitroglycerin (Nitrostat (1/ 150)) 0.4 mg Q5MP PRN SL CHEST PAIN 10/27/19 13:30 10/27/19 15:57 Non-Formulary Medication ( See Comment Field Below ) REMOVE LIDODERM PATCH DAILY@21 XX 11/07/19 21:00 11/07/19 12:17 DC Ondansetron HCl (ZOFRAN INJection) 4 mg Q8HP PRN IV NAUSEA OR VOMITING 10/28/19 10:45 Ondansetron HCl (Zofran Odt) 4 mg Q6HP PRN PO NAUSEA OR VOMITING 10/27/19 13:30 10/29/19 07:10 Pantoprazole Sodium (Protonix) 40 mg DAILY PO 10/27/19 09:00 11/04/19 12:16 DC 11/04/19 08:32 Senna (Senokot) 1 tab QHS PO 10/26/19 21:00 11/04/19 12:13 DC 10/28/19 21:48 Tamsulosin HCl (Flomax) 0.4 mg DAILY PO 10/27/19 09:00 11/18/19 09:18 Tramadol HCl (Ultram) 25 mg Q6H PRN PO SEVERE HEADACHE 10/31/19 11:15 11/04/19 12:14 DC Tramadol HCl (Ultram) 50 mg Q4H PRN PO SEVERE HEADACHE 10/28/19 09:45 10/31/19 11:15 DC 10/30/19 12:32 Tramadol HCl (Ultram) 50 mg Q8H PRN PO SEVERE HEADACHE 10/27/19 12:30 10/28/19 09:40 DC 10/28/19 01:36 Trazodone HCl (Desyrel) 25 mg QHS PO 10/26/19 21:00 10/31/19 11:46 DC 10/30/19 21:23 Trazodone HCl (Desyrel) 50 mg QHS PO 10/31/19 21:00 11/17/19 20:08 TERRANCE PULIDO MD Nov 18, 2019 11:30
[2019-11-18 14:00] VITALS: BP 123/59
[2019-11-18] MEDS: LOPERAMIDE 2 MG CAPLET PO PRN ×2 (18:09→20:39)
[2019-11-18 20:30] VITALS: BP 133/87
[2019-11-18] MEDS: ATORVASTATIN 20 MG TAB PO SCH (20:39)
[2019-11-18] MEDS: traZODone 50 MG TAB PO SCH (20:40)
[2019-11-19 05:44] VITALS: BP 136/75
[2019-11-19] MEDS: IPRATROPIUM 0.5MG/ALBUTEROL 2.5MG INH SOL UD 3ML (DUONEB)(J7620) NEB SCH ×3 (08:05→19:31)
[2019-11-19] MEDS: REMEDY PHYTOPLEX Z-GUARD PASTE 113GM TUBE (FROM STOREROOM PRODUCT) TOP SCH ×3 (09:00→20:36)
[2019-11-19] MEDS: ANALGESIC BALM CRM 120 GM TOP SCH ×3 (09:00→20:36)
[2019-11-19] MEDS: DULoxetine 30 MG CAP (CYMBALTA) PO SCH (09:33)
[2019-11-19] MEDS: METOPROLOL TART 50 MG TAB PO SCH ×2 (09:33→20:35)
[2019-11-19] MEDS: ACETAMINOPHEN TAB 650MG DOSE (2X325MG) PO SCH ×3 (09:33→20:34)
[2019-11-19] MEDS: ENOXAPARIN 40 MG/0.4 ML SYRINGE (J1650) SC SCH (09:34)
[2019-11-19] MEDS: HumaLOG INSULIN (NovoLOG) PER UNIT SC SCH ×4 (09:34→20:36)
[2019-11-19] MEDS: FUROSEMIDE 20 MG TAB PO SCH (09:35)
[2019-11-19] MEDS: ASPIRIN 81 MG ENTERIC TAB PO SCH (09:35)
[2019-11-19] MEDS: **hydrALAZINE HCL** 25 MG TAB PO SCH ×3 (09:35→20:35)
[2019-11-19] MEDS: GABAPENTIN 100 MG CAP PO SCH ×3 (09:35→20:35)
[2019-11-19] MEDS: FENOFIBRATE 145 MG TAB (TRICOR) PO SCH (09:35)
[2019-11-19] MEDS: TAMSULOSIN 0.4 MG CAP PO SCH (09:35)
[2019-11-19 14:00] VITALS: BP 123/65
[2019-11-19 20:06] VITALS: BP 133/65
[2019-11-19] MEDS: LOPERAMIDE 2 MG CAPLET PO PRN (20:34)
[2019-11-19] MEDS: traZODone 50 MG TAB PO SCH (20:35)
[2019-11-19] MEDS: ATORVASTATIN 20 MG TAB PO SCH (20:35)
[2019-11-20 05:33] VITALS: BP 135/67
[2019-11-20] MEDS: IPRATROPIUM 0.5MG/ALBUTEROL 2.5MG INH SOL UD 3ML (DUONEB)(J7620) NEB SCH ×3 (07:44→19:43)
[2019-11-20] MEDS: HumaLOG INSULIN (NovoLOG) PER UNIT SC SCH ×4 (08:20→21:00)
[2019-11-20] MEDS: ASPIRIN 81 MG ENTERIC TAB PO SCH (08:21)
[2019-11-20] MEDS: FENOFIBRATE 145 MG TAB (TRICOR) PO SCH (08:21)
[2019-11-20] MEDS: ACETAMINOPHEN TAB 650MG DOSE (2X325MG) PO SCH ×3 (08:21→21:45)
[2019-11-20] MEDS: FUROSEMIDE 20 MG TAB PO SCH (08:21)
[2019-11-20] MEDS: ENOXAPARIN 40 MG/0.4 ML SYRINGE (J1650) SC SCH (08:21)
[2019-11-20] MEDS: METOPROLOL TART 50 MG TAB PO SCH ×2 (08:21→21:45)
[2019-11-20] MEDS: TAMSULOSIN 0.4 MG CAP PO SCH (08:22)
[2019-11-20] MEDS: REMEDY PHYTOPLEX Z-GUARD PASTE 113GM TUBE (FROM STOREROOM PRODUCT) TOP SCH ×3 (08:22→21:00)
[2019-11-20] MEDS: DULoxetine 30 MG CAP (CYMBALTA) PO SCH (08:22)
[2019-11-20] MEDS: GABAPENTIN 100 MG CAP PO SCH ×3 (08:22→21:45)
[2019-11-20] MEDS: ANALGESIC BALM CRM 120 GM TOP SCH ×3 (08:22→21:00)
[2019-11-20] MEDS: **hydrALAZINE HCL** 25 MG TAB PO SCH ×3 (08:22→21:45)
[2019-11-20 14:00] VITALS: BP 140/72
[2019-11-20 20:00] VITALS: BP 163/79
[2019-11-20] MEDS: traZODone 50 MG TAB PO SCH (21:45)
[2019-11-20] MEDS: ATORVASTATIN 20 MG TAB PO SCH (21:45)
[2019-11-20] MEDS: LOPERAMIDE 2 MG CAPLET PO PRN (21:45)
[2019-11-21 06:00] VITALS: BP 132/66
[2019-11-21] MEDS: REMEDY PHYTOPLEX Z-GUARD PASTE 113GM TUBE (FROM STOREROOM PRODUCT) TOP SCH ×3 (09:00→20:59)
[2019-11-21] MEDS: ANALGESIC BALM CRM 120 GM TOP SCH ×3 (09:00→20:59)
[2019-11-21] MEDS: ASPIRIN 81 MG ENTERIC TAB PO SCH (09:20)
[2019-11-21] MEDS: HumaLOG INSULIN (NovoLOG) PER UNIT SC SCH ×4 (09:20→20:59)
[2019-11-21] MEDS: FENOFIBRATE 145 MG TAB (TRICOR) PO SCH (09:20)
[2019-11-21] MEDS: DULoxetine 30 MG CAP (CYMBALTA) PO SCH (09:21)
[2019-11-21] MEDS: METOPROLOL TART 50 MG TAB PO SCH ×2 (09:21→21:54)
[2019-11-21] MEDS: FUROSEMIDE 20 MG TAB PO SCH (09:21)
[2019-11-21] MEDS: GABAPENTIN 100 MG CAP PO SCH ×3 (09:21→21:54)
[2019-11-21] MEDS: **hydrALAZINE HCL** 25 MG TAB PO SCH ×3 (09:22→21:54)
[2019-11-21] MEDS: TAMSULOSIN 0.4 MG CAP PO SCH (09:22)
[2019-11-21] MEDS: ACETAMINOPHEN TAB 650MG DOSE (2X325MG) PO SCH ×3 (09:23→21:54)
[2019-11-21] MEDS: ENOXAPARIN 40 MG/0.4 ML SYRINGE (J1650) SC SCH (09:23)
[2019-11-21] MEDS ORDERED: FLOM0.4C39 PO (11:16)
[2019-11-21] MEDS ORDERED: TRAZ-252 PO (11:16)
[2019-11-21] MEDS ORDERED: FURO20TA2 PO (11:16)
[2019-11-21] MEDS ORDERED: CYMB1CAP5 PO (11:16)
[2019-11-21] MEDS ORDERED: FENO145T7 PO (11:16)
[2019-11-21] MEDS ORDERED: ASPI81TAEC PO (11:16)
[2019-11-21] MEDS ORDERED: GABA-1171 PO (11:16)
[2019-11-21] MEDS ORDERED: HYDR25TA PO (11:16)
[2019-11-21] MEDS ORDERED: INSUHUMDS SC (11:16)
[2019-11-21] MEDS ORDERED: ATOR80TA59 PO (11:16)
[2019-11-21] MEDS ORDERED: LOPR1TAB6 PO (11:16)
--- NOTE | 2019-11-21 11:23 | IPNPDOC ---
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 REVIEW OF SYSTEMS: The following is a completed review of systems and has been reviewed. Review of systems otherwise unremarkable. PAIN: Patient self reports no pain EYES: No recent vision changes EARS, NOSE, & THROAT: +dysphagia (resolved) CARDIOVASCULAR: Denies chest pain or palpitations PULMONARY: Denies shortness of breath GASTROINTESTINAL: Denies constipation/diarrhea GENITOURINARY: denies dysuria MUSCULOSKELETAL: left sided weakness NEUROLOGICAL:left sided paresis HEMATOLOGICAL: denies easy bruising SKIN:scattered shiny erythematous and papular lesions PSYCHIATRIC: Unremarkable All other review of systems found to be negative. PHYSICAL EXAMINATION: VITAL SIGNS: Please see below. GENERAL: Pleasant and cooperative. No acute distress. HEENT: PERRL. Extraocular movements intact. Clear conjunctiva CARDIOVASCULAR: Regular rate and rhythm. No murmurs, rubs, or gallops LUNGS: Clear to auscultation bilaterally. no wheezes. No rhonchi ABDOMEN: Soft, nontender, nondistended. Positive bowel sounds. Normal active bowel sounds NEUROLOGICAL: Alert and oriented times three. Cranial nerves II through XII grossly intact. decreased sensation to light touch on LUE and LLE with left sided inattention EXTREMITIES: 5\5 strength right upper extremities. 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 3/5 left hip flexors, 4/5 knee extensors /ankle DF/EHL. PF (-) SLR on the left, no groin pain with left hip internal rotation (+) bilat LE edema L>R (improving) SKIN: sacral fold with healed incision, left elbow effusion, bilat anterior shins with shiny erythematous plaques ASSESSMENT:44-year-old M with past medical history of DM who presents status post right MCA territory infarct PLAN: 1. 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 Neuro: s/p right MCA infarct having received tpa with left sided paresis and neglect -c/u ASA and statin for secondary stroke prevention, BP control -prozac for motor recovery - right sided headache, suspect nicotine and caffeine withdrawal as patient reports he had >10 cups of coffee a day, headaches resolved since initiation of Cymbalta and gabapentin-resolved, c/u Nicotine patch taper -CTH on 10-27-19 negative for new infarct, no new deficit on exam -neck paresthesias likely due to diabetic polyneuropathy 3. Cardiac: hx of HTN-c/u metoprolol and hydralazine, c/u monitor-medicine consulted to assist in management -HLD with hypertriglyceridemia with scattered Xanthoma lesions-c/u statin and Tricor -+peripheral edema improving, c/u lower dose gabapentin dosing and daily Lasix 20mg 4. resp: encourage incentive spirometry, monitor for infection -c/u duonebs 5. Endo: pmh DM will d/c Levemir and c/u ISS given drops in FS today 6. : with with urinary retention at [facility] started on Flomax, will c/u- monitor PVRs, voiding well -erectile dysfunction, causes likely multi-fold, will encourage patient to stop SSRI after total of 3 months, f/u with urology on d/c and avoid use of Viagra until at least 6 months following stroke 7. DVT ppx: Lovenox and TEDs, dopplers negative x2 8. GI ppx: holding Protonix, Colace, senna as can all contribute to loose stools- FOBT negative -Imodium prn loose stools 9. Pain: patient with right sided headaches that have resolved, c/u Cymbalta and gabapentin dosing -suspect left biceps femoris tendinitis, improving, c/u menthol salicylate rub, encourage stretching in therapy 10. Psych: trazodone 50mg qHS 11. Dispo: 11-22-19 to home, progressing towards goals Allergies Coded Allergies: lactose (Verified Adverse Reaction, Mild, GI UPSET, 10/26/19) Vital Signs Vital Signs Date Time Temp Pulse Resp B/P (MAP) Pulse Ox O2 Delivery O2 Flow Rate FiO2 11/21/19 09:21 72 133/62 11/21/19 06:00 96.9 18 94 Room Air Laboratory Data Labs 24H Laboratory Tests 2 11/20/19 11:34: Bedside Glucose (Misc Panel) 176H 11/20/19 16:58: Bedside Glucose (Misc Panel) 203H 11/20/19 20:25: Bedside Glucose (Misc Panel) 194H 11/21/19 05:07: Bedside Glucose (Misc Panel) 185H Current Medications Current Medications Current Medications Medications (Trade) Dose Ordered Sig/Anthony Route PRN Reason Start Time Stop Time Status Last Admin Dose Admin Acetaminophen (Tylenol Tab) 650 mg Q4HP PRN PO fever/MILD PAIN (PS 1-4) 10/26/19 14:00 10/26/19 17:07 DC Acetaminophen (Tylenol Tab) 650 mg TID PO 10/26/19 16:00 11/21/19 09:23 Acetaminophen/ Butalbital/ Caffeine (Fioricet) 1 ea Q4HP PRN PO HEADACHE 10/26/19 17:15 10/29/19 06:00 Albuterol/ Ipratropium (Duoneb (Ipr 0.5mg/Alb 2.5mg)) 3 ml RTID NEB 10/26/19 20:00 11/20/19 19:43 Aspirin (Aspirin) 325 mg STAT STAT PO 10/27/19 13:16 10/27/19 13:21 DC 10/27/19 13:26 Aspirin (Ecotrin) 81 mg DAILY PO 10/27/19 09:00 11/21/19 09:20 Atorvastatin Calcium (Lipitor) 80 mg QHS PO 10/27/19 21:00 11/20/19 21:45 Bisacodyl (Dulcolax Suppository) 10 mg DAILYPRN PRN NC BOWEL CARE/CONSTIPATION 10/27/19 10:45 Dextrose (Dextrose 50%) 25 ml ASDIRECTED PRN IV SEE LABEL COMMENTS 10/26/19 14:00 Docusate Sodium (Colace) 100 mg BID PO 10/26/19 21:00 11/04/19 12:13 DC 11/01/19 07:34 Duloxetine HCl (Cymbalta) 30 mg DAILY PO 10/29/19 09:00 11/21/19 09:21 Duloxetine HCl (Cymbalta) 30 mg DAILY PO 10/30/19 09:00 10/29/19 10:05 DC Enoxaparin Sodium (Lovenox) 40 mg DAILY SC 10/27/19 09:00 11/21/19 09:23 Fenofibrate (Tricor) 145 mg DAILY PO 10/27/19 09:00 11/21/19 09:20 Fluoxetine HCl (PROzac) 20 mg DAILY PO 10/27/19 09:00 10/29/19 09:29 DC 10/29/19 08:06 Furosemide (Lasix) 20 mg DAILY PO 11/16/19 16:30 11/21/19 09:21 Gabapentin (Neurontin) 100 mg TID PO 10/29/19 09:00 10/31/19 11:46 DC 10/31/19 09:12 Gabapentin (Neurontin) 100 mg TID PO 11/16/19 21:00 11/21/19 09:21 Gabapentin (Neurontin) 200 mg TID PO 10/31/19 16:00 11/16/19 16:29 DC 11/16/19 08:12 Glucagon (Glucagon) 1 mg ASDIRECTED PRN SC SEE LABEL COMMENTS 10/26/19 14:00 11/18/19 11:30 Glucose (Glucose) 16 GM ASDIRECTED PRN PO SEE LABEL COMMENTS 10/26/19 14:00 11/18/19 11:30 Home Med (Med Rec Complete!) ASDIRECTED XX 10/26/19 15:45 10/26/19 15:51 DC Hydralazine HCl (Apresoline) 25 mg TID PO 10/28/19 09:00 11/21/19 09:22 Insulin Detemir (Levemir Insulin) 5 units QHS SC 10/26/19 21:00 10/27/19 09:52 DC 10/26/19 21:59 Insulin Detemir (Levemir Insulin) 8 units QHS SC 10/27/19 21:00 11/02/19 10:45 DC 11/01/19 21:09 Insulin Detemir (Levemir Insulin) 10 units QHS SC 11/02/19 21:00 11/18/19 11:23 DC 11/16/19 20:28 Insulin Human Lispro (HumaLOG INSULIN) SEE PROTOCOL TABLE AC SC 10/26/19 17:30 11/21/19 09:20 Insulin Human Lispro (HumaLOG INSULIN) SEE PROTOCOL TABLE QHS SC 10/26/19 21:00 11/19/19 20:36 Lidocaine (Lidoderm Patch) 2 patch DAILY TD 11/07/19 09:00 11/07/19 12:15 DC 11/07/19 11:56 Loperamide HCl (Imodium) 2 mg ASDIRECTED PRN PO DIARRHEA 11/04/19 12:15 11/20/19 21:45 Magnesium Hydroxide (Milk Of Magnesia) 30 ml DAILYPRN PRN PO CONSTIPATION 10/26/19 14:00 Magnesium Oxide (Mag-Ox) 400 mg DAILY PO 10/27/19 09:00 11/04/19 12:13 DC 11/04/19 08:32 Menthol/Methyl Salicylate (Bengay Cream) 1 dose TID TOP 11/07/19 16:00 11/11/19 20:10 Metoprolol Tartrate (Lopressor) 25 mg BID PO 10/26/19 21:00 10/28/19 09:40 DC 10/28/19 07:23 Metoprolol Tartrate (Lopressor) 50 mg BID PO 10/28/19 21:00 11/21/19 09:21 Miscellaneous (Unresolved Clarification Entry) SEE LABEL COMMENTS DAILY XX 11/02/19 09:00 11/03/19 14:47 DC Miscellaneous (Unresolved Clarification Entry) SEE LABEL COMMENTS DAILY XX 11/19/19 09:00 Cancel Miscellaneous (Unresolved Clarification Entry) SEE LABEL COMMENTS DAILY XX 11/08/19 09:00 11/08/19 10:48 DC Nicotine (Nicoderm Cq 14mg) 1 patch DAILY TD 10/26/19 09:00 11/09/19 16:58 DC 11/09/19 08:53 Nicotine (Nicoderm Cq 7 Mg) 1 patch DAILY TD 11/10/19 09:00 11/17/19 16:36 DC 11/17/19 07:48 Nitroglycerin (Nitrostat (1/ 150)) 0.4 mg Q5MP PRN SL CHEST PAIN 10/27/19 13:30 10/27/19 15:57 Non-Formulary Medication ( See Comment Field Below ) REMOVE LIDODERM PATCH DAILY@21 XX 11/07/19 21:00 11/07/19 12:17 DC Ondansetron HCl (ZOFRAN INJection) 4 mg Q8HP PRN IV NAUSEA OR VOMITING 10/28/19 10:45 Ondansetron HCl (Zofran Odt) 4 mg Q6HP PRN PO NAUSEA OR VOMITING 10/27/19 13:30 10/29/19 07:10 Pantoprazole Sodium (Protonix) 40 mg DAILY PO 10/27/19 09:00 11/04/19 12:16 DC 11/04/19 08:32 Senna (Senokot) 1 tab QHS PO 10/26/19 21:00 11/04/19 12:13 DC 10/28/19 21:48 Tamsulosin HCl (Flomax) 0.4 mg DAILY PO 10/27/19 09:00 11/21/19 09:22 Tramadol HCl (Ultram) 25 mg Q6H PRN PO SEVERE HEADACHE 10/31/19 11:15 11/04/19 12:14 DC Tramadol HCl (Ultram) 50 mg Q4H PRN PO SEVERE HEADACHE 10/28/19 09:45 10/31/19 11:15 DC 10/30/19 12:32 Tramadol HCl (Ultram) 50 mg Q8H PRN PO SEVERE HEADACHE 10/27/19 12:30 10/28/19 09:40 DC 10/28/19 01:36 Trazodone HCl (Desyrel) 25 mg QHS PO 10/26/19 21:00 10/31/19 11:46 DC 10/30/19 21:23 Trazodone HCl (Desyrel) 50 mg QHS PO 10/31/19 21:00 11/20/19 21:45 TERRANCE PULIDO MD Nov 21, 2019 11:23
[2019-11-21] MEDS: IPRATROPIUM 0.5MG/ALBUTEROL 2.5MG INH SOL UD 3ML (DUONEB)(J7620) NEB SCH ×3 (11:24→19:36)
[2019-11-21 14:00] VITALS: BP 129/62
[2019-11-21 20:00] VITALS: BP 143/61
[2019-11-21] MEDS: ATORVASTATIN 20 MG TAB PO SCH (21:53)
[2019-11-21] MEDS: traZODone 50 MG TAB PO SCH (21:54)
[2019-11-22 06:00] VITALS: BP 131/70
[2019-11-22] MEDS: HumaLOG INSULIN (NovoLOG) PER UNIT SC SCH ×2 (06:58→12:55)
[2019-11-22] MEDS: IPRATROPIUM 0.5MG/ALBUTEROL 2.5MG INH SOL UD 3ML (DUONEB)(J7620) NEB SCH ×2 (07:30→14:00)
[2019-11-22] MEDS: **hydrALAZINE HCL** 25 MG TAB PO SCH (08:58)
[2019-11-22] MEDS: DULoxetine 30 MG CAP (CYMBALTA) PO SCH (08:58)
[2019-11-22] MEDS: TAMSULOSIN 0.4 MG CAP PO SCH (08:58)
[2019-11-22] MEDS: ASPIRIN 81 MG ENTERIC TAB PO SCH (08:58)
[2019-11-22] MEDS: FENOFIBRATE 145 MG TAB (TRICOR) PO SCH (08:58)
[2019-11-22 08:59] VITALS: BP 131/70
[2019-11-22] MEDS: FUROSEMIDE 20 MG TAB PO SCH (08:59)
[2019-11-22] MEDS: METOPROLOL TART 50 MG TAB PO SCH (08:59)
[2019-11-22] MEDS: ANALGESIC BALM CRM 120 GM TOP SCH (08:59)
[2019-11-22] MEDS: GABAPENTIN 100 MG CAP PO SCH (08:59)
[2019-11-22] MEDS: ACETAMINOPHEN TAB 650MG DOSE (2X325MG) PO SCH (08:59)
[2019-11-22] MEDS: ENOXAPARIN 40 MG/0.4 ML SYRINGE (J1650) SC SCH (08:59)
[2019-11-22] MEDS: REMEDY PHYTOPLEX Z-GUARD PASTE 113GM TUBE (FROM STOREROOM PRODUCT) TOP SCH (09:00)
== END 2019-11-22 16:10 | disposition home health service (06) | DRG 58 ==
LOC: M PM&R 14:55
PROVIDERS: ADMIT Physical Medicine & Rehabilitation; ATTEND Physical Medicine & Rehabilitation
DX: I69.321 Dysphasia following cerebral infarction (principal); I10 Essential (primary) hypertension; E11.9 Type 2 diabetes mellitus without complications; N52.9 Male erectile dysfunction, unspecified; L81.4 Other melanin hyperpigmentation; I69.354 Hemiplegia and hemiparesis following cerebral infarction affecting left non-dominant side; Z79.82 Long term (current) use of aspirin; Z79.4 Long term (current) use of insulin; Z79.899 Other long term (current) drug therapy